=== PATIENT | female | born 1960 | race Asian ===

== ENCOUNTER 2024-09-05 13:53 | Observation (INO) | payer SELFPAY ==
[2024-09-05] VITALS (13 sets, daily range): BP systolic 133–141; BP diastolic 87–102; PULSE 99–110; TEMP 36.4–37.2; O2SAT 92–99; BMI 29.1; BMI 29.4
--- NOTE | 2024-09-05 14:24 | ECG_ITS ---
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
--- NOTE | 2024-09-05 14:26 | ED_ITS ---
<Statement entered by Jamey Odom MD - 09/05/24 18:45> Chart was sent to my inbox for administrative and group management purposes. I was the attending physicians working during the patients hospital course. The patient was seen and managed independently by the MLP. I did not personally see or evaluate this patient, nor was I involved in the patient medical decision making process or plans of care. Pt was dispositioned by the MLP with complete independence and I was not involved in planning, and am reviewing this chart at a later date. I was available for consultation should the MLP request during this patients ED stay. Midlevel this documentation has been reviewed and approved. HPI HPI - General Adult General Chief complaint: Abdominal Pain Stated complaint: URTI COMPLAINTS Time Seen by Provider: 09/05/24 14:02 Source: patient Mode of arrival: walk-in Limitations: no limitations History of Present Illness HPI narrative: Patient is a 63-year-old female with no significant medical history who presents to the emergency department for 2-week history of shortness of breath and right upper quadrant abdominal pain. She reports most of her pain in the epigastrium with radiation to the right upper quadrant, pain is worse after eating. She denies fevers, chills. She has had a cough but no sputum production or chest congestion. She states when she eats she feels sometimes as though the food gets stuck in her esophagus and points to the sternal area. She reports pain with pushing on her abdomen and with eating but does not have pain constantly throughout the day. She denies previous abdominal surgeries. She has not had any low abdominal pain, flank or back pain, urinary symptoms or diarrhea. She states she feels winded when she is walking, she is noted to have tachypnea at initial interview. Related Data Home Medications ?Medication ?Instructions ?Recorded ?Confirmed No Known Home Medications 09/05/24 09/05/24 Allergies Allergy/AdvReac Type Severity Reaction Status Date / Time codeine Allergy Intermediate Hives Verified 09/05/24 14:15 clarithromycin (From Biaxin) Allergy Mild Hives Verified 09/05/24 14:15 Opioid HPI Opioid Management Most Recent Opioid Data: No Data to Display Review of Systems ROS Constitutional Denies: fever or chills Ears, nose, mouth, and throat Denies: throat pain or nasal congestion Cardiovascular Denies: chest pain Respiratory Reports: shortness of breath and cough; Denies: wheezing Gastrointestinal Reports: abdominal pain; Denies: nausea, vomiting or diarrhea Musculoskeletal Denies: back pain or neck pain Integumentary/Breast Denies: rash Neurological Denies: numbness in extremities or weakness in extremities Hematologic/Lymphatic Denies: easy bruising or easy bleeding [facility] Social History Little interest or pleasure in doing things: not at all Feeling down, depressed, or hopeless: not at all Exam Narrative Exam Narrative: Gen.: Awake, alert, in no distress Head: Normocephalic, atraumatic ENT: Moist mucous membranes Respiratory: No respiratory distress, faint expiratory wheezing in the right upper lobe, tachypnea noted Cardio: Regular rate and rhythm Gastrointestinal: Abdomen is soft, nondistended and tender to palpation in the epigastrium with no guarding or rebound, mild tenderness in the right upper quadrant. Extremities: Moves extremities equally Psych: Normal mood and affect Neuro: No focal neuro deficit Skin: Warm, dry, intact Constitutional Vital Signs, click to edit/add: Last Vital Signs Temp 99.0 F 09/05/24 14:15 Pulse 104 H 09/05/24 15:00 Resp 21 H 09/05/24 15:00 BP 133/92 H 09/05/24 14:44 Pulse Ox 99 09/05/24 15:00 O2 Del Method Room Air 09/05/24 14:55 Course Vital Signs Vital signs: Vital Signs Temperature 99.0 F 09/05/24 14:15 Pulse Rate 106 H 09/05/24 14:15 Respiratory Rate 20 09/05/24 14:15 Blood Pressure 141/102 H 09/05/24 14:15 Pulse Oximetry 94 L 09/05/24 14:15 Oxygen Delivery Method Room Air 09/05/24 14:15 Temperature 99.0 F 09/05/24 14:15 Pulse Rate 104 H 09/05/24 15:00 Respiratory Rate 21 H 09/05/24 15:00 Blood Pressure 133/92 H 09/05/24 14:44 Pulse Oximetry 99 09/05/24 15:00 Oxygen Delivery Method Room Air 09/05/24 14:55 Medical Decision Making MDM Narrative Medical decision making narrative: Patient was treated with Levsin and albuterol breathing treatment with imp rovement of her respiration in the ER, she is breathing more comfortably. Laboratory studies reviewed and noted showing elevated D-dimer, elevated BNP, elevated LFTs. Patient was sent for right upper quadrant ultrasound which shows a contracted gallbladder as the patient was not n.p.o., however there is evidence of gallstones with no evidence of acute cholecystitis. CT angio of the chest shows the patient has a small to moderate pericardial effusion with right- sided pleural effusion and interstitial edema of the lung. Case discussed with Dr. Dumont ([id number]) for cardiology who recommends admitting the patient to this facility with echocardiogram. Cardiology can be reconsulted if the patient does not fact have a large pericardial effusion, however this may be a finding that is equivocal on the CT. Patient and family are in agreement with admission for further evaluation and treatment of CHF, gallstones. SUPERVISED APC VISIT, PHYSICIAN ATTESTATION: Based on the medical record the care appears appropriate. ? Medical Records Medical records reviewed: Yes I reviewed the patient's medical records Lab Data Lab results reviewed: Yes I reviewed the patient's lab results Labs: Lab Results 09/05/24 09/05/24 Range/Units 14:37 14:40 WBC 8.8 (4.0-11.0) 10^3/uL RBC 4.46 (4.20-5.40) 10^6/uL Hgb 13.7 (12.0-16.0) g/dL Hct 41.3 (36.0-48.0) % MCV 92.6 (81.0-99.0) fL MCH 30.7 (26.7-34.0) pg MCHC 33.2 (29.9-35.2) g/dL RDW 13.8 (11.0-15.0) % Plt Count 288 (150-450) 10^3/uL MPV 10.5 (9.5-13.5) fL Neut % (Auto) 64.6 (43.0-75.0) % Lymph % (Auto) 23.8 (20.5-60.0) % Mcleod % (Auto) 9.0 (1.7-12.0) % Eos % (Auto) 1.3 (0.9-7.0) % Baso % (Auto) 1.0 (0.2-2.0) % Neut # (Auto) 5.7 (1.4-6.5) 10^3/uL Lymph # (Auto) 2.1 (1.2-3.8) 10^3/uL Mcleod # (Auto) 0.8 (0.3-0.8) 10^3/uL Eos # (Auto) 0.1 (0.0-0.7) 10^3/uL Baso # (Auto) 0.1 (0.0-0.1) 10^3/uL Abs Immat Gran (auto) 0.03 (0.00-0.03) 10^3/uL Imm/Tot Granulo (auto) 0.3 (0.0-0.5) % PT 11.9 H (9.0-11.6) sec INR 1.14 D-Dimer 1.27 H* (<=0.59) mg/L FEU VBG pH 7.496 H (7.330-7.430) VBG pCO2 34.4 L (40.0-52.0) mmHg Sodium 139 (136-145) mmol/L Potassium 4.9 (3.5-5.1) mmol/L Chloride 102 (98-107) mmol/L Carbon Dioxide 26.4 (21.0-32.0) mmol/L Anion Gap 15.5 BUN 15.0 (7.0-18.0) mg/dL Creatinine 0.98 (0.55-1.02) mg/dL Est GFR ( Amer) >60 (>=60 mL/min/1.73m^2) Est GFR (Non-Af Amer) 58 L (>=60 mL/min/1.73m^2) BUN/Creatinine Ratio 15.3 Glucose 131 H (74-106) mg/dL Lactate 1.7 (0.4-2.0) mmol/L Calcium 9.4 (8.5-10.1) mg/dL Total Bilirubin 0.9 (0.2-1.0) mg/dL AST 163 H (15-37) U/L ALT 378 H (14-59) U/L Alkaline Phosphatase 139 H (46-116) U/L Troponin I High Sens 34.1 (4.0-51.3) pg/mL NT-Pro-B Natriuret Pep 2312.0 H* (<=900.0) pg/mL Total Protein 7.2 (6.4-8.2) g/dL Albumin 3.7 (3.4-5.0) g/dL Globulin 3.5 g/dL Albumin/Globulin Ratio 1.1 Lipase 51.0 (16.0-77.0) U/L Urine Color Yellow (YELLOW) Urine Clarity Clear (CLEAR) Urine pH 6.5 (5.0-9.0) Ur Specific [place] 1.020 (1.005-1.025) Urine Protein 30 A (NEG/TRACE) mg/dL Urine Glucose (UA) Negative (NEGATIVE) mg/dL Urine Ketones Trace A (NEGATIVE) mg/dL Urine Occult Blood Negative (NEGATIVE) Urine Nitrite Negative (NEGATIVE) Urine Bilirubin Negative (NEGATIVE) Urine Urobilinogen 1.0 (0.2-1.0) EU/dL Ur Leukocyte Esterase Trace A (NEGATIVE) Urine RBC None seen (0-2) #/HPF Urine WBC 0-2 A (NONE SEEN) #/HPF Ur Squamous Epith Cells Few A (NONE/RARE) #/LPF Urine Crystals None seen (None Seen) #/HPF Urine Bacteria Trace A (NONE SEEN) #/HPF Urine Casts None seen (NONE SEEN) #/LPF Urine Mucus Trace A (NONE SEEN) Ur Culture Indicated? No Imaging Data CT scan - chest: Attestation: I have reviewed the pertinent imaging results. Radiologist's impression: ITS Impressions Upper Quadrant Ultrasound 09/05/24 15:09 IMPRESSION: 1. Probable cholelithiasis, however no other findings to suggest acute cholecystitis are evident. 2. Diffuse hepatic steatosis. Electronically authenticated by: NICOLE TENORIO Date: 09/05/2024 16:27 Chest CTA 09/05/24 15:44 IMPRESSION: 1. No pulmonary embolism. 2. Pulmonary interstitial edema and small right pleural effusion. 3. Small moderate-sized pericardial effusion. Electronically authenticated by: NICOLE TENORIO Date: 09/05/2024 16:07 ECG Data Attestation: I personally reviewed and interpreted this ECG as follows: (Sinus tachycardia at a rate of 114, no acute ST elevation or ectopy. EKG reviewed by attending physician) Discharge Plan Discharge Chief Complaint: Abdominal Pain Patient Disposition: Admitted as Observation Time of Disposition Decision: 16:42
[2024-09-05 14:50] LABS: PCO2 VBG 34.4 mmHg (40.0-52.0); pH VBG 7.496 (7.330-7.430)
[2024-09-05] MEDS: HYOSCYAMINE SULFATE 0.125 MG TAB.SUBL SL (14:50)
[2024-09-05] MEDS: ALBUTEROL SULFATE 2.5 MG/3 ML VIAL NEB IH (14:55)
[2024-09-05 14:56] LABS: Basophils Absolute Auto 0.1 10^3/uL (0.0-0.1); Eosinophils Absolute Auto 0.1 10^3/uL (0.0-0.7); Eosinophils Percent Auto 1.3 % (0.9-7.0); Hematocrit 41.3 % (36.0-48.0); Hemoglobin 13.7 g/dL (12.0-16.0); Immature Granulocytes Abs Auto 0.03 10^3/uL (0.00-0.03); Immature Granulocytes Pct Auto 0.3 % (0.0-0.5); Lymphocytes Absolute Auto 2.1 10^3/uL (1.2-3.8); Lymphocytes Percent Auto 23.8 % (20.5-60.0); Mean Corpuscular HGB Conc 33.2 g/dL (29.9-35.2); Mean Corpuscular Hemoglobin 30.7 pg (26.7-34.0); Mean Corpuscular Volume 92.6 fL (81.0-99.0); Mean Platelet Volume 10.5 fL (9.5-13.5); Monocytes Absolute Auto 0.8 10^3/uL (0.3-0.8); Neutrophils Absolute Auto 5.7 10^3/uL (1.4-6.5); Neutrophils Percent Auto 64.6 % (43.0-75.0); Platelet Count 288 10^3/uL (150-450); Red Blood Count 4.46 10^6/uL (4.20-5.40); Red Cell Distribution Width 13.8 % (11.0-15.0); White Blood Count 8.8 10^3/uL (4.0-11.0)
[2024-09-05 15:00] LABS: Bilirubin Urine NEGATIVE (NEGATIVE); Blood Urine NEGATIVE (NEGATIVE); Clarity Urine CLEAR (CLEAR); Color Urine YELLOW (YELLOW); Glucose Urine UA NEGATIVE (NEGATIVE); Ketones Urine TRACE mg/dL (NEGATIVE); Leukocyte Esterase Urine TRACE (NEGATIVE); Nitrite Urine NEGATIVE (NEGATIVE); Protein Urine 30 mg/dL (NEG/TRACE); pH Urine 6.5 (5.0-9.0)
[2024-09-05 15:02] LABS: Urine Microscopic Indicated YES
[2024-09-05 15:05] LABS: INR 1.14; Prothrombin Time 11.9 sec (9.0-11.6)
[2024-09-05 15:08] LABS: Alanine Aminotransferase 378 U/L (14-59); Albumin Globulin Ratio 1.1; Albumin Level 3.7 g/dL (3.4-5.0); Alkaline Phosphatase 139 U/L (46-116); Anion Gap 15.5; Aspartate Amino Transferase 163 U/L (15-37); BUN Creatinine Ratio 15.3; Bilirubin Total 0.9 mg/dL (0.2-1.0); Calcium 9.4 mg/dL (8.5-10.1); Carbon Dioxide 26.4 mmol/L (21.0-32.0); Chloride 102 mmol/L (98-107); D Dimer 1.27 mg/L FEU (<=0.59); Estimated GFR (African America >60 (>=60 mL/min/1.73m^2); Estimated GFR (Non-African Ame 58 (>=60 mL/min/1.73m^2); Globulin 3.5 g/dL; Glucose 131 mg/dL (74-106); Potassium 4.9 mmol/L (3.5-5.1); Sodium 139 mmol/L (136-145); Total Protein 7.2 g/dL (6.4-8.2)
--- NOTE | 2024-09-05 15:09 | US_ITS ---
The [address] [address] Patient Name: JOHNNY LOBO MRN: [id number] date: 1960 Sex: F Assigned Patient Location: ER Current Patient Location: ER Accession/Order Number: [id number] Exam Date: 09/05/2024 15:48 Report Date: 09/05/2024 16:27 At the request of: YAIR SILVESTRE Procedure: US right upper quadrant EXAM: Abdominal ultrasound limited CLINICAL INDICATION: right upper quad pain. COMPARISON: CT scan dated 03/17/2012 TECHNIQUE: Grayscale and color Doppler imaging was performed of the right upper quadrant abdomen. FINDINGS: Liver: Diffuse hepatic steatosis. No hepatomegaly. No abnormal hepatic masses. Portal and hepatic veins are grossly patent. Gallbladder: Probable cholelithiasis. No gallbladder wall thickening. No pericholecystic fluid. No evidence of sonographic Dominguez's sign noted by the department sales manager. Nondistended gallbladder. Biliary: No intrahepatic biliary ductal dilation. Common bile duct measures 5 mm. Kidneys: No right hydronephrosis. No sonographically evident right renal calculi. No right renal masses. Right kidney measures 11.3 cm length. Aorta/IVC: Patent and normal caliber where visualized. US/US right upper quadrant IMPRESSION: 1. Probable cholelithiasis, however no other findings to suggest acute cholecystitis are evident. 2. Diffuse hepatic steatosis. Electronically authenticated by: NICOLE TENORIO Date: 09/05/2024 16:27
[2024-09-05 15:10] LABS: Lactate/Lactic Acid 1.7 mmol/L (0.4-2.0)
[2024-09-05 15:13] LABS: Troponin I High Sensitivity 34.1 pg/mL (4.0-51.3)
[2024-09-05 15:19] LABS: Bacteria Urine TRACE #/HPF (NONE SEEN); Cast Seen? NONE SEEN #/LPF (NONE SEEN); Crystals Seen? None Seen #/HPF (None Seen); Mucus Urine TRACE (NONE SEEN); RBC Urine NONE SEEN #/HPF (0-2); Squamous Epithelial Cell Urine FEW #/LPF (NONE/RARE); WBC Urine 0-2 #/HPF (NONE SEEN)
[2024-09-05 15:20] LABS: Urine Culture Indicated NO
--- NOTE | 2024-09-05 15:44 | CT_ITS ---
[address] [address] Patient Name: JOHNNY LOBO MRN: [id number] date: 1960 Sex: F Assigned Patient Location: ER Current Patient Location: Accession/Order Number: [id number] Exam Date: 09/05/2024 15:35 Report Date: 09/05/2024 16:07 At the request of: YIAR SILVESTRE Procedure: CT angio chest EXAM: CT pulmonary angiogram of the chest using 100 mL of IV iodinated contrast. 3-D imaging was performed. Dose reduction technique used: Automated exposure control and/or adjustment of the mA and/or kV according to patient size and/or use of iterative reconstruction technique. REASON FOR EXAM: Shortness of breath x 2 weeks COMPARISON: None FINDINGS: No pulmonary emboli. No pneumothorax. No acute fractures. No concerning pulmonary nodules. No definite lymphadenopathy in the chest. Interlobular septal thickening in both lungs. Small right pleural effusion. Coronary atherosclerotic calcifications are present. Cardiomegaly. Small to moderate-sized pericardial effusion. Remainder unremarkable. CT/CT angio chest IMPRESSION: 1. No pulmonary embolism. 2. Pulmonary interstitial edema and small right pleural effusion. 3. Small moderate-sized pericardial effusion. Electronically authenticated by: NICOLE TENORIO Date: 09/05/2024 16:07
[2024-09-05] MEDS: FUROSEMIDE 40 MG/4 ML VIAL IVP (17:56)
[2024-09-06] VITALS (16 sets, daily range): BP systolic 125–132; BP diastolic 72–84; PULSE 93–106; TEMP 36.4–36.8; O2SAT 92–98
[2024-09-06 05:54] LABS: Basophils Absolute Auto 0.1 10^3/uL (0.0-0.1); Basophils Percent Auto 1.2 % (0.2-2.0); Eosinophils Absolute Auto 0.2 10^3/uL (0.0-0.7); Eosinophils Percent Auto 2.9 % (0.9-7.0); Hematocrit 40.4 % (36.0-48.0); Hemoglobin 13.6 g/dL (12.0-16.0); Immature Granulocytes Abs Auto 0.04 10^3/uL (0.00-0.03); Immature Granulocytes Pct Auto 0.5 % (0.0-0.5); Lymphocytes Absolute Auto 1.8 10^3/uL (1.2-3.8); Lymphocytes Percent Auto 24.2 % (20.5-60.0); Mean Corpuscular HGB Conc 33.7 g/dL (29.9-35.2); Mean Corpuscular Hemoglobin 31.2 pg (26.7-34.0); Mean Corpuscular Volume 92.7 fL (81.0-99.0); Mean Platelet Volume 10.2 fL (9.5-13.5); Monocytes Absolute Auto 0.9 10^3/uL (0.3-0.8); Monocytes Percent Auto 11.5 % (1.7-12.0); Neutrophils Absolute Auto 4.5 10^3/uL (1.4-6.5); Neutrophils Percent Auto 59.7 % (43.0-75.0); Platelet Count 282 10^3/uL (150-450); Red Blood Count 4.36 10^6/uL (4.20-5.40); Red Cell Distribution Width 13.9 % (11.0-15.0); White Blood Count 7.5 10^3/uL (4.0-11.0)
[2024-09-06] MEDS: FUROSEMIDE 40 MG/4 ML VIAL IVP ×2 (06:03→18:11)
[2024-09-06 06:33] LABS: Alanine Aminotransferase 323 U/L (14-59); Albumin Globulin Ratio 1.1; Albumin Level 3.7 g/dL (3.4-5.0); Alkaline Phosphatase 128 U/L (46-116); Anion Gap 14.2; Aspartate Amino Transferase 129 U/L (15-37); BUN Creatinine Ratio 19.2; Bilirubin Total 0.9 mg/dL (0.2-1.0); Calcium 9.1 mg/dL (8.5-10.1); Carbon Dioxide 28.4 mmol/L (21.0-32.0); Chloride 101 mmol/L (98-107); Estimated GFR (African America >60 (>=60 mL/min/1.73m^2); Estimated GFR (Non-African Ame >60 (>=60 mL/min/1.73m^2); Globulin 3.5 g/dL; Glucose 128 mg/dL (74-106); Potassium 3.6 mmol/L (3.5-5.1); Sodium 140 mmol/L (136-145); Total Protein 7.2 g/dL (6.4-8.2)
--- NOTE | 2024-09-06 07:00 | CA_ITS ---
Patient Name: JOHNNY LOBO MR#: [id number] : 1960 Exam Date: 09/06/2024 Ordering Doctor: SHAIKH James OLIVERA . ECHOCARDIOGRAM REPORT PROCEDURE: CA ECHO DOPPLER COMPLETE INDICATIONS: chf COMPARISON: None. DESCRIPTION: COMPLETE ECHOCARDIOGRAM Real-time transthoracic echocardiography with 2D, M-mode, spectral and color flow Doppler performed. QUALITY: Technical quality was good. LEFT VENTRICLE: Mild dilatation. Mild concentric left ventricular hypertrophy. LV EF: Global left ventricular systolic function is severely reduced; visually estimated ejection fraction is 15 to 20%. Severe, diffuse hypokinesis. DIASTOLIC: Grade 2 diastolic dysfunction. ATRIAL SEPTUM: Inadequately seen. LEFT ATRIUM: Severe dilatation. RIGHT ATRIUM: Mild dilatation. RIGHT VENTRICLE: Normal chamber size. Decreased right ventricular systolic function. TRICUSPID VALVE: Normal mobility and thickness. Mild regurgitation. No evidence of pulmonary hypertension. RVSP 29mmHg MITRAL VALVE: Normal mobility and thickness. No evidence of mitral valve stenosis. There is no mitral annular calcification. Moderate mitral regurgitation. AORTIC VALVE: Normal trileaflet appearance. No visible sclerosis. Normal leaflet mobility. No evidence of aortic valve stenosis. No aortic regurgitation. AORTIC ROOT: Normal diameter and appearance. PULMONIC VALVE: Normal thickness and mobility. No stenosis. Mild regurgitation. PERICARDIUM: Small pericardial effusion. IVC: Collapses with inspirations. Normal size. CONCLUSION: 1. Global left ventricular systolic function is severely reduced; visually estimated ejection fraction is 15 to 20% 2. Mild left ventricular hypertrophy 3. The right ventricle is normal in size with reduced systolic function 4. Grade 2 diastolic dysfunction 5. Biatrial dilatation 6. Mild tricuspid regurgitation 7. Moderate mitral regurgitation 8. Mild pulmonic regurgitation 9. Small circumferential pericardial effusion Adult Echocardiography Procedure Report Left Ventricle LVEDD (3.7 - 5.6 cm): 5.72 cm LVESD (2.2 - 4.0 cm): 4.97 cm LVIVS thickness (0.6 - 1.2 cm): 1.29 cm LVPW thickness (0.5 - 1.0 cm): 1.07 cm LVOT Max Gradient: 2 mm[Hg] Peak Velocity (LVOT): 63.20 cm/s Mean Velocity (LVOT): 41.20 cm/s LVOT Diameter 2.00 cm Left Ventricular Ejection Fraction: 27.30 % Left Atrium LA Volume Index (2D A2C): 30965 mm3 Left Atrium Systolic Dimension: 4.80 cm Mitral Valve MV E to A Ratio: 1.60 Mitral Valve A-Wave Peak Velocity: 61.20 cm/s Mitral Valve E-Wave Peak Velocity: 98.20 cm/s Right Ventricle Aorta AO Root Diam: 3.20 cm Aortic Valve AoV Area (Peak Abner): 2.07 cm2 AoV Area (VTI): 1.97 cm2 Peak Velocity(Antegrade Flow): 95.90 cm/s Peak Gradient(Antegrade Flow): 4 mm[Hg] Mean Velocity(Antegrade Flow): 67.30 cm/s Mean Gradient(Antegrade Flow): 2 mm[Hg] Velocity Time Integral: 15.90 cm Tricuspid Valve Peak Velocity (Regurgitant Flow): 257.00 cm/s Peak Velocity: 53.80 cm/s Pulmonic Valve Peak Velocity: 78.70 cm/s, 80.10 cm/s Peak Gradient: 3 mm[Hg] Right Atrium Dictated by: Navdeep Alva M.D. on 09/08/2024 at 15:08 Approved by: Navdeep Alva M.D. on 09/08/2024 at 15:13
--- NOTE | 2024-09-06 10:56 | P.HP_ITS ---
HPI H&P: HPI History of Present Illness Chief complaint: URTI COMPLAINTS CHF SOB CHOLELITHIASIS Narrative: 63-year-old female with no past medical history presented to ER with dry cough for 2 weeks and worsening shortness of breath for over a week. She reports that her shortness of breath is exertional in nature and last evening she could hardly catch her breath. She also reports intermittent epigastric and right upper quadrant abdominal pain/discomfort that is associated with food intake. She denies nausea or vomiting but admits to postprandial fullness and abdominal bloating. She denies constipation or diarrhea. Upon arrival, she had increased work of breathing with tachypnea and accessory muscles use and she was given one dose of albuterol. Her work up revealed elevated BNP and evidence of volume overload on CXR and CTA that also revealed moderate sized pericardial effusion. Patient also had an ultrasound of right upper quadrant that showed cholelithiasis but no evidence of cholecystitis. Patient admitted for acute congestive heart failure and symptomatic cholelithiasis. She was started on IV Lasix 40 twice daily and admitted for observation overnight. Opioid HPI Opioid Management Most Recent Pain and Opioid Data: Last Pain Assessment 09/06/24 10:00 Last ORT Total Score 0 09/05/24 18:21 09/05/24 Last ORT Risk Category Low Risk 09/05/24 18:21 09/05/24 Review of Systems ROS Status of ROS 10 or more systems reviewed and unremark able except as noted in history and below [facility] Medical History (Updated 09/06/24 @ 11:02 by Shaikh Tameka MD) Fatty liver disease, nonalcoholic ?K76.0 - Fatty (change of) liver, not elsewhere classified (ICD-10) Social History (Updated 09/06/24 @ 11:01 by Shaikh Tameka MD) Within the past year, how often did you have a drink containing alcohol: never Score interpretation: A score less than 3 is consistent with normal alcohol consumption. Smoking status: Never smoker Non-prescribed substance use: denies use Highest level of school completed/degree received: high school graduate Little interest or pleasure in doing things: not at all Feeling down, depressed, or hopeless: not at all Meds Home Medications and Allergies Home Medications ?Medication ?Instructions ?Recorded ?Confirmed ?Type No Known Home Medications 09/05/24 09/05/24 History Allergies Allergy/AdvReac Type Severity Reaction Status Date / Time codeine Allergy Intermediate Hives Verified 09/05/24 14:15 clarithromycin (From Biaxin) Allergy Mild Hives Verified 09/05/24 14:15 Exam Constitutional Vital Signs, click to edit/add: Last Vital Signs Temp 97.5 F L 09/06/24 07:44 Pulse 96 H 09/06/24 09:59 Resp 18 09/06/24 07:44 BP 125/84 09/06/24 07:44 Pulse Ox 95 09/06/24 09:14 O2 Del Method Room Air 09/06/24 09:14 Documenting provider has reviewed patient's vital signs: yes Common normals: no apparent distress and oriented x3 General appearance: cooperative and comfortable HENMT Common normals: normocephalic and head/scalp atraumatic Head and scalp: normocephalic and atraumatic Eye Common normals: conjunctivae normal and no scleral icterus Conjunctiva: conjunctiva(e) normal Respiratory Common normals: normal respiratory effort, no use of accessory muscles and clear to auscultation bilaterally Effort & inspection: able to speak in complete sentences Auscultation: diminished lung sounds Cardio Common normals: regular rate, S1 normal heart sound and S2 normal heart sound Rate: regular rate Heart sounds: S1 normal and S2 normal GI Common normals: Normal to inspection, nondistended, normoactive bowel sounds present, soft to palpation, non-tender and no hepatosplenomegaly Palpation: soft and no hepatosplenomegaly Extremity Common normals: no clubbing, cyanosis or edema Neuro Common normals: oriented x3, moves all extremities and no focal motor deficits Psych Common normals: mental status grossly normal, denies hallucinations, denies homicidal ideation and denies suicidal ideation Results Labs Labs: Short CBC 09/05/24 09/06/24 Range/Units 14:37 05:40 WBC 8.8 7.5 (4.0-11.0) 10^3/uL Hgb 13.7 13.6 (12.0-16.0) g/dL Hct 41.3 40.4 (36.0-48.0) % Plt Count 288 282 (150-450) 10^3/uL BMP 09/05/24 09/06/24 14:37 05:40 Sodium 139 140 Potassium 4.9 3.6 Chloride 102 101 Carbon Dioxide 26.4 28.4 BUN 15.0 15.0 Creatinine 0.98 0.78 Glucose 131 H 128 H Calcium 9.4 9.1 Liver Function 09/05/24 09/06/24 Range/Units 14:37 05:40 Total Bilirubin 0.9 0.9 (0.2-1.0) mg/dL AST 163 H 129 H (15-37) U/L ALT 378 H 323 H (14-59) U/L Alkaline Phosphatase 139 H 128 H (46-116) U/L Albumin 3.7 3.7 (3.4-5.0) g/dL Urine 09/05/24 Range/Units 14:40 Urine Color Yellow (YELLOW) Urine Clarity Clear (CLEAR) Urine pH 6.5 (5.0-9.0) Ur Specific [place] 1.020 (1.005-1.025) Urine Protein 30 A (NEG/TRACE) mg/dL Urine Glucose (UA) Negative (NEGATIVE) mg/dL ABG ABG results: 09/05/24 14:37 VBG pH 7.496 H VBG pCO2 34.4 L Assessment and Plan Assessment and Plan (1) Acute congestive heart failure: Assessment and Plan: Congestive heart failure with elevated BNP, pleural effusion and pericardial effusion on chest x-ray and CTA chest. Patient diuresed well overnight with IV Lasix. Still volume overload and will benefit from continued IV diuresis. Echocardiogram ordered to assess cardiac structure is pending. Monitor intake and output. Daily weights. Qualifiers: Heart failure type: unspecified Qualified Code(s): I50.9 - Heart failure, unspecified (2) Cholelithiasis: Assessment and Plan: Symptomatic cholelithiasis with no evidence of cholecystitis. Will order HIDA scan as patient has elevated liver enzymes. Qualifiers: Biliary obstruction: without biliary obstruction Cholecystitis presence: without cholecystitis Cholelithiasis location: gallbladder Qualified Code(s): K80.20 - Calculus of gallbladder without cholecystitis without obstruction (3) Transaminitis: Assessment and Plan: Likely due to combination of fatty liver disease/cholelithiasis along with vascular congestion from acute congestive heart failure. No evidence of cholecystitis on ultrasound and clinical exam. Will order hepatitis panel and HIDA scan (4) Fatty liver disease, nonalcoholic: Assessment and Plan: Recommend weight loss. This can be discussed as an outpatient (5) Pericardial effusion: Assessment and Plan: Noted on CTA chest. Echocardiogram is pending. Continue with IV Lasix (6) D-dimer, elevated: Assessment and Plan: No evidence of pulmonary embolism on CTA
--- NOTE | 2024-09-06 11:27 | CM.NOTE ---
Rounds made with Dr. English. Dr. English reviews test results and plan of care. Ms. Wade verbalizes understanding.
--- NOTE | 2024-09-06 12:01 | CM.NOTE ---
Reviewed insurance information with Ms. Wade. Currently without insurance. Financial Counselors consulted.
--- NOTE | 2024-09-06 12:46 | DIETREC ---
Recommend Heart Healthy diet (low fat, 2 gm sodium, low caffeine) d/t dx CHF, pericardial effusion, fatty liver disease, edema.
[2024-09-06 13:10] LABS: Estimated Average Glucose 137 mg/dL; Glycohemoglobin A1C 6.4 % (4.5-6.2)
[2024-09-06] MEDS: LOSARTAN POTASSIUM 50 MG TABLET PO (14:28)
--- NOTE | 2024-09-06 19:44 | NUTR.NU ---
Diet consult completed; nutrition assessment to follow.
[2024-09-06] MEDS: CARVEDILOL 6.25 MG TABLET PO (21:47)
[2024-09-07] VITALS: PULSE 83
[2024-09-07 02:00] VITALS: PULSE 91
[2024-09-07 03:58] VITALS: BP 118/83; PULSE 94; TEMP 36.5; O2SAT 95
--- NOTE | 2024-09-07 03:59 | PC.NURSE ---
[facility] here for transport to [facility]. Vitals taken, IV will stay in for transport.
--- NOTE | 2024-09-07 04:05 | PC.NURSE ---
Report given to nurse at [facility] for room 3125
[2024-09-07 09:13] LABS: HBsAg Screen Negative (Negative); HCV Ab Non Reactive (Non Reactive); Hep A Ab, IgM Negative (Negative); Hep B Core Ab, IgM Negative (Negative)
--- NOTE | 2024-09-08 11:02 | P.DS_ITS ---
DS: Providers Provider Date of admission: 09/05/24 18:04 Primary care physician: DUGLAS RUFF Admitting clinician: Shaikh Tameka Attending physician on admission: Shaikh Tameka Consults: 09/05/24 Consult to Dietitian Routine Reason for consultation: unintentional weight loss of 2 lbs Attending physician on discharge: Shaikh Tameka Discharging clinician: Shaikh Tameka Anticipated date of discharge: 09/08/24 DS: Diagnosis Discharge Diagnosis (1) Acute congestive heart failure: Qualifiers: Heart failure type: unspecified Qualified Code(s): I50.9 - Heart failure, unspecified (2) Cholelithiasis: Qualifiers: Biliary obstruction: without biliary obstruction Cholecystitis presence: without cholecystitis Cholelithiasis location: gallbladder Qualified Code(s): K80.20 - Calculus of gallbladder without cholecystitis without obstruction (3) Transaminitis: (4) Fatty liver disease, nonalcoholic: (5) Pericardial effusion: (6) D-dimer, elevated: DS: Summary Hospital Course Hospital Course: 63-year-old female with no past medical history presented to ER with dry cough for 2 weeks and worsening shortness of breath for over a week. She also reported intermittent epigastric and right upper quadrant abdominal pain/discomfort associated with food intake. Upon arrival, she had increased work of breathing with tachypnea and accessory muscles use and she was given one dose of albuterol. Her work up revealed elevated BNP and evidence of volume overload on CXR and CTA that also revealed moderate sized pericardial effusion. Patient also had an ultrasound of right upper quadrant that showed cholelithiasis but no evidence of cholecystitis. Patient admitted for acute congestive heart failure and symptomatic cholelithiasis. She was started on IV Lasix 40 twice daily. Subsequent day of hospital stay, she felt better overall but was stil SOB on exertion. Her ECHO revealed severely reduced EF, global hypokinesis and after consultation with Cardiology, she was transfer to [facility] for LHC. Time Spent with Patient Time attestation: Total time spent providing and/or coordinating discharge services: Exam Constitutional Vital Signs, click to edit/add: Last Vital Signs Temp 97.7 F 09/07/24 03:58 Pulse 94 H 09/07/24 03:58 Resp 18 09/07/24 03:58 BP 118/83 09/07/24 03:58 Pulse Ox 95 09/07/24 03:58 O2 Del Method Room Air 09/07/24 03:58 Discharge Plan Discharge Disposition: [facility] Condition: Good Discharge Date/Time: 09/07/24 04:11 Discharge Location: [facility] Discharge location: [facility]
== END 2024-09-07 04:11 | disposition short-term general hospital (02) ==
LOC: ER 16:43 → MS 18:13
PROVIDERS: Physician Assistant; Admitting Provider Internal Medicine; Emergency Provider Emergency Medicine; PCP Family Medicine; Visit Provider Internal Medicine
DX: I50.21 Acute systolic (congestive) heart failure (principal); K80.20 Calculus of gallbladder without cholecystitis without obstruction; I42.9 Cardiomyopathy, unspecified; K76.0 Fatty (change of) liver, not elsewhere classified; R79.89 Other specified abnormal findings of blood chemistry; I31.39 Other pericardial effusion (noninflammatory); R74.01 Elevation of levels of liver transaminase levels
CPT/HCPCS: 36415; 71275; 76705; 80053; 80074; 81001; 82800; 83036; 83605; 83690; 83880; 84484; 85025; 85378; 85610; 93005; 93306; 94640; 94761; 96374; 96376; 99285; G0378; J1940; Q9967

== ENCOUNTER 2024-11-16 12:57 | Outpatient (OUT) | payer SELFPAY ==
--- NOTE | 2024-11-16 13:00 | CA_ITS ---
Patient Name: JOHNNY LOBO MR#: [id number] : 1960 Exam Date: 11/16/2024 Ordering Doctor: DR. AMERICA GURROLA M.D. ECHOCARDIOGRAM REPORT PROCEDURE: CA ECHO DOPPLER COMPLETE INDICATIONS: Pericardial effusion, CHF COMPARISON: None. DESCRIPTION: COMPLETE ECHOCARDIOGRAM Real-time transthoracic echocardiography with 2D, M-mode, spectral and color flow Doppler performed. QUALITY: Technical quality was good. LEFT VENTRICLE: Normal chamber size. Normal left ventricular wall thickness. Systolic function is moderately to severely reduced. LV EF: Moderately to severely reduced left ventricular ejection fraction, (30%). DIASTOLIC: ATRIAL SEPTUM: Visually appears intact. LEFT ATRIUM: Mild chamber dilatation. RIGHT ATRIUM: Mild chamber dilatation. RIGHT VENTRICLE: Normal chamber size. Normal right ventricular systolic function. TRICUSPID VALVE: Normal mobility and thickness. No stenosis with trivial regurgitation. No evidence of pulmonary hypertension. RVSP 23 mmHg MITRAL VALVE: Normal mobility and thickness. No evidence of mitral valve stenosis. There is no mitral annular calcification. Mild mitral regurgitation. AORTIC VALVE: Normal trileaflet appearance. No visible sclerosis. Normal leaflet mobility. No evidence of aortic valve stenosis. No aortic regurgitation. AORTIC ROOT: Normal diameter and appearance, measuring 3.3 cm. Ascending aorta is normal in size, measuring 2.9 cm. PULMONIC VALVE: Normal thickness and mobility. No stenosis. Trivial regurgitation. PERICARDIUM: No evidence of pericardial effusion. IVC: Collapses with inspirations. IVC is normal in size. PLEURA: CONCLUSION: 1. The left ventricle is normal in size and exhibits moderately to severely reduced systolic function. LVEF is estimated at 30%. 2. Normal right ventricular size and systolic function. 3. Mild biatrial dilatation. 4. Mild mitral regurgitation. 5. Normal right-sided pressures. 6. No pericardial effusion. Adult Echocardiography Procedure Report Left Ventricle LVEDD (3.7 - 5.6 cm): 5.24 cm LVESD (2.2 - 4.0 cm): 3.60 cm LVIVS thickness (0.6 - 1.2 cm): 1.13 cm LVPW thickness (0.5 - 1.0 cm): 1.01 cm e': 0.07 m/s E - e': 5.86 LVOT Max Gradient: 2.68 mm[Hg] LVOT Area (cm2): 0.82 m/s Peak Velocity (LVOT): 0.82 m/s Mean Velocity (LVOT): 0.50 m/s LVOT Diameter 2.18 cm Left Atrium LA Volume Index (2D A2C): 27.97 ml/m2 Left Atrium Systolic Dimension: 4.05 cm Mitral Valve MV E to A Ratio: 0.51 Mitral Valve A-Wave Peak Velocity: 0.81 m/s Mitral Valve E-Wave Peak Velocity: 0.41 m/s Right Ventricle Aorta AO Root Diam: 3.29 cm Ascending Ao Diam: 2.87 cm Aortic Valve AoV Area (Peak Abner): 2.41 cm2, 2.41 cm2 AoV Area (VTI): 2.58 cm2, 2.58 cm2 Peak Velocity(Antegrade Flow): 1.27 m/s Peak Gradient(Antegrade Flow): 6.46 mm[Hg] Mean Velocity(Antegrade Flow): 0.84 m/s Mean Gradient(Antegrade Flow): 3.22 mm[Hg] Velocity Time Integral: 22.50 cm Tricuspid Valve Peak Velocity (Regurgitant Flow): 2.22 m/s Pulmonic Valve Mean Gradient: 1.72 mm[Hg] Mean Velocity: 0.60 m/s Peak Velocity: 0.93 m/s, 0.91 m/s Peak Gradient: 3.34 mm[Hg], 3.43 mm[Hg] Right Atrium Right Atrium Systolic Pressure: 35.26 ml, 35.26 ml Dictated by: Omkar Acevedo M.D. on 11/16/2024 at 18:23 Approved by: Omkar Acevedo M.D. on 11/16/2024 at 18:28
== END 2024-11-16 12:58 | disposition home or self-care (01) ==
PROVIDERS: PCP Family Medicine; Visit Provider Internal Medicine Cardiovascular Disease
DX: I50.20 Unspecified systolic (congestive) heart failure (principal)
CPT/HCPCS: 93306

== ENCOUNTER 2025-01-30 09:59 | Outpatient (OUT) | payer SELFPAY ==
--- NOTE | 2025-01-30 10:00 | CA_ITS ---
Patient Name: JOHNNY LOBO MR#: [id number] : 1960 Exam Date: 01/30/2025 Ordering Doctor: DR. AMERICA GURROLA M.D. ECHOCARDIOGRAM REPORT PROCEDURE: CA ECHO LIMITED INDICATIONS: Chronic combined systolic and diastolic heart failure COMPARISON: None. DESCRIPTION: Limited ECHOCARDIOGRAM Real-time transthoracic echocardiography with 2D and M-mode performed. QUALITY: Technical quality was good. Limited echocardiogram per physician order. LEFT VENTRICLE: Normal chamber size. Systolic function is moderately reduced. There is global hypokinesis. LV EF: Moderately reduced left ventricular ejection fraction, (30-35%). DIASTOLIC: ATRIAL SEPTUM: LEFT ATRIUM: Normal chamber size. RIGHT ATRIUM: Normal chamber size. RIGHT VENTRICLE: Normal chamber size. Normal systolic function. TRICUSPID VALVE: Normal mobility and thickness. MITRAL VALVE: Normal mobility and thickness. There is no mitral annular calcification. AORTIC VALVE: Normal trileaflet appearance. No visible sclerosis. Normal leaflet mobility. AORTIC ROOT: Normal diameter and appearance, measuring 3.2 cm. Ascending aorta is normal in size. PULMONIC VALVE: Normal thickness and mobility. PERICARDIUM: Trivial pericardial effusion. IVC: Collapses with inspiration. PLEURA: CONCLUSION: 1. Moderately reduced left ventricular systolic function. LVEF is estimated at 30 to 35%. 2. Normal right ventricular size and systolic function. 3. Trivial pericardial effusion. 4. Limited study performed with no Doppler interrogation as requested. Adult Echocardiography Procedure Report Left Ventricle LVEDD (3.7 - 5.6 cm): 5.00 cm LVESD (2.2 - 4.0 cm): 3.74 cm LVIVS thickness (0.6 - 1.2 cm): 1.03 cm LVPW thickness (0.5 - 1.0 cm): 0.97 cm LVOT Diameter 2.05 cm Left Atrium LA Volume Index (2D A2C): 29.02 ml/m2 Left Atrium Systolic Dimension: 4.11 cm Mitral Valve Right Ventricle Aorta AO Root Diam: 3.16 cm Ascending Ao Diam: 2.81 cm Aortic Valve Tricuspid Valve Pulmonic Valve Right Atrium Right Atrium Systolic Pressure: 36.35 ml, 36.35 ml Dictated by: Omkar Acevedo M.D. on 01/30/2025 at 17:46 Approved by: mOkar Acevedo M.D. on 01/30/2025 at 17:50
--- OUTSIDE RECORDS SUMMARY | 2025-01-30 10:02 | XMS_ITS | Encounter Summary ---
[facility] Address [id number] [address] [place] [address] Care Team Providers Care Cook Apprentice Pastry Name Role Phone Malcolm Metcalf Primary Care Provider [phone] Encounter Details Date Type Department Care Team (Late st Contact Info) Description 11/24/2023 [facility] [address] [place] [id number] Johanny Nielsen CMA Social History Tobacco Use Types Packs/Day Years Used Date Smoking Tobacco: Never Smokeless Tobacco: Never Alcohol Use Standard Drinks/Week Comments Never 0 (1 standard drink = 0.6 oz pur e alcohol) AUDIT-C Answer Date Recorded Q1: How often do you have a drink containing alcohol? Never 12/29/2022 Q2: How many drinks containi ng alcohol do you have on a typical day when you are drinking? Patient does not drink Q3: How often do you have si x or more drinks on one occasion? Never 12/29/2022 PHQ-2 Answer Date Recorded Total Score 0 10/05/2023 Childcare Answer Date Recorded Childcare Unknown 02/08/2019 Employment Answer Date Recorded Employment Unknown 02/08/2019 Hunger Screening Answer Date Recorded Within the past 12 months we worried whether our food would run out before we got money to buy more. Never True 10/05/2023 Within the past 12 months th e food we bought just didn't last and we didn't have money to get more. Never True 10/05/2023 Comments Unknown Sex and Gender Information Value Date Recorded Sex Assigned at Not on file Legal Sex Female 12:10 PM EDT Gender Identity Not on file Sexual Orientation Not on file documented as of this encounter Miscellaneous Notes * Telephone Encounter - Johanny Nielsen CMA - 11/24/2023 1:57 PM EDT ----- Message from Malcolm Metcalf DO sent at 10/05/2023 4:10 PM EST ----- Regarding: Wellness Please set up * Telephone Encounter - Johanny Nielsen CMA - 11/24/2023 1:57 PM EDT Left message to call and schedule her wellness * Telephone Encounter - Johanny Nielsen CMA - 11/24/2023 1:57 PM EDT Left message to call and schedule wellness * Telephone Encounter - Johanny Nielsen CMA - 11/24/2023 1:57 PM EDT LM to CB documented in this encounter Plan of Treatment Not on file documented as of this encounter Visit Diagnoses Not on filedocumented in this encounter Additional Health Concerns Assessment Noted Time PHQ-9 Depression Total Score: 0 10/05/19 24 3:14 PM EST documented as of this encounter Care Teams Cook Apprentice Pastry Relationship Specialty Start Date End Date Malcolm Metcalf DO [address], [facility] [place] [address] PCP - General Family Medicine 12/28/22 documented as of this encounter
--- OUTSIDE RECORDS SUMMARY | 2025-01-30 10:02 | XMS_ITS | Encounter Summary ---
Author Organization [facility] Address [id number] [address] [place] [address] Care Team Providers Care Conservation Of Resources Commissioner Name Role Phone Malcolm Metcalf Primary Care Provider [phone] Encounter Details Date Type Department Care Team (Late st Contact Info) Description 09/06/2024 [facility] - [facility] [address] [place] [address] Ref Prov, [place] [address] Social History Tobacco Use Types Packs/Day Years [...] on file documented as of this encounter Plan of Treatment Not on file documented as of this encounter Procedures Procedure Name Priority Date/Time Associated Diagnosis Comments US ABDOMEN LMTD Routine 09/05/2024 9:[address] CTA CHEST Routine 09/05/2024 9:57 AM EST documented in this encounter Results * Ultrasound abdomen limited (09/05/2024 9:59 AM EST) Anatomical Region Laterality Modality Body, Abdomen Ultrasound us Not In System Ref Prov IMG US ORDERABLES Final R esult * CT angiogram chest (09/05/2024 9:57 AM EST) Anatomical Region Laterality Modality Lung, Body, Chest, Vascular, Body Covera N/A Computed Tomography us Not In System Ref Prov IMG CT ORDERABLES Final R esult documented in this encounter Visit Diagnoses Not on filedocumented in this encounter Additional Health Concerns Assessment Noted Time PHQ-9 Depression Total Score: 0 10/05/19 24 3:14 PM EST documented as of this encounter Care Teams Conservation Of Resources Commissioner Relationship Specialty Start Date End Date Malcolm Metcalf DO [address] [facility] [place] [address] PCP - General Family Medicine 12/28/22 documented as of this encounter
--- OUTSIDE RECORDS SUMMARY | 2025-01-30 10:02 | XMS_ITS | Clinical Summary ---
Author Organization [employer] [facility] Address [id number] [address] [place] [address] Care Team Providers Care Core Maker Name Role Phone YaakovMalcolm merrill Primary Care Provider Allergies Active Allergy Reactions Criticality Noted Date Comments Clarithromycin 12/29/2022 Codeine Hives Medium 09/07/2024 Guaifenesin Hives 06/17/2023 Medications furosemide (LASIX) 20 mg tablet Take 1 tablet (20 mg total) by mouth daily. 09/19/2024 6 Active spironolactone (ALDACTONE) 25 mg tablet Take 1 tablet (25 mg total) by mouth. 09/09/2024 6 Active valsartan (DIOVAN) 40 mg tablet Take 1 tablet (40 mg total) by mouth. 09/09/2024 6 Active carvediloL (COREG) 6.25 mg tablet Take 1 tablet (6.25 mg total) by mouth in the morning and 1 tablet (6.25 mg total) in the evening. Take with meals. Not taking yet. 09/20/2024 6 Active Active Problems Problem Noted Date Diagnosed Date Elevated liver enzymes 09/20/2024 Calculus of gallbladder with out cholecystitis without obstruction 09/20/2024 Heart failure with reduced e jection fraction (HFrEF, <= 40%) 09/20/2024 Immunizations No known immunizations Family History Medical History Relation Name Comments gi bleed Brother 2 Migraines Father No Known Problems Mother Relation Name Status Comments Brother 1 Alive Brother 2 Daughter Alive Father Mother Alive Sister Alive Social History Tobacco Use Types Packs/Day Years [...] more drinks on one occasion? Never 12/29/2022 Overall Financial Resource Strain (CARDIA) Answe r Date Recorded How hard is it for you to pa y for the very basics like food, housing, medical care, and heating? Not very hard 09/18/2024 PHQ-2 Answer Date Recorded Total Score 0 09/20/2024 PRAPARE - Transportation Answer Date Re corded In the past 12 months, has l ack of transportation kept you from medical appointments or from getting medications? No 08/31 In the past 12 months, has l ack of transportation kept you from meetings, work, or from getting things needed for daily living? No 09/18/2024 Housing Instability Answer Date Recorde d Are you worried or concerned that in the next two months you may not have stable housing that you own, rent or stay in as a part of a household? No 09/18/2024 Childcare Answer Date Recorded Childcare Unknown 02/08/2019 Employment Answer Date Recorded Do you need help finding a [employer] [facility] career center and/or a training program? No 09/20/2024 Hunger Screening Answer Date Recorded Within the past 12 months we worried whether our food would run out before we got money to buy more. Never True 09/18/2024 Within the past 12 months th e food we bought just didn't last and we didn't have money to get more. Never True 09/18/2024 Comments Unknown Sex and Gender Information Value Date Recorded Sex Assigned at Not on file Legal Sex Female 12:10 PM EDT Gender Identity Not on file Sexual Orientation Not on file Last Filed Vital Signs Vital Sign Reading Time Taken Comments Blood Pressure 104/70 09/20/2024 11:43 AM EST Pulse 95 09/20/2024 11:43 AM EST Temperature 36.4 C (97.6 F) 09/20/2024 11:43 AM EST Respiratory Rate 18 09/20/2024 11:43 AM EST Oxygen Saturation 99% 09/20/2024 11:43 AM EST Inhaled Oxygen Concentration - - Weight 59.2 kg (130 lb 9.6 oz) 09/20/2024 11:43 AM EST Height 152.8 cm (5' 0.16 ) 09/20/2024 11:[address] Body Mass Index 25.37 09/20/2024 11:43 AM EST Plan of Treatment Health Maintenance Due Date Last Done Comments Adult BMI Follow Up Plan 12/16/1979 DTaP,Tdap and Td Vaccines (1 - Tdap) 1980 Pap Smear 1982 Mammogram 2001 Colon Cancer Screening 3 Year Cologuard 2006 Zoster (Shingles) Vaccine (1 of 2) 12/16/2011 Influenza Vaccine 04/30/2025 Adult BMI Screening 09/20/2025 09/20/2024 Depression Screening 09/20/2025 09/20/2024 Tobacco Screening 09/20/2025 09/20/2024 Medical Devices Not on file Care Teams Core Maker Relationship Specialty Start Date End Date Malcolm Metcalf DO [address] [facility], [place] [address] PCP - General Family Medicine 12/28/22
--- OUTSIDE RECORDS SUMMARY | 2025-01-30 10:07 | XMS_ITS | CCD ---
Author Organization [facility] Inform ion Partnership [facility] Care Team Providers Care Director Of Billing Name Role Phone Bernice Dash Unavailable DR APOLONIA GROVE Primary Care Unavailable RAUL ELIAS Attending Unavailable RAUL ELIAS Consulting Unavailable RAUL ELIAS Admitting Unavailable SAUNDRA ROA Consulting Unavailable Malcolm Metcalf DO Primary Care Provider MALCOLM METCALF Attending Unavailable DIXON, MALCOLM Sanford Referring Unavailable DIXON, MALCOLM Sanford Primary Care Unavailable MALCOLM METCALF Attending Unavailable MALCOLM METCALF Referring Unavailable DIXON, MALCOLM Sanford Primary Care Unavailable SHAIKH OLIVERA Referring Unavailable RAKAN MCKEON Admitting Unavailable IRIS SAINZ Attending Unavailable MEDHAT MOYER Referring Unavailable ZAHIDA RIVERA Referring Unavailable AMERICA GEORGE Attending Unavailable AMERICA GEORGE Attending Unavailable Allergies Allergy Classification Reported Allergen(s) Allergy Type Date of Onset Reaction(s) Facility (6 sources) Clarithromycin; Translations: [CLARITHROMYCIN] [facility] (1 source) Robitussin Cold/Congestion Drug allergy [employer] Other (1 source) Clarithromycin Drug Allergy [facility] Repository (3 sources) Codeine; Translations: [CODEINE] Drug Allergy 5 [facility] [employer] [facility] (4 sources) guaiFENesin; Translations: [GUAIFENESIN] Drug Allergy 3 [facility] Work Phone: Medications Current Medications Medication Drug Class(es) Dates Sig (Normalized) Sig (Original) carvedilol 6.25 mg oral tablet (3 sources) alpha-Adrenergic Carla, beta-Adrenergic Carla Start: 09-19-2024 End: 09-20-2025 take 1 tablet by mouth in the morning, then take 1 tablet by mouth at mealtime carvediloL (COREG) 6.25 mg tablet Take 1 tablet (6.25 mg total) by mouth in the morning and 1 tablet (6.25 mg total) in the evening. Take with meals. Not taking yet. 09/20/2024 09/20/2025 Active Start: 09-08-2024 End: 09-20-2024 carvediloL (COREG) 3.125 mg tablet Take 1 tablet (3.125 mg total) by mouth. 09/08/2024 09/20/2024 Discontinued (Dose adjustment) furosemide 20 mg oral tablet (1 source) Loop Diuretic Start: 09-19-2024 End: 09-14-2025 take 1 tablet by mouth once daily furosemide (LASIX) 20 mg tablet Take 1 tablet (20 mg total) by mouth daily. 09/19/2024 09/14/2025 Active predniSONE 20 mg oral tablet (2 sources) Start: 10-05-2023 End: 10-10-2023 take 1 tablet by mouth in the morning, then take 1 tablet by mouth at bedtime predniSONE (DELTASONE) 20 mg tablet Take 1 tablet (20 mg total) by mouth in the morning and 1 tablet (20 mg total) before bedtime. Do all this for 5 days. 10 tablet 0 10/05/2023 10/10/2023 Active spironolactone 25 mg oral tablet (1 source) Aldosterone Antagonist Start: 09-09-2024 End: 09-14-2025 spironolactone (ALDACTONE) 25 mg tablet Take 1 tablet (25 mg total) by mouth. 09/09/2024 09/14/2025 Active valsartan 40 mg oral tablet (1 source) Angiotensin 2 Receptor Carla Start: 09-09-2024 End: 09-14-2025 valsartan (DIOVAN) 40 mg tablet Take 1 tablet (40 mg total) by mouth. 09/09/2024 09/14/2025 Active Completed/Discontinued Medications Medication Drug Class(es) Dates Sig (Normalized) Sig (Original) [id number] 200 actuat albuterol 0.09 mg/actuat metered dose inhaler (3 sources) beta2-Adrenergic Agonist Start: 06-17-2023 End: 09-20-2024 take 2 puff(s) by inhalation every six hours as needed for wheezing albuterol (PROVENTIL HFA;VENTOLIN HFA) 90 mcg/actuation inhaler Indications: Mild intermittent reactive airway disease without complication Inhale 2 puffs every 6 (six) hours as needed for wheezing. 18 g 1 06/17/2023 09/20/2024 Discontinued (Therapy completed) benzonatate 200 mg oral capsule (1 source) Non-narcotic Antitussive Start: 06-17-2023 End: 10-05-2023 take 1 capsule by mouth three times daily as needed for cough benzonatate (TESSALON PERLES) 200 mg capsule Take 1 capsule (200 mg total) by mouth 3 (three) times a day as needed for cough. 20 capsule 0 06/17/2023 10/05/2023 Discontinued (Ineffective) omeprazole 20 mg delayed release oral capsule (3 sources) Proton Pump Inhibitor Start: 07-29-2023 End: 09-20-2024 take 1 capsule by mouth in the morning omeprazole (PriLOSEC) 20 mg capsule Take 1 capsule (20 mg total) by mouth in the morning. 30 capsule 1 07/29/2023 09/20/2024 Discontinued (Therapy completed) oseltamivir 75 mg oral capsule (3 sources) Neuraminidase Inhibitor Start: 10-05-2023 End: 09-20-2024 take 1 capsule by mouth in the morning, then take 1 capsule by mouth at bedtime oseltamivir (TAMIFLU) 75 mg capsule Indications: Influenza A Take 1 capsule (75 mg total) by mouth in the morning and 1 capsule (75 mg total) before bedtime. 10 capsule 10/05/2023 09/20/2024 Discontinued (Therapy completed) Problems Active Problems Problem Classification Problem Date Documented Da te Episodic/Chronic Acute bronchitis (1 source) Acute bronchitis, unspecified; Translations: [ACUTE BRONCHITIS UNSPECIFIED] Onset: 12-28-2022 Episodic Biliary tract disease (2 sources) Cholelithiasis without obstruction; Translations: [Calculus of gallbladder without cholecystitis without obstruction] Onset: 09-20-2024 09-20-2024 Episodic Congestive heart failure; nonhypertensive (12 sources) Heart failure; Translations: [Heart failure, unspecified] Onset: 09-07-2024 09-20-2024 Chronic Other liver diseases (2 sources) Elevated liver enzymes level; Translations: [Abnormal levels of other serum enzymes] Onset: 09-20-2024 09-20-2024 Episodic Other upper respiratory disease (1 source) Allergic rhinitis due to pollen; Translations: [Allergic rhinitis due to pollen] Chronic Other upper respiratory disease (1 source) Allergic rhinitis due to pollen Chronic Other upper respiratory infections (1 source) Sinusitis Onset: 10-05-2023 Chronic Other upper respiratory infections (3 sources) Acute pharyngitis, unspecified; Translations: [Acute upper respiratory infection, unspecified] Onset: 12-28-2022 Episodic Unclassified (2 sources) COUGH, UNSPECIFIED; Translations: [COUGH, UNSPECIFIED] Onset: 12-28-2022 Unclassified (1 source) CONTACT W/AND (SUSP) EXPOS COVID-19; Translations: [CONTACT W/AND (SUSP) EXPOS COVID-19] Onset: 12-28-2022 Unclassified (1 source) pain in side from coughing Onset: 09-20-2024 Unclassified (1 source) Cough, unspecified; Translations: [Cough, unspecified] Onset: 10-05-2023 Past or Other Problems Problem Classification Problem Date Documented Da te Episodic/Chronic Headache; including migraine (1 source) Headache Onset: 10-05-2023 Episodic Influenza (2 sources) Influenza due to other identified influenza virus with other respiratory manifestations; Translations: [Influenza due to Influenza A virus] Onset: 10-05-2023 10-05-2023 Episodic Mood disorders (3 sources) Mood disorders Onset: 10-05-2023 Resolved: 09-20-2024 09-20-2024 Other lower respiratory disease (1 source) Cough; Translations: [Cough, unspecified type] 10-05-2023 Episodic Unclassified (1 source) COUGH, UNSPECIFIED; Translations: [COUGH, UNSPECIFIED] Onset: 12-25-2022 Results Test Name Value Interpretation Reference Range Facility 36on 12-11-2024 36 Regarding echo resul t from 11/16/2024: MD Molly Lea MA Ejection fraction has improved but it still at the level where she needs ICD. Please refer her to EP for AICD. Also I suggest to change valsartan to Entresto 24/26 mg twice daily and check BMP in 1 week. Patient here now for follow up with Dr. George. She will discuss with patient. [facility] Office Visiton 12-11-2024 Follow-up visit [id number] Jo Ann Lobo 1960 F Date Provider Department Center 12/11/2024 AMERICA KNOWLES Family History Problem Relation Age of Onset No Known Problems Mother No Known Problems Father Family Status - Relation Status Age at Mother Alive Father Sister Alive Brother Alive Level of Service:03268 [place] OFFICE/OUTPATIENT ESTABLISHED MOD MDM 30 MIN Reason for Visit and Comments: Follow-up [083779] - Follow up with Echo Congestive Heart Failure [127] Cardiomyopathy [104] - [facility] Orders Onlyon 12-09-2024 Orders Only [id number] Jo Ann Lobo 1960 Date Provider Department Center 12/09/2024 [id number] CANELA Family History Problem Relation Age of Onset No Known Problems Mother No Known Problems Father Family Status - Relation Status Age at Mother Alive Father Sister Alive Brother Alive [facility] Follow-Upon 09-19-2024 Follow-Up [id number] MauroJo Ann M 1960 F Date Provider Department Center 09/19/2024 AMERICA KNOWLES Family History Problem Relation Age of Onset No Known Problems Mother No Known Problems Father Family Status - Relation Status Age at Mother Father Level of Service:10130 [place] OFFICE/OUTPATIENT ESTABLISHED MOD MDM 30 MIN Reason for Visit and Comments: Congestive Heart Failure [127] - Follow up [facility]. Cardiomyopathy [104] - She is not taking aspirin or atorvastatin. pericardial effusion [Other] - Denies SOB and chest pain. Abnormal Potassium [586] - Denies palpitations and lightheadedness. [facility] 36on 09-11-2024 36 Discharge date: 09/08/24 Call date: 09/11/24 Spoke with: patient HF Follow-up date: 09/19/24 Med reconciliation completed: pt declined Questions/Concerns: Pt declined to review home meds but stated she received them prior to discharge. Pt denied any SOB, CP or edema. Pt is aware of her follow up appt and has transportation to this appt. Pt denied any questions or concerns at this time. Normal [facility] Documentationon 09-11-2024 Documentation [id number] Jo Ann Lobo 1960 F Date Provider Department Center 09/11/2024 [id number], [facility] MA HeartVAS No family history on file Reason for Visit and Comments: HF inpatient satisfaction survey sent. [Other] [facility] Telephoneon 09-11-2024 Telephone [id number] Pam Loboabel 1960 Date Provider Department [place] 09/11/2024 [id number], [facility] MA HeartVAS No family history on file Reason for Visit and Comments: HF post discharge call. [Other] [facility] 36on 09-09-2024 36 Attempted call back but no answer. [facility] Telephoneon 09-09-2024 Telephone [id number] Pam Loboabel 1960 Date Provider Department Center 09/09/2024 SHAN ROMAN [facility] Medical C No family history on file Reason for Visit and Comments: post discharge call back [Other] Normal [facility] BASIC METABOLIC PANELon 08-30 Anion gap [Moles/Vol] 13 mmol/L Normal 7-20 [facility] Comment on above: Performed By: #### L AB15 ####[facility] HOSPITAL LAB (BEAKER)[address] [place] [address] Calcium [Mass/Vol] 9.4 mg/dL Normal 8.6-10.3 [facility] Comment on above: Performed By: #### L AB15 ####[facility] LAB (BEAKER)[address] [place] [address] Chloride [Moles/Vol] 93 mmol/L Low 98-107 [facility] Comment on above: Performed By: #### L AB15 ####[facility] (BEAKER)[address] [place] [address] CO2 [Moles/Vol] 29 mmol/L Normal 21-31 [facility] Comment on above: Performed By: #### L AB15 ####[facility] (BEAKER)[address] [place] [address] Creatinine [Mass/Vol] 0.82 mg/dL Normal 0.60-1.20 [facility] Comment on above: Performed By: #### L AB15 ####[facility] [place] [address] GLOMERULAR FILTRATION RATE ML/MIN/1.73 SQ M.PREDICTED 80.8 mL/min/1.73m*2 Normal >60.0 [facility] Comment on above: Result Comment: The [facility]???s estimated glomerular filtration rate (eGFR) will no longer include consideration of race in its calculation. The National Kidney Foundation???s eGFR Task Force developed new recommendations for the estimation of the glomerular filtration rate in the [place] They recommend immediate implementation of the new equation refit without the race variable in all laboratories because the calculation does not include race. In addition to not including race in the calculation and reporting, it included diversity in its development, and has acceptable performance characteristics and potential consequences that do not disproportionately affect any one group of individuals. Performed By: #### L AB15 ####[facility] (BEAKER)[address] [place] [address] Glucose [Mass/Vol] 127 mg/dL High 70-100 [facility] Comment on above: Performed By: #### L AB15 ####[facility] (BEAKER)[address] [place] [address] Potassium [Moles/Vol] 3.4 mmol/L Low 3.5-5.1 [facility] Comment on above: Performed By: #### L AB15 ####[facility] (BEAKER)[address] [place] [address] Sodium [Moles/Vol] 132 mmol/L Low 136-145 [facility] Comment on above: Performed By: #### L AB15 ####[facility] (BEAKER)[address] [place] [address] Urea nitrogen [Mass/Vol] 21 mg/dL Normal 7-25 [facility] Comment on above: Performed By: #### L AB15 ####[facility] (BEAKER)[address] [place] [address] UREA NITROGEN/CREATININ E (MASS RATIO) IN SER/PLAS 25.6 Normal [facility] Comment on above: Performed By: #### L AB15 ####[facility] (JOAN)[address] [place] [address] CONSULTon 09-08-2024 CONSULT discharge planning: to return Home Patient came to this admission 09/07/2024 from Home with spouse; H&P stating presented to [facility] as a transfer from [facility] where she initially presented complaining of shortness of breath over the last 2 weeks - no OT or PT evals ordered at this time - LDAs tab not listing any wounds at this time - MAR not seeming to indicate any IV medications continuing past discharge at this time - oxygen therapy flowsheet documenting Patient on Room Air at this time - follow up with [facility] on AVS Normal [facility] CONSULT Adult Nutrition Assessment: Name: Jo Ann Lobo Date: 1960 Date of Visit: 09/08/24 Admission Dx: Heart failure (CMS/[facility]) [I50.9] Reason for assessment: MD referral - new CHF Information obtained from: patient, family, and medical record History reviewed. No pertinent past medical history. Current Medications: carvedilol, 3.125 mg, oral, BID with meals furosemide, 40 mg, intravenous, Daily heparin (porcine), 5,000 Units, subcutaneous, BID Labs: 0 Lab Value Date/Time BUN 21 09/08/2024 0835 CREATININE 0.82 09/08/2024 0835 NA 132 (L) 09/08/2024 0835 K 3.4 (L) 09/08/2024 0835 PHOS 4.8 09/07/2024 0629 MG 2.2 09/08/2024 0835 HGB 14.9 09/07/2024 0629 WBC 8.26 09/07/2024 0629 Allergies: Allergies Allergen Reactions Clarithromycin Hives Codeine Hives Nutrition Problems: Swallowing Assessment: Denies chew/swallow difficulties Abdominal Assessment: Was having RUQ pain before admit, since resolved. Last BM 09/06. Denies N/V. I/O: Net fluid: +0.1 L since admit Appetite: Good Cognition: A&O x4 Skin Integrity: intact Other Factors: Abdominal ultrasound of right upper quadrant showed diffuse hepatic steatosis, probable cholelithiasis. New CHF, EF 15-20%, cardiac catheterization 09/07/24. OP follow up for possible ICD. Nutrition Data/Clinical Indicators of Nutrition Status: Height: 147.3 cm (4' 10 ) Weight: 60.3 kg (133 lb) BMI (Calculated): 27.8 Wt Readings from Last 10 Encounters: 09/08/24 60.3 kg (133 lb) standing scale 09/07/24 59.3 kg admit standing scale IBW: ~45.5 kg (pt under 5 ) UBW: ~130 lbs per pt report Weight change: No weight history; pt reports some weight loss since admit, Epic history shows 1 kg increase in 1 day. Nutrition Assessment: Pt reports good appetite now and [employer]. Eats 3 meals/day and cooks at home. She does typically add salt to foods, eats canned and frozen meals a few times a week, ramen noodles a few times a week, likes to snack on pretzels. Said she got some education at [facility] before being transferred to [facility] but otherwise unfamiliar with heart healthy diet. Dietary Orders (From admission, onward) Start Ordered 09/07/24 1410 Regular Diet HF/Cirrhosis/CKD/ESRD (2gm NA); 240ml/tray Diet effective now Question Answer Comment Room Service? Yes Sodium restriction: HF/Cirrhosis/CKD/ESRD (2gm NA) Fluid restriction total / 24h: 240ml/tray 09/07/24 1409 Meal Intakes: 75-100% Nutrition Risk: Low Malnutrition Assessment: Per Registered Dietitian assessment and evaluation, patient does not currently meet criteria OR there is not enough information to support the diagnosis of malnutrition per the clinical criteria set by the Academy of Nutrition and Dietetics (AND) and the [place] Society of Enteral and Parenteral Nutrition (ASPEN). Nutrition Education: Diet literature: Heart Failure Nutrition Therapy from Nutrition Care Manual (explained CHF-diet relationship, discussed and reviewed reading nutrition labels, recommended daily sodium intake of no more than 2,000 mg/d (or 1~ tsp salt/d), reviewed and encouraged flavoring alternatives to salt, explained difference between saturated fat vs unsaturated fat and identified sources of each with recommendation to limit saturated fat intakes, recommended adequate intake of fruits/vegetables at each meal and for snacks, encouraged choosing lean proteins, discussed different cooking methods (baking vs frying), and encouraged avoiding or limiting salty snacks/processed foods/frozen foods ) Expected compliance/patient understanding: Good, patient new to heart healthy diet, asked appropriate questions, supportive, endorsed intent to make changes Teach back method: Yes Time spent: [address] name and contact information given if further questions. Treatment Plan: Continue 2gm Na diet Monitor intakes Add peanut butter and jelly sandwich in the afternoon - pt wants more choices Monitor weight - standing scale as able Goals: Adequate po intakes (kcals and protein); >75% meals Adherence/tolerance to snacks; >75% snacks Understanding of nutrition education/adherence to diet recommendations No significant unintentional wt loss BG control Nutrition-related labs (magnesium, phosphorus, BMP) wnl Pt stated goals were to cut out using salt, switch from canned vegetables to frozen and limit ramen noodles to 1x/week To reach the Clinical Dietitian, please utilize [facility] chat Wednesday-Wednesday from 8AM-4PM or call extension [phone]. For weekends (Wednesday-Wednesday) and holidays, the Clinical Dietitian can be reached via pager ([phone]) from 9AM-3PM. The Clinical Nutrition Department is unable to respond to [facility] chat messages on Sundays and hols. Normal [facility] LIPID PANELon 09-08-2024 CHOL/HDL 10.2 mg/dL Normal [facility] Comment on above: Performed By: #### L AB16 #### [facility] (BEAKER) [address] [facility] [place] [address] Cholesterol [Mass/Vol] 306 mg/dL High 120-200 [facility] Comment on above: Performed By: #### L AB16 #### [facility] [address] [place] [address] Magnesium [Mass/Vol] 232 mg/dL High 40-149 [facility] Comment on above: Result Comment: TRIG LYCERIDE REFERENCE RANGE: 20 YEARS AND OLDER CARDIOVASCULAR RISK LESS THAN 150 mg/dL LOW RISK 150 TO 199 mg/dL BORDERLINE RISK 200 mg/dL AND GREATER HIGH RISK Performed By: #### L AB16 #### [facility] ([facility]) [address] [place] [address] Magnesium [Mass/Vol] 230 mg/dL High 0-160 [facility] Comment on above: Performed By: #### L AB16 #### [facility] ([facility]) [address] [place] [address] Magnesium [Mass/Vol] 30 mg/dL Normal 23-92 [facility] Comment on above: Performed By: #### L AB16 #### [facility] ([facility]) [address] [place] [address] NON HDL CHOL. (LDL+VLDL) 276 Normal [facility] Comment on above: Performed By: #### L AB16 #### [facility] [address] [place] [address] TOTAL VLDL-C 46 mg/dL High 0-40 [facility] Comment on above: Performed By: #### L AB16 #### [facility] ([facility]) [address] [place] [address] MAGNESIUMon 09-08-2024 Magnesium [Mass/Vol] 2.2 mg/dL Normal 1.9-2.7 [facility] Comment on above: Performed By: #### L AB16 #### [facility] [address] [place] [address] NURSNOTEon 09-08-2024 NURSNOTE [employer] reviewed AVS and discharge instructions with pt and at bedside, imeds to bring meds to bedside, no questions pt IV out and ready for discharge. [facility] 30on 09-07-2024 30 The patient is Moderately Stable - Low risk of patient condition declining or worsening The patient's goals for the shift include Rest, comfort The clinical goals for the shift include VSS and Cath checks [facility] 30 Daily Case Managemen t Update Multidisciplinary rounds have been completed. Barriers to Discharge: Patient is a transfer from [place], and underwent a cardiac cath today with cardiology. Discharge dispo: pending clinical course, Patient is from home with goal to return home. With patient consent, [employer] Operator did reach out to Financial counselor. Diet: Dietary Orders (From admission, onward) Start Ordered 09/07/24 1410 Regular Diet HF/Cirrhosis/CKD/ESRD (2gm NA); 240ml/tray Diet effective now Question Answer Comment Room Service? Yes Sodium restriction: HF/Cirrhosis/CKD/ESRD (2gm NA) Fluid restriction total / 24h: 240ml/tray 09/07/24 1409 Physician Expected Discharge Date: 09/09/2024 Discharge Delays: PT Six Click Score: 24 OT Six Click Score: PT Recommendations: OT Recommendations: New Consults: Ancillary Consults (From admission, onward) Start Ordered 09/07/24 0900 Inpatient consult to Social Work Once Provider: (Not yet assigned) Question Answer Comment Select all services needed for the patient Other Other: CHF 09/07/24 0900 09/07/24 0900 Consult to Nutrition Services Once Provider: (Not yet assigned) Question: Reason for Consult? Answer: CHF 09/07/24 0900 09/07/24 0842 Inpatient consult to Social Work Once Provider: (Not yet assigned) Question Answer Comment Select all services needed for the patient Other Other: Heart Failure 09/07/24 0841 09/07/24 0842 Consult to Nutrition Services Once Provider: (Not yet assigned) Question: Reason for Consult? Answer: Heart Failure 09/07/24 0841 [facility] 30 The patient is Moderately Stable - Low risk of patient condition declining or worsening The patient's goals for the shift include get answers The clinical goals for the shift include heart cath with stable vitals Over the shift, the patient did not make progress toward the following goals. Barriers to progression include hospital routine and delay in inpatient procedures. Recommendations to address these barriers include communicate and plan care for pt with pt and other staff Problem: Pain - Adult Goal: Verbalizes/displays adequate comfort level or baseline comfort level Outcome: Progressing . Normal [facility] 30 The patient is Moderately Stable - Low risk of patient condition declining or worsening The patient's goals for the shift include rest, comfort The clinical goals for the shift include VSS Normal [facility] [facility] ANESon 09-07-2024 ANES - Attestation signed by Anastasia iWlson MD at 09/07/2024 1:09 PM Agree with patient note as documented. Anastasia Wilson MD Patient: Jo Ann Lobo Procedure Information Date/Time: 09/07/24 1254 Procedures: Coronary angiography Right heart cath Location: [facility] ST[facility]ECT[facility] 3 / [facility] (Cath) Providers: Medhat Moyer MD Clinical information reviewed: Tobacco Allergies Meds Med Hx Surg Hx Fam Hx Soc Hx Physical Exam Airway Mallampati: II TM distance: <3 FB Cardiovascular Rhythm: regular Rate: normal Dental Pulmonary Abdominal Anesthesia Plan ASA 3 other (Conscious ) Anesthetic plan and risks discussed with patient. Use of blood products discussed with patient who consented to blood products. Plan discussed with attending. Additional Equipment Requests Normal [facility] APTTon 09-07-2024 ACTIVATED PARTIAL THROMBOPLASTIN TIME IN PPP BY COAGULATION ASSAY 28.3 Seconds Normal 25.0-35.0 [facility] Comment on above: Result Comment: Clin ical significance of the APTT is questionable in the presence of heparin. Performed By: #### L [id number] #### [facility] ([facility]) [address] [place] [address] B-TYPE NATRIURETIC PEPTIDEon 09-07-2024 Natriuretic peptide B (Bld) [Mass/Vol] 250 pg/mL High 0-100 [facility] Comment on above: Performed By: #### L [id number] #### [facility] ([facility]) [address] [place] [address] CBC WITH AUTO DIFFERENTIALon 09-07-2024 Basophils (Bld) [#/Vol] 0.09 10*3/uL Normal 0.00-0.20 [facility] Comment on above: Performed By: #### L [id number] ####[facility] ([facility])[address] [place] [address] Basophils/100 WBC (Bld) 1.1 % High 0.0-1.0 [facility] Comment on above: Performed By: #### L [id number] ####[facility] ([facility])[address] [place] [address] Eosinophils (Bld) [#/Vol] 0.17 10*3/uL Normal 0.00-0.50 [facility] Comment on above: Performed By: #### L [id number] ####[facility] ([facility])[address] [place] [address] Eosinophils/100 WBC (Bld) 2.1 % Normal 0.0-6.0 [facility] Comment on above: Performed By: #### L [id number] ####[facility] ([facility])[address] [place] [address] Erythrocyte distribution width (RBC) [Ratio] 14.2 % Normal 11.5-15.0 [facility] Comment on above: Performed By: #### L [id number] ####[facility] ([facility])[address] [place] [address] ERYTHROCYTE MEAN CORPUSCULAR HEMOGLOBIN CONCENTRATION (G/DL) BY AUTOMATED 33.6 g/dL Normal 32.0-35.0 [facility] Comment on above: Performed By: #### L [id number] ####[facility] [place] [address] Hematocrit (Bld) [Volume fraction] 44.3 % Normal 36.0-48.0 [facility] Comment on above: Performed By: #### L [id number] ####[facility] ([facility])[address] [place] [address] Hemoglobin (Bld) [Mass/Vol] 14.9 g/dL Normal 12.0-15.0 [facility] Comment on above: Performed By: #### L [id number] ####[facility] ([facility])[address] [place] [address] Immature granulocytes (Bld) [#/Vol] 0.05 10*3/uL Normal 0.00-0.20 [facility] Comment on above: Performed By: #### L [id number] ####[facility] ([facility])[address] [place] [address] Immature granulocytes/100 WBC (Bld) 0.6 % Normal 0.0-1.0 [facility] Comment on above: Performed By: #### L [id number] ####[facility] (BEAKER)[address] [place] [address] Lymphocytes (Bld) [#/Vol] 1.66 10*3/uL Normal 1.20-4.00 [facility] Comment on above: Performed By: #### L [id number] ####[facility] [place] [address] Lymphocytes/100 WBC (Bld) 20.1 % Normal 20.0-45.0 [facility] Comment on above: Performed By: #### L [id number] ####[facility] ([facility])[address] [place] [address] MCH (RBC) [Entitic mass] 31.0 pg Normal 27.0-33.0 [facility] Comment on above: Performed By: #### L [id number] ####[facility] (BE[facility]ER)[address] [place] [address] MCV (RBC) [Entitic vol] 92.3 fL Normal 82.0-98.0 [facility] Comment on above: Performed By: #### L [id number] ####[facility] (BE[facility]ER)[address] [place] [address] Monocytes (Bld) [#/Vol] 0.98 10*3/uL Normal 0.10-1.00 [facility] Comment on above: Performed By: #### L [id number] ####[facility] ([facility])[address] [place] [address] Monocytes/100 WBC (Bld) 11.9 % Normal 5.0-12.0 [facility] Comment on above: Performed By: #### L [id number] ####[facility] ([facility])[address] [place] [address] Neutrophils (Bld) [#/Vol] 5.31 10*3/uL Normal 1.60-7.60 [facility] Comment on above: Performed By: #### L [id number] ####[facility] [place] [address] Neutrophils/100 WBC (Bld) 64.2 % Normal 40.0-72.0 [facility] Comment on above: Performed By: #### L [id number] ####[facility] [place] [address] NRBC (PER 100 WBCS) BY AUTOMATED COUNT 0.0 % Normal 0 [facility] Comment on above: Performed By: #### L [id number] ####[facility] (BEAKER)[address] [place] [address] PLATELETS (10*3/UL) IN BLOOD AUTOMATED COUNT 339 10*3/uL Normal 150-400 [facility] Comment on above: Performed By: #### L [id number] ####[facility] ([facility]ER)[address] [place] [address] RBC (Bld) [#/Vol] 4.80 10*6/uL Normal 3.80-5.00 [facility] Comment on above: Performed By: #### L [id number] ####[facility] ([facility])[address] [place] [address] WBC (Bld) [#/Vol] 8.26 10*3/uL Normal 4.00-10.60 [facility] Comment on above: Performed By: #### L [id number] ####[facility] ([facility])[address] [place] [address] COMPREHENSIVE METABOLIC PANE Cristino 09-07-2024 Albumin [Mass/Vol] 4.6 g/dL Normal 3.5-5.7 [facility] Comment on above: Performed By: #### L [id number] #### [facility] ([facility]) [address] [place] [address] ALP [Catalytic activity/Vol] 117 U/L High 34-104 [facility] Comment on above: Performed By: #### L [id number] #### [facility] ([facility]) [address] [place] [address] ALT [Catalytic activity/Vol] 227 U/L High 7-52 [facility] Comment on above: Performed By: #### L [id number] #### [facility] ([facility]) [address] [place] [address] Anion gap [Moles/Vol] 14 mmol/L Normal 7-20 [facility] Comment on above: Performed By: #### L [id number] #### [facility] ([facility]) [address] [place] [address] AST [Catalytic activity/Vol] 97 U/L High 13-39 [facility] Comment on above: Performed By: #### L [id number] #### [facility] ([facility]) [address] [place] [address] Bilirubin [Mass/Vol] 1.1 mg/dL High 0.3-1.0 [facility] Comment on above: Performed By: #### L [id number] #### [facility] ([facility]) [address] [place] [address] Calcium [Mass/Vol] 9.6 mg/dL Normal 8.6-10.3 [facility] Comment on above: Performed By: #### L [id number] #### [facility] ([facility]) [address] [place] [address] Chloride [Moles/Vol] 97 mmol/L Low 98-107 [facility] Comment on above: Performed By: #### L [id number] #### [facility] ([facility]) [address] [place] [address] CO2 [Moles/Vol] 29 mmol/L Normal 21-31 [facility] Comment on above: Performed By: #### L [id number] #### [facility] ([facility]) [address] [place] [address] Creatinine [Mass/Vol] 0.76 mg/dL Normal 0.60-1.20 [facility] Comment on above: Performed By: #### L [id number] #### [facility] ([facility]) [address] [place] [address] GLOMERULAR FILTRATION RATE ML/MIN/1.73 SQ M.PREDICTED 88.5 mL/min/1.73m*2 Normal >60.0 [facility] Comment on above: Result Comment: The [facility]???s estimated glomerular filtration rate (eGFR) will no longer include consideration of race in its calculation. The National Kidney Foundation???s eGFR Task Force developed new recommendations for the estimation of the glomerular filtration rate in the [place] They recommend immediate implementation of the new equation refit without the race variable in all laboratories because the calculation does not include race. In addition to not including race in the calculation and reporting, it included diversity in its development, and has acceptable performance characteristics and potential consequences that do not disproportionately affect any one group of individuals. Performed By: #### L [id number] #### [facility] ([facility]) [address] [place] [address] Glucose [Mass/Vol] 128 mg/dL High 70-100 [facility] Comment on above: Performed By: #### L [id number] #### [facility] ([facility]) [address] [place] [address] Potassium [Moles/Vol] 3.5 mmol/L Normal 3.5-5.1 [facility] Comment on above: Performed By: #### L [id number] #### [facility] ([facility]) [address] [place] [address] Protein [Mass/Vol] 7.9 g/dL Normal 6.0-8.3 [facility] Comment on above: Performed By: #### L [id number] #### [facility] ([facility]) [address] [place] [address] Sodium [Moles/Vol] 136 mmol/L Normal 136-145 [facility] Comment on above: Performed By: #### L [id number] #### [facility] ([facility]) [address] [place] [address] Urea nitrogen [Mass/Vol] 22 mg/dL Normal 7-25 [facility] Comment on above: Performed By: #### L [id number] #### [facility] ([facility]) [address] [place] [address] UREA NITROGEN/CREATININ E (MASS RATIO) IN SER/PLAS 28.9 Normal [facility] Comment on above: Performed By: #### L [id number] #### [facility] ([facility]) [address] [place] [address] CONSULTon 09-07-2024 CONSULT - Attestation signed by Medhat Moyer MD at 09/07/2024 4:59 PM I evaluated discussed and reviewed the patient on rounds with the sustainability communicator. I agree with his assessment and plan as documented in the patient's progress note from today Cardiology Consult Note Reason for Consult: CHF, pericardial effusion HPI: Jo Ann Lobo is a 63 y.o. female with unremarkable past medical history who presented to [facility] as a transfer from [facility] where she initially presented complaining of shortness of breath over the last 2 weeks. Patient reported that she has been having worsening shortness of breath, associated with cough over the last 2 weeks, she endorses orthopnea, no paroxysmal nocturnal dyspnea. Denied smoking, alcohol use, or drug abuse. Underwent CTA chest which was negative for PE, showed small right pleural effusion with small to moderate pericardial effusion. She also underwent transthoracic echocardiogram which showed severely reduced ejection fraction of 25% with moderate pericardial effusion. Cardiology team consulted for further evaluation and management Cardiology ROS: Review of Systems Constitutional: Negative for activity change and appetite change. Respiratory: Positive for cough and shortness of breath. Negative for chest tightness and wheezing. Cardiovascular: Negative for chest pain, palpitations and leg swelling. Gastrointestinal: Negative for abdominal pain, nausea and vomiting. Neurological: Negative for dizziness and light-headedness. Past Medical History She has no past medical history on file. Surgical History She has no past surgical history on file. Social History She reports that she has never smoked. She has never used smokeless tobacco. No history on file for alcohol use and drug use. Family History No family history on file. Allergies Clarithromycin and Codeine Medications No current outpatient medications No medications prior to admission. Last Recorded Vitals Patient Vitals for the past 24 hrs: BP Temp Temp src Pulse Resp SpO2 Height Weight 09/07/24 0905 117/78 -- -- 97 22 92 % -- -- 09/07/24 0727 121/78 36.6 ???C (97.9 ???F) Temporal 93 18 95 % -- -- 09/07/24 0621 -- -- -- -- -- -- 1.473 m (4' 10 ) 59.3 kg (130 lb 12.8 oz) 09/07/24 0541 123/71 36.2 ???C (97.2 ???F) Temporal 94 15 96 % -- -- Physical Examination: Physical Exam Constitutional: General: She is not in acute distress. Appearance: Normal appearance. She is not ill-appearing. HENT: Head: Normocephalic and atraumatic. Cardiovascular: Rate and Rhythm: Normal rate and regular rhythm. Heart sounds: Normal heart sounds. No murmur heard. Pulmonary: Breath sounds: Rales present. No wheezing. Abdominal: Palpations: Abdomen is soft. Tenderness: There is no abdominal tenderness. Musculoskeletal: Right lower leg: No edema. Left lower leg: No edema. Skin: General: Skin is warm and dry. Findings: No erythema or rash. Neurological: Mental Status: She is alert and oriented to person, place, and time. Mental status is at baseline. Relevant Lab Results Encounter Date: 09/07/24 Electrocardiogram, 12-lead Result Value Ventricular Rate 92 Atrial Rate 92 FL Interval 168 QRS DURATION 100 QT Interval 422 QTC CALCULATION(BAZETT) 521 P Lincoln 20 R-Lincoln -31 T Wave Lincoln 31 Impression Normal sinus rhythm Possible Left atrial enlargement Left axis deviation Minimal voltage criteria for LVH, may be normal variant ( Alberton product ) T wave abnormality, consider anterolateral ischemia Prolonged QT Abnormal ECG No previous ECGs available Lab Results Component Value Date TROPONINI 0.07 (H) 09/07/2024 No echocardiogram results found for the past 12 months No nuclear medicine results found for the past 12 months Relevant Imaging Results Electrocardiogram, 12-lead Normal sinus rhythm Possible Left atrial enlargement Left axis deviation Minimal voltage criteria for LVH, may be normal variant ( Alberton product ) T wave abnormality, consider anterolateral ischemia Prolonged QT Abnormal ECG No previous ECGs available ASSESSMENT Acute heart failure with reduced ejection fraction, reported EF 20-25% (no official echo report from outside hospital), BNP 250, unclear exact etiology at this time ischemic versus nonischemic Mildly elevated troponin Moderate pericardial effusion suspect this is related to myopericarditis PLAN Given newly reduced EF we will plan for ischemic evaluation with cardiac catheterization. Start on IV Lasix 40 mg twice daily Optimize GDMT as tolerated, agree with Coreg 3.125 mg twice daily Obtain transthoracic echocardiogram Obtain EKG Strict intake and output monitoring Daily weights Further recommendations to follow pos (more content not included)... Normal [facility] ELECTROLYTE PANELon 09-07-19 25 Anion gap [Moles/Vol] 13 mmol/L Normal 7-20 [facility] Comment on above: Performed By: #### L [id number] #### [facility] ([facility]) [address] [place] [address] Chloride [Moles/Vol] 96 mmol/L Low 98-107 [facility] Comment on above: Performed By: #### L [id number] #### [facility] ([facility]) [address] [place] [address] CO2 [Moles/Vol] 32 mmol/L High 21-31 [facility] Comment on above: Performed By: #### L [id number] #### [facility] ([facility]) [address] [place] [address] Potassium [Moles/Vol] 3.7 mmol/L Normal 3.5-5.1 [facility] Comment on above: Performed By: #### L [id number] #### [facility] ([facility]) [address] [place] [address] Sodium [Moles/Vol] 137 mmol/L Normal 136-145 [facility] Comment on above: Performed By: #### L [id number] #### [facility] ([facility]) [address] [place] [address] HEPATITIS PANEL, ACUTEon HEPATITIS A VIRUS IGM AB PRESENCE IN SER/PLAS Non-Reactive Normal Nonreactive [facility] Comment on above: Performed By: #### L [id number] ####[facility] ([facility])[address] [place] [address] HEPATITIS B VIRUS CORE AB (PRESENCE) IN SER/PLAS BY IMM Reactive Critically abnormal Nonreactive [facility] Comment on above: Performed By: #### L [id number] ####[facility] ([facility])[address] [place] [address] HEPATITIS B VIRUS SURFACE AG PRESENCE IN SERUM Non-Reactive Normal Nonreactive [facility] Comment on above: Performed By: #### L [id number] ####[facility] (BEAKER)[address] [place] [address] HEPATITIS C VIRUS AB PRESENCE IN SERUM Non-Reactive Normal Nonreactive [facility] Comment on above: Performed By: #### L [id number] ####[facility] ([facility]ALLIE)[address] [place] [address] HPon 09-07-2024 HP - Attestation signed by Anastasia Wilson MD at 09/07/2024 1:10 PM H and P reviewed. No significant changes. Patient presenting with acute decompensated heart failure. Plan to proceed with cath. Procedure was explained to patient at length and in detail. Risks, benefits, and alternatives were discussed. Patient is informed that risks of this invasive procedure include, but are not limited to, bleeding, hematoma, kidney injury, CVA, arrythmia requiring defibrillation, need for emergent open heart surgery, and . Patient understands these risks and wishes to proceed. Anastasia Wilson MD History Of Present Illness Reason for Consult: CHF, pericardial effusion HPI: Jo Ann Lobo is a 63 y.o. female with unremarkable past medical history who presented to [facility] as a transfer from [facility] where she initially presented complaining of shortness of breath over the last 2 weeks. Patient reported that she has been having worsening shortness of breath, associated with cough over the last 2 weeks, she endorses orthopnea, no paroxysmal nocturnal dyspnea. Denied smoking, alcohol use, or drug abuse. Underwent CTA chest which was negative for PE, showed small right pleural effusion with small to moderate pericardial effusion. She also underwent transthoracic echocardiogram which showed severely reduced ejection fraction of 25% with moderate pericardial effusion. Cardiology team consulted for further evaluation and management Cardiology ROS: Review of Systems Constitutional: Negative for activity change and appetite change. Respiratory: Positive for cough and shortness of breath. Negative for chest tightness and wheezing. Cardiovascular: Negative for chest pain, palpitations and leg swelling. Gastrointestinal: Negative for abdominal pain, nausea and vomiting. Neurological: Negative for dizziness and light-headedness. Past Medical History She has no past medical history on file. Surgical History She has no past surgical history on file. Social History She reports that she has never smoked. She has never used smokeless tobacco. No history on file for alcohol use and drug use. Family History Family History No family history on file. Allergies Clarithromycin and Codeine Medications No current outpatient medications Prescriptions Prior to Admission No medications prior to admission. Last Recorded Vitals Patient Vitals for the past 24 hrs: BP Temp Temp src Pulse Resp SpO2 Height Weight 09/07/24 0905 117/78 -- -- 97 22 92 % -- -- 09/07/24 0727 121/78 36.6 ???C (97.9 ???F) Temporal 93 18 95 % -- -- 09/07/24 0621 -- -- -- -- -- -- 1.473 m (4' 10 ) 59.3 kg (130 lb 12.8 oz) 09/07/24 0541 123/71 36.2 ???C (97.2 ???F) Temporal 94 15 96 % -- -- Physical Examination: Physical Exam Constitutional: General: She is not in acute distress. Appearance: Normal appearance. She is not ill-appearing. HENT: Head: Normocephalic and atraumatic. Cardiovascular: Rate and Rhythm: Normal rate and regular rhythm. Heart sounds: Normal heart sounds. No murmur heard. Pulmonary: Breath sounds: Rales present. No wheezing. Abdominal: Palpations: Abdomen is soft. Tenderness: There is no abdominal tenderness. Musculoskeletal: Right lower leg: No edema. Left lower leg: No edema. Skin: General: Skin is warm and dry. Findings: No erythema or rash. Neurological: Mental Status: She is alert and oriented to person, place, and time. Mental status is at baseline. Relevant Lab Results Encounter Date: 09/07/24 Electrocardiogram, 12-lead Result Value Ventricular Rate 92 Atrial Rate 92 FL Interval 168 QRS DURATION 100 QT Interval 422 QTC CALCULATION(BAZETT) 521 P Lincoln 20 R-Lincoln -31 T Wave Lincoln 31 Impression Normal sinus rhythm Possible Left atrial enlargement Left axis deviation Minimal voltage criteria for LVH, may be normal variant ( Alberton product ) T wave abnormality, consider anterolateral ischemia Prolonged QT Abnormal ECG No previous ECGs available Lab Results Component Value Date TROPONINI 0.07 (H) 09/07/2024 No echocardiogram results found for the past 12 months No nuclear medicine results found for the past 12 months Relevant Imaging Results Electrocardiogram, 12-lead Normal sinus rhythm Possible Left atrial enlargement Left axis deviation Minimal voltage criteria for LVH, may be normal variant ( Alberton product ) T wave abnormality, consider anterolateral ischemia Prolonged QT Abnormal ECG No previous ECGs available ASSESSMENT Acute heart failure with reduced ejection fraction, reported EF 20-25% (no official echo report from outside hospital), BNP 250, unclear exact etiology at this time ischemic versus nonischemic Mildly elevated troponin (more content not included)... Normal [facility] MAGNESIUMon 09-07-2024 Magnesium [Mass/Vol] 2.3 mg/dL Normal 1.9-2.7 [facility] Comment on above: Performed By: #### L [id number] #### [facility] (AKER) [address] [place] [address] Magnesium [Mass/Vol] 2.3 mg/dL Normal 1.9-2.7 [facility] Comment on above: Performed By: #### L [id number] #### [facility] ([facility] [facility] [place] [address] [place] [address] NURSNOTEon 09-07-2024 NURSNOTE Primer Press Operator notified by lab at 12:43 PM that pt Hep B core was reactive with lab check and senior copywriter called to notify feed mill lab technician with and also updated Dr. Mckeon in regards to results. Normal [facility] PHOSPHORUSon 09-07-2024 Magnesium [Mass/Vol] 4.8 mg/dL Normal 2.5-5.0 [facility] Comment on above: Performed By: #### L [id number] #### [facility] ([employer]) [address] [place] [address] PROTIME-INRon 09-07-2024 INR IN PPP BY COAGULATION ASSAY 1.10 Normal 0.90-1.10 [facility] Comment on above: Result Comment: ACCC P RECOMMENDED INR FOR WARFARIN THERAPY CONDITION INR PROPHYLAXIS OF VENOUS THROMBOSIS 2-3 (HIGH-RISK SURGERY) TREATMENT OF VENOUS THROMBOSIS 2-3 TREATMENT OF PULMONARY EMBOLISM 2-3 PREVENTION OF SYSTEMIC EMBOLISM: 2-3 ACUTE MYOCARDIAL INFARCTION TISSUE HEART VALVES VALVULAR HEART DISEASE ATRIAL FIBRILLATION RECURRENT SYSTEMIC EMBOLISM MECHANICAL HEART VALVE 2.5-3.5 FROM: ORAL ANTICOAGULANTS. MECHANISM OF ACTION, CLINICAL EFFECTIVENESS, AND OPTIMAL THERAPEUTIC RANGE. CHEST 1995;108:231S-246S. Performed By: #### L [id number] #### [facility] ([employer]) [address] [place] [address] PROTHROMBIN TIME (PT) IN PPP BY COAGULATION ASSAY 14.2 Seconds Normal 12.3-14.8 [facility] Comment on above: Performed By: #### L [id number] #### [facility] ([employer]) [address] [place] [address] TROPONIN Ion 09-07-2024 Troponin I.cardiac [Mass/Vol] 0.02 ng/mL Normal 0.00-0.04 [facility] Comment on above: Performed By: #### L [id number] #### [facility] ([facility]) [address] [place] [address] Troponin I.cardiac [Mass/Vol] 0.03 ng/mL Normal 0.00-0.04 [facility] Comment on above: Performed By: #### L [id number] #### [facility] ([facility]) [address] [place] [address] Troponin I.cardiac [Mass/Vol] 0.07 ng/mL High 0.00-0.04 [facility] Comment on above: Performed By: #### L [id number] #### [facility] ([facility]) [address] [place] [address] POCT Influenza A/Influenza B /SARS-COV-2 VeritorOrdered By: Katy Vega on 10-05-2023 External Poct Influenza A Antigen Positive [facility] External Poct Influenza B Antigen Negative [facility] SARS-CoV-2 (COVID-19) Ag IA.rapid Ql (Resp) Negative [facility] XR CHEST 2 Von 12-26-2022 XR CHEST 2 V EXAM: XR CHEST 2 V HISTORY: COUGH COMPARISON: None available TECHNIQUE: 2 views chest x-rays frontal and lateral FINDINGS: Mild bilateral perihilar airway wall thickening. No radiographic lung consolidation, large pleural effusions, pneumothorax, or acute bony abnormality. Cardiac size is unremarkable. Calcified plaque thoracic aortic knob. IMPRESSION: Mild bilateral perihilar airway wall thickening reflect sequela of reactive airway inflammation or bronchitis/bronchioli tis in the proper clinical setting. Correlate clinically. Electronically authenticated by: SAUNDRA ROA Date: 2022-12-26 00:14 Normal [facility] Covid-19 PCR (CVDTBH)on 11-29 SARS-CoV-2 (COVID-19) RNA DOTTY+probe Ql (Unsp spec) Not detected Normal NOT DETECTED [facility] Comment on above: Result Comment: This test is not yet approved or cleared by the [place] FDA. When there are no FDA-approved or cleared tests available, and other criteria are met, FDA can make tests available under an emergency access mechanism called an Emergency Use Authorization (EUA). The EUA for this test is supported by the [place] of Health and Human Service's (HHS's) declaration that circumstances exist to justify the emergency use of in vitro diagnostics for the detection and/or diagnosis of the virus that causes COVID-19. This EUA will remain in effect (meaning this test can be used) for the duration of the COVID-19 declaration justifying emergency of IVDs, unless it is terminated or revoked by FDA (after which the test may no longer be used). When diagnostic testing is negative, the possibility of a false negative should be considered in the context of a patient's recent exposures and the presence of clinical signs and symptoms consistent with SARS-CoV-2. Performed By: #### C VDTBH #### [facility] [address] [place] [address] Dr. Laura Kidd GROUP A STREP CULTUREon 11-29 S. pyogenes Ag Ql (Unsp spec) Culture Observations: NEGATIVE FOR GROUP A STREPTOCOCCUS. Normal [facility] Comment on above: Performed By: #### G RASTCX, SSCRN #### [facility] [address] [place] [address] Dr. Laura Kidd STREPT SCREENon 12-25-2022 STREP SCREEN A Negative Normal NEGATIVE [facility] Comment on above: Performed By: #### G RASTCX, SSCRN #### [facility] [address] [place] [address] Dr. Laura Kidd SYMPTOMATIC COVID-19 ANTIGEN on 12-25-2022 EUA Statement SEE BELOW Normal [facility] Comment on above: Result Comment: This test has not been FDA cleared or approved, but has been authorized by the FDA under an Emergency Use Authorization (EUA) for use by authorized laboratories certified under CLIA that meet the requirements to perform moderate or high complexity testing. This test has been authorized only for the detection of proteins from SARS-CoV-2, not for any other viruses or pathogens. The emergency use of this test is authorized for the duration of the declaration that circumstances exist justifying the authorization of emergency use of in vitro diagnostic tests for detection and/or diagnosis of Covid-19 under section 564(b)(1) of the Act, 21 U.S.C. 360bbb-3(b)(1), unless the declaration is terminated or authorization is revoked sooner. Performed By: #### C VDAGS #### [facility] [address] [address] [address] Laura Kidd SARS-CoV-2 (COVID-19) RNA DOTTY+probe Ql (Unsp spec) Negative Normal NEGATIVE [facility] Comment on above: Performed By: #### C VDAGS #### [facility] [id number] Laura Kidd Quick Strepon 12-22-2022 S. pyogenes Org specific cx Ql (Throat) Negative [facility] Other Quick St[facility] [employer] Other Vital Signs Date Time Vital Sign Value Performing Clinician Facility 09-20-2024 11:43-0500 Body height 152.8 cm [employer] Work Phone: [employer] 09-20-2024 11:43-0500 Body mass index (BMI) [Ratio] 25.37 kg/m2 [employer] Work Phone: [employer] 09-20-2024 11:43-0500 Body temperature 97.59 [degF] [employer] Work Phone: [employer] 09-20-2024 11:43-0500 Body weight 59.24 kg [employer] Work Phone: [employer] 09-20-2024 11:43-0500 Diastolic blood pressure 70 mm[Hg] [employer] Work Phone: [employer] 09-20-2024 11:43-0500 Heart rate 95 /min [employer] Work Phone: [employer] 09-20-2024 11:43-0500 Respiratory rate 18 /min [employer] Work Phone: [employer] 09-20-2024 11:43-0500 SaO2% (BldA) [Mass fraction] 99 % Malcolm Furlong DO Work Phone: [employer] 09-20-2024 11:43-0500 Systolic blood pressure 104 mm[Hg] Malcolm Furlong DO [facility] 10-05-2023 15:15-0500 Body height 152.8 cm Malcolm Furlong DO Work Phone: [facility] 10-05-2023 15:15-0500 Body temperature 99.3 [degF] Malcolm Furlong DO Work Phone: [employer] 10-05-2023 15:15-0500 Diastolic blood pressure 60 mm[Hg] Malcolm Furlong DO Work Phone: [facility] 10-05-2023 15:15-0500 Heart rate 103 /min Malcolm Furlong DO Work Phone: [facility] 10-05-2023 15:15-0500 SaO2% (BldA) [Mass fraction] 98 % Malcolm Furlong DO Work Phone: [employer] 10-05-2023 15:15-0500 Systolic blood pressure 118 mm[Hg] Malcolm Furlong DO Work Phone: [employer] 12-22-2022 18:50-0400 Body height 151.13 cm Bernice Dash Other [employer] [facility] [employer] Other 12-22-2022 18:50-0400 Body mass index (BMI) [Ratio] 23.83 kg/m2 Bernice Dash Other [facility] Other 12-22-2022 18:50-0400 Body temperature 97.6 [degF] Bernice Dash Other [facility] [employer] Other 12-22-2022 18:50-0400 Body weight 54.43 kg Bernice Dash Other [facility] [employer] Other 12-22-2022 18:50-0400 Respiratory rate 18 /min Bernice Dash Other [facility] [employer] Other 12-22-2022 18:50-0400 SaO2% (BldA) [Mass fraction] 97 % Bernice Dash Other [employer] Other Encounters Encounter Date Encounter Type Care Provider Facility Start: 12-11-2024 End: 12-11-2024 ambulatory [facility] Start: 09-20-2024 End: 09-20-2024 [facility] Start: 09-20-2024 End: 09-20-2024 Office outpatient visit 25 minutes [facility]: [facility] Comment on above: Heart failure, unspe cified HF chronicity, unspecified heart failure type (CMS-HCC) (Primary Dx); Heart failure with reduced ejection fraction (HFrEF, <= 40%) (CMS-HCC); Calculus of gallbladder without cholecystitis without obstruction; Elevated liver enzymes Start: 09-19-2024 End: 09-19-2024 ambulatory [facility] Start: 09-07-2024 Evaluation and manag ement of inpatient [facility] Start: 09-07-2024 Evaluation and manag ement of inpatient [facility] Start: 09-07-2024 End: 09-08-2024 Evaluation and management of inpatient [facility] Start: 10-05-2023 End: 10-05-2023 Office outpatient visit 15 minutes Malcolm Claribel Mallory DO Work Phone: [facility] Comment on above: Influenza A (Primary Dx); Cough, unspecified type Start: 10-05-2023 End: 10-05-2023 ambulatory MALCOLM METCALF [facility] Start: 12-25-2022 End: 12-26-[address] APOLONIA GROVE Facility:[facility] Start: 12-22-2022 End: 12-22-2022 ambulatory Bernice Dash Other [employer] Other Start: 12-22-2022 Office outpatient ne w 30 minutes Bernice Dash [facility] Procedures Date Procedure Procedure Detail Performing Clinician Start: 09-20-2024 Follow-up visit Follow-up MALCOLM METCALF Start: 09-20-2024 Adult depression screening assessment Malcolm Metcalf DO Work Phone: Start: 10-05-2023 POCT INFLUENZA A/INFLUENZA B/SARS-COV-2 VERITOR Malcolm Metcalf DO Work Phone: Start: 10-05-2023 Adult depression screening assessment Malcolm Metcalf DO Work Phone: Plan of Treatment Date Care Activity Detail Author Start: 09-20-2025 Adult BMI Screening Adult BMI Screening [facility] Start: 09-20-2025 Depression Screening Depression Screening [facility] Start: 09-20-2025 Tobacco Screening Tobacco Screening [facility] Start: 07-29-2024 Adult BMI Screening Adult BMI Screening [facility] Start: 06-17-2024 Depression Screening Depression Screening [facility] Start: 06-17-2024 Tobacco Screening Tobacco Screening [facility] Start: 04-30-2024 Influenza vaccination Influenza Vaccine [facility] Start: 04-30-2023 Influenza vaccination Influenza Vaccine [facility] Start: 12-16-2011 Administration of varicella zoster vaccine Zoster (Shingles) Vaccine (1 of 2) [facility] Start: 2006 Screening for malignant neoplasm of colon Colon Cancer Screening 3 Year Cologuard [facility] Start: 2001 Screening for malignant neoplasm of breast Mammogram [facility] Start: 1982 Screening for malignant neoplasm of cervix Pap Smear [facility] Start: 1980 DTaP,Tdap and Td Vaccines (1 - Tdap) DTaP,Tdap and Td Vaccines (1 - Tdap) [facility] Start: 12-16-1979 Adult BMI Follow Up Plan Adult BMI Follow Up Plan [facility] Payers Date Payer Category Payer Unknown [employer] OUT OF STATE PPO/TRUST [id number] 2020-Present [phone] [address] [place] [address] [id number] 1960 Unknown [id number] 1960 Unknown [id number] 1960 Unknown [id number] 1958 [facility] [id number] Social History Date Type Detail Facility Unknown if ever smoked [employer] [employer] Other Start: 12-29-2022 End: 10-05-2023 Sex Assigned At [employer] Other Start: 12-29-2022 Tobacco smoking stat [facility] Never smoked tobacco [facility] Start: 12-29-2022 Tobacco use and exposure Smokeless tobacco non-user [facility] Start: 10-05-2023 End: 09-20-2024 Alcoholic beverage intake Lifetime non-drinker (finding) [facility] Start: 12-29-2022 End: 10-05-2023 History of Social function [facility] How often to you hav e a drink containing alcohol? Never [facility] How many standard drinks containing alcohol do you have on a typical day? Patient does not drink [facility] How hard is it for y ou to pay for the very basics like food, housing, medical care, and heating Not very hard [employer] Start: 1960 Sex assigned at Not on file P DOZ Start: 04-04-2015 Sex Female (finding) [facility] Clinical Notes 12-22-2022 to 12-11-2024 Malcolm Metcalf, DO - 09/20/2024 11:30 AM Oseas Metcalf, DO - 10/05/2023 3:20 PM EST Note Date & Type Note Facility 12-11-2024 Note [place] [facility] Subjective Jo Ann Lobo is a 63 y.o. year old female patient being seen for Congestive Heart Failure , Cardiomyopathy, pericardial effusion , and Abnormal Potassium Patient Active Problem List Diagnosis HFrEF (heart failure with reduced ejection fraction) (CMS/HCC) Pericardial effusion Pleural effusion, bilateral Transaminitis Heart failure (CMS/HCC) Coronary artery disease involving shinnecock coronary artery of shinnecock heart without angina pectoris Mixed hyperlipidemia HPI 12/11/2024 Patient states that she has been doing well. She denies any chest discomfort at rest or with exertion. She denies exertional dyspnea, orthopnea or paroxysmal nocturnal dyspnea. She denies dizziness, syncope or near syncope. She denies palpitations, legs edema or discomfort on exertion. 09/19/2024 The patient is a 63-year-old female who came to [facility] on 09/07/2024 with shortness of breath and cough and her chest CT showed evidence of small to moderate pericardial effusion therefore she was transferred to [facility]. She underwent echocardiographic study which showed severely reduced left ventricular static function with ejection fraction 25% and moderate pericardial effusion. She underwent cardiac catheterization on 09/07/2024 which showed nonobstructive CAD and nonischemic cardiomyopathy with mild elevation of right-sided pressure, wedge pressure 11 millimeter of mercury. Patient is here today with her for follow-up visit. She reports that she has been doing well. She denies any chest pain or shortness of breath at rest or with exertion. She denies orthopnea or paroxysmal nocturnal dyspnea. She denies any palpitations or dizziness or syncope or near syncope. She denies legs edema or leg discomfort on exertion. She showed me her blood pressure log at home and her blood pressure has been in the range of 120-130 over 80s and the heart rate in the 80s She is not taking atorvastatin because of concern about cholesterol medication side effects and the same for aspirin ROS All systems were reviewed and they were negative except for the positive findings noted above in the history Past Medical History: Diagnosis Date Cardiomyopathy (CMS/HCC) CHF (congestive heart failure) (CMS/HCC) Hypokalemia Pericardial effusion Past Surgical History: Procedure Laterality Date CARDIAC CATHETERIZATION TUBAL LIGATION Family History Problem Relation Name Age of Onset No Known Problems Mother No Known Problems Father Social History Tobacco Use Smoking status: Never Smokeless tobacco: Never Substance Use Topics Alcohol use: Not Currently Allergies Allergies Allergen Reactions Clarithromycin Hives Codeine Hives Medications Current Outpatient Medications: aspirin 81 mg EC tablet, Take 81 mg by mouth every other day., Disp: , Rfl: carvedilol (Coreg) 6.25 mg tablet, Take 1 tablet (6.25 mg) by mouth with breakfast and with evening meal., Disp: 180 tablet, Rfl: 3 furosemide (Lasix) 20 mg tablet, Take 1 tablet (20 mg) by mouth in the morning for 360 doses., Disp: 90 tablet, Rfl: 3 spironolactone (Aldactone) 25 mg tablet, Take 1 tablet (25 mg) by mouth once daily as directed., Disp: 90 tablet, Rfl: 3 empagliflozin (Jardiance) 10 mg, Take 1 tablet (10 mg) by mouth in the morning., Disp: 30 tablet, Rfl: 11 sacubitril-valsartan (Entresto) 49-51 mg tablet, Take 1 tablet by mouth two times daily., Disp: 60 tablet, Rfl: 12 Objective Visit Vitals BP (!) 148/91 (BP Location: Left arm, Patient Position: Sitting) Pulse 78 Ht 1.473 m (4' 10 ) Wt 59.4 kg (131 lb) SpO2 98% BMI 27.38 kg/m??? Smoking Status Never BSA 1.56 m??? Physical exam: GENERAL: alert and oriented x3, well developed, in no acute distress. HEAD: atraumatic, normocephalic. EYES: LARRY, EOMI. NECK: trachea midline, no JVD present, no carotid bruits present. CARDIAC: S1, S2 present. RRR. No murmur, rubs, or gallops. RESPIRATORY: CTAB, no increased effort of breathing, no rales, rhonchi, or wheezing. ABDOMEN: soft, nontender, nondistended. EXTREMITIES: no lower extremity edema. No rash/skin discoloration present. NEURO: strength/sensation equal and symmetric in bilateral upper and lower extremities. PSYCH: appropriate mood, affect, and judgement. Recent Labs Lab Results Component Value Date GLUCOSE 127 (H) 09/08/2024 CALCIUM 9.4 09/08/2024 NA 132 (L) 09/08/2024 K 3.4 (L) 09/08/2024 CO2 29 09/08/2024 CL 93 (L) 09/08/2024 BUN 21 09/08/2024 CREATININE 0.82 09/08/2024 Magnesium 2.3 Lab Results Component Value Date WBC 8.26 09/07/2024 HGB 14.9 09/07/2024 HCT 44.3 09/07/2024 MCV 92.3 09/07/2024 PLT 339 09/07/2024 Lab Results Component Value Date CHOL 306 (H) 09/08/2024 Lab Results Component Value Date HDL 30 09/08/2024 Lab Results Component Value Date LDLCALC 230 (H) 09/08/2024 Lab (more content not included)... [facility] 09-20-2024 History of Present illness Narrative Subjective Patient ID: Jo Ann Lobo is a 63 y.o. female. Jo Ann presents today for hospital follow up. She went to the emergency room for shortness a breath and cough. She was found to be in heart failure with pleural and pericardial effusions. She was also noted to have cholelithiasis. She was transferred to [facility] for further care. She had a cardiac catheterization which did not reveal any significant coronary artery disease. Her EF ranged from 15% to 25% depending on the study and interpretation. She saw the private watchman yesterday and her Coreg was increased to try to maximize medical therapy. She is reluctant to do so. She does not want to take aspirin or Lipitor that was prescribed due to risks. Today she is just having a cough which was worse but is getting better. She does not have any chest pain or shortness a breath. She is weighing herself daily. She is on a 2 L per day fluid restriction as well as 2000 mg salt restriction. Unfortunately she does not have any insurance right now. She retired from [employer] last October and [employer] insurance was too expensive. She also had labs done and was told that she had hepatitis-B in the past. Her hepatitis-B core antibody was positive. She has never had hepatitis that she is aware of. She does not have any abdominal pain right now. She is trying to follow a low-fat diet. The following portions of the patient's history were reviewed and updated as appropriate: allergies, current medications, past family history, past medical history, past social history, past surgical history, problem list, and medication reconciliation was completed including current medication and post discharge medication. Review of Systems Constitutional: Negative. HENT: Negative. Respiratory: Positive for cough. Gastrointestinal: Negative. Genitourinary: Negative. Musculoskeletal: Negative. Psychiatric/Behavioral: Negative. Objective Physical Exam Vitals reviewed. Exam conducted with a gas station cashier present (). Constitutional: General: She is not in acute distress. Appearance: She is not ill-appearing. HENT: Head: Normocephalic. Eyes: General: No scleral icterus. Extraocular Movements: Extraocular movements intact. Conjunctiva/sclera: Conjunctivae normal. Cardiovascular: Rate and Rhythm: Normal rate and regular rhythm. Pulses: Normal pulses. Heart sounds: Normal heart sounds. No murmur heard. Pulmonary: Effort: Pulmonary effort is normal. No respiratory distress. Breath sounds: Normal breath sounds. No wheezing, rhonchi or rales. Abdominal: General: Bowel sounds are normal. Palpations: Abdomen is soft. Tenderness: There is abdominal tenderness. Musculoskeletal: Right lower leg: No edema. Left lower leg: No edema. Neurological: General: No focal deficit present. Mental Status: She is alert and oriented to person, place, and time. Psychiatric: Mood and Affect: Mood normal. Behavior: Behavior normal. Thought Content: Thought content normal. Judgment: Judgment normal. Assessment/Plan Jo Ann was seen today for pain in side from coughing and follow-up. Diagnoses and all orders for this visit: Heart failure, unspecified HF chronicity, unspecified heart failure type ([facility]) Follow up with specialist. I recommend that she follow the recommendation to increase Coreg to 6.25 to reach the maximally tolerated dose to help with her heart failure. Hospital records and consultations were reviewed. Recommend to weigh self daily and continue salt and fluid restrictions. Heart failure with reduced ejection fraction (HFrEF, <= 40%) (CMS-HCC) As above. Calculus of gallbladder without cholecystitis without obstruction Recommended low-fat diet for now. Elevated liver enzymes We will need rechecked in the future. Could be due to either the hepatitis, gallbladder or other possibilities. Other orders - carvediloL (COREG) 6.25 mg tablet; Take 1 tablet (6.25 mg total) by mouth in the morning and 1 tablet (6.25 mg total) in the evening. Take with meals. Not taking yet. Currently she does not have insurance. I encouraged her to check healthcare dot go of to see if she qualifies for insurance through the open market place. documented in this encounter [employer] 09-19-2024 Note [facility] Subjective Jo Ann Lobo is a 63 y.o. year old female patient being seen for Congestive Heart Failure , Cardiomyopathy, pericardial effusion , and Abnormal Potassium Patient Active Problem List Diagnosis HFrEF (heart failure with reduced ejection fraction) (CMS/HCC) Pericardial effusion Pleural effusion, bilateral Transaminitis Heart failure (CMS/HCC) HPI The patient is a 63-year-old female who came to [facility] on 09/07/2024 with shortness of breath and cough and her chest CT showed evidence of small to moderate pericardial effusion therefore she was transferred to [facility]. She underwent echocardiographic study which showed severely reduced left ventricular static function with ejection fraction 25% and moderate pericardial effusion. She underwent cardiac catheterization on 09/07/2024 which showed nonobstructive CAD and nonischemic cardiomyopathy with mild elevation of right-sided pressure, wedge pressure 11 millimeter of mercury. Patient is here today with her for follow-up visit. She reports that she has been doing well. She denies any chest pain or shortness of breath at rest or with exertion. She denies orthopnea or paroxysmal nocturnal dyspnea. She denies any palpitations or dizziness or syncope or near syncope. She denies legs edema or leg discomfort on exertion. She showed me her blood pressure log at home and her blood pressure has been in the range of 120-130 over 80s and the heart rate in the 80s She is not taking atorvastatin because of concern about cholesterol medication side effects and the same for aspirin ROS All systems were reviewed and they were negative except for the positive findings noted above in the history Past Medical History: Diagnosis Date Cardiomyopathy (CMS/HCC) CHF (congestive heart failure) (CMS/HCC) Hypokalemia Pericardial effusion Past Surgical History: Procedure Laterality Date TUBAL LIGATION Family History Problem Relation Name Age of Onset No Known Problems Mother No Known Problems Father Social History Tobacco Use Smoking status: Never Smokeless tobacco: Never Substance Use Topics Alcohol use: Not Currently Allergies Allergies Allergen Reactions Clarithromycin Hives Codeine Hives Medications Current Outpatient Medications: carvedilol (Coreg) 3.125 mg tablet, Take 1 tablet (3.125 mg) by mouth with breakfast and with evening meal., Disp: 60 tablet, Rfl: 0 furosemide (Lasix) 20 mg tablet, Take 1 tablet (20 mg) by mouth in the morning for 30 doses., Disp: 30 tablet, Rfl: 0 spironolactone (Aldactone) 25 mg tablet, Take 1 tablet (25 mg) by mouth in the morning., Disp: 30 tablet, Rfl: 0 valsartan (Diovan) 40 mg tablet, Take 1 tablet (40 mg) by mouth in the morning., Disp: 30 tablet, Rfl: 0 aspirin 81 mg EC tablet, Take 1 tablet (81 mg) by mouth in the morning. (Patient not taking: Reported on 09/19/2024), Disp: 30 tablet, Rfl: 0 atorvastatin (Lipitor) 20 mg tablet, Take 1 tablet (20 mg) by mouth at bedtime. (Patient not taking: Reported on 09/19/2024), Disp: 30 tablet, Rfl: 0 Objective Visit Vitals BP 131/87 (BP Location: Left arm, Patient Position: Sitting) Pulse 87 Ht 1.473 m (4' 10 ) Wt 59.4 kg (131 lb) SpO2 98% BMI 27.38 kg/m??? Smoking Status Never BSA 1.56 m??? Physical exam: GENERAL: alert and oriented x3, well developed, in no acute distress. HEAD: atraumatic, normocephalic. EYES: LARRY, EOMI. NECK: trachea midline, no JVD present, no carotid bruits present. CARDIAC: S1, S2 present. RRR. No murmur, rubs, or gallops. RESPIRATORY: CTAB, no increased effort of breathing, no rales, rhonchi, or wheezing. ABDOMEN: soft, nontender, nondistended. EXTREMITIES: no lower extremity edema. No rash/skin discoloration present. NEURO: strength/sensation equal and symmetric in bilateral upper and lower extremities. PSYCH: appropriate mood, affect, and judgement. Recent Labs Lab Results Component Value Date GLUCOSE 127 (H) 09/08/2024 CALCIUM 9.4 09/08/2024 NA 132 (L) 09/08/2024 K 3.4 (L) 09/08/2024 CO2 29 09/08/2024 CL 93 (L) 09/08/2024 BUN 21 09/08/2024 CREATININE 0.82 09/08/2024 Magnesium 2.3 Lab Results Component Value Date WBC 8.26 09/07/2024 HGB 14.9 09/07/2024 HCT 44.3 09/07/2024 MCV 92.3 09/07/2024 PLT 339 09/07/2024 Lab Results Component Value Date CHOL 306 (H) 09/08/2024 Lab Results Component Value Date HDL 30 09/08/2024 Lab Results Component Value Date LDLCALC 230 (H) 09/08/2024 Lab Results Component Value Date TRIG 232 (H) 09/08/2024 No components found for: CHOLHDL Lab Results Component Value Date ALT 227 (H) 09/07/2024 AST 97 (H) 09/07/2024 ALKPHOS 117 (H) 09/07/2024 BILITOT 1.1 (H) 09/07/2024 No results found for: TSH BNP 250 Imaging and other tests EK09/07/2024 showed normal sinus rhythm, left atrial enlargement, left axi (more content not included)... [facility] 09-08-2024 Note Hospital Medicine Discharge Summary Final Discharge Diagnosis: # Acute HFrEF 15-20% # Nonischemic cardiomyopathy # Positive Hep B core antibodies: Admission Diagnosis: Heart failure (CMS/HCC) [I50.9] # Pericardial effusion # Hypokalemia Hospital course: Surgical, Invasive or Diagnostic Procedures Done During Admission: Cardiac Cath Consultations During Admission: Cardiology 63 y.o. female who came from [facility] with shortness of breath for 2 weeks. Patient does not have any known past medical history, she does not take any medications every day. She denies any family history of cardiac disease. Family at bedside reports shortness of breath started a couple of weeks ago with a cough and they thought she had bronchitis. Shortness of breath became so severe bringing her to the ER in [place]. She reports orthopnea. She denies smoking, alcohol use or drug use. CTA in [place] was negative for PE and showed small right pleural effusion with small to moderate-sized pericardial effusion EKG showing sinus tachycardia with nonspecific T wave abnormality. She did have abdominal ultrasound completed of the right upper quadrant that showed diffuse hepatic steatosis, no hepatomegaly or hepatic masses, probable cholelithiasis with no gallbladder wall thickening negative Dominguez sign and nondistended gallbladder, no pericholecystic fluid, and patent portal and hepatic veins. No intrahepatic biliary ductal dilation, no acute evidence of cholecystitis Labs are unremarkable with the exception of elevated liver enzymes. # Acute HFrEF 15-20%: # Nonischemic cardiomyopathy: - Cath showed mild disease. - Discharged on Lasix 20 mg daily, valsartan, Coreg and spironolactone. Patient was not discharged on Farxiga due to cost. - Follow up with Cardiology. # Pericardial effusion, small: - Follow up with Cardiology. - No intervention is needed. # Positive Hep B core antibodies: - Likely hx of Hep B infection. - Follow up with PCP for further testing. # Hypokalemia s/p replacement. Dear Dr. Dixon MD, Jo Ann is advised to follow up with you within 1-2 weeks. Items to follow up in ambulatory setting: None Follow-up with: Cardiology Scheduled appointments: Future Appointments Date Time Provider Department Center 09/19/2024 3:40 PM America George MD [facility] Your medication list START taking these medications Instructions Last Dose Given Next Dose Due aspirin 81 mg EC tablet Take 1 tablet (81 mg) by mouth in the morning. atorvastatin 20 mg tablet Commonly known as: Lipitor Take 1 tablet (20 mg) by mouth at bedtime. carvedilol 3.125 mg tablet Commonly known as: Coreg Take 1 tablet (3.125 mg) by mouth with breakfast and with evening meal. furosemide 20 mg tablet Commonly known as: Lasix Start taking on: September 09, 2024 Take 1 tablet (20 mg) by mouth in the morning for 30 doses. spironolactone 25 mg tablet Commonly known as: Aldactone Take 1 tablet (25 mg) by mouth in the morning. valsartan 40 mg tablet Commonly known as: Diovan Take 1 tablet (40 mg) by mouth in the morning. Where to Get Your Medications These medications were sent to [facility] - [place], [place] - [facility] [address] [place] [address] [place] [address], [facility] [address] aspirin 81 mg EC tablet atorvastatin 20 mg tablet carvedilol 3.125 mg tablet furosemide 20 mg tablet spironolactone 25 mg tablet valsartan 40 mg tablet Jo Ann is allergic to clarithromycin and codeine. Disposition: Home or Self Care () Discharge Condition: Stable Code Status: Full Code Diagnostic Results Hematology: Results from last 7 days Lab Units 09/07/24 0629 WBC AUTO 10*3/uL 8.26 HEMOGLOBIN g/dL 14.9 HEMATOCRIT % 44.3 MCV fL 92.3 PLATELETS AUTO 10*3/uL 339 INR 1.10 Chemistry: Results from last 7 days Lab Units 09/08/24 0835 09/07/24 1550 09/07/24 0629 SODIUM mmol/L 132* 137 136 POTASSIUM mmol/L 3.4* 3.7 3.5 CHLORIDE mmol/L 93* 96* 97* CO2 mmol/L 29 32* 29 BUN mg/dL 21 -- 22 CREATININE mg/dL 0.82 -- 0.76 GLUCOSE mg/dL 127* -- 128* MAGNESIUM mg/dL 2.2 2.3 2.3 CALCIUM mg/dL 9.4 -- 9.6 PHOSPHORUS mg/dL -- -- 4.8 Results from last 7 days Lab Units 09/07/24 0629 AST U/L 97* ALT U/L 227* ALK PHOS U/L 117* BILIRUBIN TOTAL mg/dL 1.1* Test Results Pending At Discharge: Diet at the time of discharge: cardiac diet Nutrition Screen Activity: Normal activity as tolerated Objective Blood pressure (!) 133/99, pulse 87, temperature 36.6 ???C (97.9 ???F), temperature source Temporal, resp. rate 18, height 1.473 m (4' 10 ), weight 60.3 kg (133 lb), SpO2 97%. General: Alert and oriented x3. Cardiology: Normal rate, regular rhythm. Lungs: Clear to auscultation, no wheezes, rales or rhonchi, symmetric air entry. Abdomen: Soft, non tender, non distended. Total time for discharge - r (more content not included)... [facility] 09-08-2024 Note Attestation signed by Medhat Moyer MD at 09/08/2024 12:40 PM I evaluated discussed and reviewed the patient on rounds with the sustainability communicator. I agree with his assessment and plan as documented in his patient progress note from today Cardiology Progress Note Subjective Subjective: Patient was seen and examined. Reported feeling well. No chest pain, or shortness of breath. No abdominal pain, nausea, or vomiting. No orthopnea or paroxysmal nocturnal dyspnea. No lower leg swelling. No acute events overnight. Objective Current Facility-Administered Medications: acetaminophen (Tylenol) tablet 650 mg, 650 mg, oral, q6h PRN, Christian Gates MD carvedilol (Coreg) tablet 3.125 mg, 3.125 mg, oral, BID with meals, Zahida Rivera NP, 3.125 mg at 09/08/24 0730 furosemide (Lasix) injection 40 mg, 40 mg, intravenous, Daily, Zahida Rivera NP, 40 mg at 09/07/24 0907 heparin (porcine) injection 5,000 Units, 5,000 Units, subcutaneous, BID, Zahida Rivera NP, 5,000 Units at 09/07/24 2157 melatonin tablet 5 mg, 5 mg, oral, Nightly Christian VALLES MD Objective: Patient Vitals for the past 24 hrs: BP Temp Temp src Pulse Resp SpO2 Height Weight 09/08/24 0720 (!) 133/99 36.6 ???C (97.9 ???F) Temporal 87 18 97 % -- -- 09/08/24 0504 121/85 -- -- 87 -- 92 % -- -- 09/08/24 0400 125/89 36.7 ???C (98.1 ???F) Temporal 81 15 93 % -- -- 09/08/24 0300 -- -- -- -- -- -- 1.473 m (4' 10 ) 60.3 kg (133 lb) 09/08/24 0102 (!) 122/100 -- -- 89 16 96 % -- -- 09/08/24 0000 109/86 36.6 ???C (97.9 ???F) Temporal 82 17 92 % -- -- 09/07/24 2100 110/77 -- -- 85 18 93 % -- -- 09/07/24 2000 108/69 36.5 ???C (97.7 ???F) Temporal 91 17 94 % -- -- 09/07/24 1900 115/84 -- -- 91 18 94 % -- -- 09/07/24 1800 -- -- -- -- 18 -- -- -- 09/07/24 1730 114/77 -- -- 86 19 96 % -- -- 09/07/24 1718 104/68 -- -- 89 -- -- -- -- 09/07/24 1700 -- -- -- -- -- 94 % -- -- 09/07/24 1645 98/71 -- -- 82 18 92 % -- -- 09/07/24 1630 90/60 -- -- 81 17 90 % -- -- 09/07/24 1615 94/68 -- -- 79 16 91 % -- -- 09/07/24 1600 105/74 36.6 ???C (97.9 ???F) Temporal 77 17 91 % -- -- 09/07/24 1545 107/75 -- -- 83 26 93 % -- -- 09/07/24 1530 92/76 -- -- 82 22 95 % -- -- 09/07/24 1515 99/65 -- -- 88 18 94 % -- -- 09/07/24 1500 113/85 -- -- 81 15 98 % -- -- 09/07/24 1445 111/79 -- -- 79 25 92 % -- -- 09/07/24 1430 115/85 -- -- 79 18 91 % -- -- 09/07/24 1415 104/71 -- -- 81 (!) 27 91 % -- -- 09/07/24 1414 105/70 36.6 ???C (97.9 ???F) Temporal 83 24 92 % -- -- 09/07/24 1350 101/71 36.6 ???C (97.9 ???F) Temporal 83 12 91 % -- -- 09/07/24 1338 114/77 -- -- 87 19 96 % -- -- 09/07/24 1305 -- -- -- -- -- 97 % -- -- 09/07/24 1304 (!) 140/102 -- -- 103 16 97 % -- -- 09/07/24 1225 128/84 36.7 ???C (98.1 ???F) Temporal 96 18 93 % -- -- 09/07/24 0905 117/78 -- -- 97 22 92 % -- -- Physical Examination: Physical Exam Constitutional: General: She is not in acute distress. Appearance: Normal appearance. She is not ill-appearing. HENT: Head: Normocephalic and atraumatic. Cardiovascular: Rate and Rhythm: Normal rate and regular rhythm. Heart sounds: Normal heart sounds. No murmur heard. Pulmonary: Breath sounds: Normal breath sounds. No wheezing or rales. Abdominal: Palpations: Abdomen is soft. Tenderness: There is no abdominal tenderness. Musculoskeletal: Right lower leg: No edema. Left lower leg: No edema. Skin: General: Skin is warm and dry. Findings: No erythema or rash. Neurological: Mental Status: She is alert and oriented to person, place, and time. Mental status is at baseline. Relevant Lab Results Encounter Date: 09/07/24 Electrocardiogram, 12-lead Result Value Ventricular Rate 92 Atrial Rate 92 FL Interval 168 QRS DURATION 100 QT Interval 422 QTC CALCULATION(BAZETT) 521 P Lincoln 20 R-Lincoln -31 T Wave Lincoln 31 Impression Normal sinus rhythm Possible Left atrial enlargement Left axis deviation Minimal voltage criteria for LVH, may be normal variant ( [place] product ) T wave abnormality, consider anterolateral ischemia Prolonged QT Abnormal ECG No previous ECGs available Confirmed by STRESS, (55), material expeditor Efe HADLEY, L.S. (2) on 09/07/2024 1:22:29 PM Lab Results Component Value Date TROPONINI 0.02 09/07/2024 Complete Echo (TTE) w/wo Imaging Agent, Strain, 3D, Bubble Study Result Date: 09/07/2024 1 1 [facility] Heart Station [address] [place] [address] [phone] (fax) Echocardiogram-[facility] Name: JO ANN LOBO Study Date: 09/07/2024 11:29 AM B/P: 117 mmHg/78 mmHg HR: 89 bpm Date of : 1960 Location: [facility] Height: 58 in. Age: 63 year(s) Patient Room: 3120 Weight: 130 lb. Gender: Female Patient Status: InPt BSA: 1.52 m2 (more content not included)... [facility] 09-07-2024 Note Case was discussed w ith the CHESTER on 09/07/2024. I agree with the history, physical, assessment, and plan of care. I discussed the findings and therapeutic plan. I agree with the documentation, except for any updates below. TTE, cath given newly rEF Sourav Bailey MD [facility] 09-07-2024 Note Patient admitted to the hospital for: Heart failure. Chart echo from 09/07/2024 reports: EF 15-20%. Current echo report qualifies for Cardiac Rehab services per CMS eligibility criteria. A Cardiac Rehab referral diagnosis and code must also meet CMS criteria. Jocelynn Rizzo RN, BSN Cardiology Outpatient Coordinator Cardiopulmonary Rehab [facility] 09-07-2024 Note 09/07/24 4823 Admission Assessment Questions Verify insurance with patient Yes Do you understand medical disease or what brought you into the hospital? Yes Who is your current PCP? Malcolm Metcalf MD Can I schedule a follow up appointment for you at the time of discharge? No (does not take any) Do you understand why you are taking your current medications? No Are you taking your medications as prescribed? No Did patient provide teach back? No Pharmacy Bedside Delivery Status Interested Does the patient have a director case assigned to them through their insurance? No Living Arrangement (Current/Prior to Hospitalization) Private residence (lives at home with ) Does the patient have history of HHC or SNF? No Assistive Device Not applicable Patient's goal for discharge home Was patient reminded that goal for discharge is 11am? Yes Does the patient have transportation at discharge? Yes Type of Residence Private residence Is PT/OT appropriate? No Is PT/OT ordered? No Is SW consult appropriate? No Is SW consult ordered? No Do you understand the benefits of MyChart? Yes Were you able to send link and activate MyChart? Yes [facility] 09-07-2024 Note Fatty Liver Course: RUQ US from [place] with hepatic steatosis, no hepatomegaly or hepatic masses, probable cholelithiasis with no gallbladder wall thickening negative Dominguez sign and nondistended gallbladder, no pericholecystic fluid, and patent portal and hepatic veins. No intrahepatic biliary ductal dilation, no acute evidence of cholecystitis Today's Plan: Will get hepatitis panel Admit to step down Ambulate as tolerated NPO in case of heart cath, may have cardiac diet if deferred to tomorrow and be NPO at midnight Daily BMP and CBC to monitor kidney function, electrolytes, hgb and wbc Case will be discussed with attending physician [facility] 09-07-2024 Note Course: Cardiology e valuation Daily Update: Lasix 40mg daily Continuous telemetry [facility] 09-07-2024 Note Relevant Hx: SOB x 2 weeks, orthopnea, cough Course: Cardiology consult, BNP, troponin trend Lasix 40mg daily Coreg 3.125 BID Strict intake and output Daily weights [facility] 09-07-2024 Note Continuous pulse ox Lasix 40 mg daily [facility] 09-07-2024 Note Hospital Medicine History and Physical 09/07/2024 8:03 AM THE HOSPITALIST TEAM PREFERS TO USE [employer] FOR NON-URGENT COMMUNICATION 7AM-7PM. IF I DO NOT RESPOND WITHIN 20 MINUTES OR URGENT MATTERS, PLEASE CALL THROUGH THE INTERN. FROM 7PM-7AM, PLEASE PAGE [phone](COVR). Chief Complaint No chief complaint on file. History of Present Illness Jo Ann Lobo is an 63 y.o. female who came from [facility] with shortness of breath for 2 weeks. Patient does not have any known past medical history, she does not take any medications every day. She denies any family history of cardiac disease. Family at bedside reports shortness of breath started a couple of weeks ago with a cough and they thought she had bronchitis. Shortness of breath became so severe bringing her to the ER in [place]. She reports orthopnea. She denies smoking, alcohol use or drug use. CTA in [place] was negative for PE and showed small right pleural effusion with small to moderate-sized pericardial effusion EKG showing sinus tachycardia with nonspecific T wave abnormality. She did have abdominal ultrasound completed of the right upper quadrant that showed diffuse hepatic steatosis, no hepatomegaly or hepatic masses, probable cholelithiasis with no gallbladder wall thickening negative Dominguez sign and nondistended gallbladder, no pericholecystic fluid, and patent portal and hepatic veins. No intrahepatic biliary ductal dilation, no acute evidence of cholecystitis Labs are unremarkable with the exception of elevated liver enzymes. Review of System and Physical Exam Temp: [36.2 ???C (97.2 ???F)] 36.2 ???C (97.2 ???F) Heart Rate: [94] 94 Resp: [15] 15 BP: (123)/(71) 123/71 Physical Exam Vitals reviewed. Constitutional: General: She is awake. She is not in acute distress. Appearance: Normal appearance. She is not ill-appearing. Cardiovascular: Rate and Rhythm: Normal rate and regular rhythm. Heart sounds: Normal heart sounds. Pulmonary: Effort: Pulmonary effort is normal. No tachypnea, accessory muscle usage or respiratory distress. Abdominal: General: Bowel sounds are normal. There is no distension. Palpations: Abdomen is soft. Tenderness: There is no abdominal tenderness. Skin: General: Skin is warm and dry. Neurological: Mental Status: She is alert and oriented to person, place, and time. Mental status is at baseline. Psychiatric: Attention and Perception: Attention normal. Mood and Affect: Mood normal. Speech: Speech normal. Behavior: Behavior is cooperative. Review of Systems Constitutional: Negative. HENT: Negative. Eyes: Negative. Respiratory: Positive for shortness of breath. Cardiovascular: Positive for chest pain (with exertion). Gastrointestinal: Positive for abdominal pain (RUQ, none currently). Endocrine: Negative. Genitourinary: Negative. Musculoskeletal: Negative. Skin: Negative. Allergic/Immunologic: Negative. Neurological: Negative. Hematological: Negative. Psychiatric/Behavioral: Negative. Assessment and Plan Assessment & Plan HFrEF (heart failure with reduced ejection fraction) (CMS/[facility]) Relevant Hx: SOB x 2 weeks, orthopnea, cough Course: Cardiology consult, BNP, troponin trend Lasix 40mg daily Coreg 3.125 BID Strict intake and output Daily weights Pericardial effusion Course: Cardiology evaluation Daily Update: Lasix 40mg daily Continuous telemetry Pleural effusion, bilateral Continuous pulse ox Lasix 40 mg daily Transaminitis Fatty Liver Course: RUQ US from [place] with hepatic steatosis, no hepatomegaly or hepatic masses, probable cholelithiasis with no gallbladder wall thickening negative Dominguez sign and nondistended gallbladder, no pericholecystic fluid, and patent portal and hepatic veins. No intrahepatic biliary ductal dilation, no acute evidence of cholecystitis Today's Plan: Will get hepatitis panel Admit to step down Ambulate as tolerated NPO in case of heart cath, may have cardiac diet if deferred to tomorrow and be NPO at midnight Daily BMP and CBC to monitor kidney function, electrolytes, hgb and wbc Case will be discussed with attending physician VTE Prophylaxis: Heparin subcutaneous ----- Focus of this inpatient stay will remain on problems that need acute care setting for care. We will review available studies and will order additional labs, imaging and other studies as appropriate. As needed medicines are ordered as appropriate. VTE Prophylaxis will be ordered as appropriate. Please see above for management plan for individual hospital problems. Home medications are reviewed and will be continued as appropriate. Patient will be continued to be followed during this hospital stay by a member of [facility]. Past Medical History History reviewed. No pertinent past medical history. Past Surgical History History reviewed. No pertinent surgical history. Social Hist (more content not included)... [facility] 10-05-2023 History of Present illness Narrative pocSubjective Patient ID: Jo Ann Lobo is a 62 y.o. female. Jo Ann presents for URI symptoms. It started 2 days ago. She had a fever at home. It was 102-103. She has a headache. She feels lot of pressure up in her sinuses. She has coughing with just a little bit of mucus production. Her appetite is okay. She is drinking fluids okay. She has been taking Motrin for the fever and pain. She took Tessalon Perles in the past but it did not help. Her gave her 1 ivermectin this morning. She has not vaccinated against the flu or COVID. Her is not sick. She thinks she might have gotten sick from people at [facility] on Wednesday. Sinusitis The following portions of the patient's history were reviewed and updated as appropriate: allergies, current medications, past family history, past medical history, past social history, past surgical history, problem list, and medication reconciliation was completed including current medication and post discharge medication. Review of Systems Objective Physical Exam Constitutional: General: She is not in acute distress. Appearance: She is ill-appearing. HENT: Head: Normocephalic. Right Ear: Tympanic membrane, ear canal and external ear normal. Left Ear: Tympanic membrane, ear canal and external ear normal. Nose: Nose normal. Right Turbinates: Not enlarged, swollen or pale. Left Turbinates: Enlarged and swollen. Not pale. Mouth/Throat: Lips: [place]. Pharynx: Oropharynx is clear. Neck: Trachea: Trachea normal. Cardiovascular: Rate and Rhythm: Normal rate and regular rhythm. Pulses: Normal pulses. Heart sounds: Normal heart sounds. No murmur heard. Pulmonary: Effort: Pulmonary effort is normal. No respiratory distress. Breath sounds: Normal breath sounds. No wheezing, rhonchi or rales. Musculoskeletal: Cervical back: Neck supple. Lymphadenopathy: Cervical: No cervical adenopathy. Neurological: General: No focal deficit present. Mental Status: She is alert and oriented to person, place, and time. Psychiatric: Attention and Perception: Attention normal. Mood and Affect: Mood and affect normal. Speech: Speech normal. Behavior: Behavior normal. Behavior is cooperative. Thought Content: Thought content normal. Cognition and Memory: Cognition normal. Judgment: Judgment normal. Assessment/Plan Jo Ann was seen today for headache and sinusitis. Diagnoses and all orders for this visit: Influenza A - oseltamivir (TAMIFLU) 75 mg capsule; Take 1 capsule (75 mg total) by mouth in the morning and 1 capsule (75 mg total) before bedtime. Patient tested positive for influenza A. She has within a 48 hour window of starting medication. Risks and benefits of Tamiflu discussed. We will start Tamiflu 75 mg twice a day. She has not allergy to decongestants and mucolytics. She is fluticasone nasal spray in the past but it caused soreness in her nose. She can try Afrin nasal spray 2 sprays twice a day for 5 days and then she must stop. Cough, unspecified type - POCT Influenza A/Influenza B/SARS-COV-2 Veritor We will try a steroid burst for her cough symptoms. Other orders - predniSONE (DELTASONE) 20 mg tablet; Take 1 tablet (20 mg total) by mouth in the morning and 1 tablet (20 mg total) before bedtime. Do all this for 5 days. documented in this encounter [facility] 12-22-2022 Evaluation note Encounter Date Diagnosis Assessment Notes Nov, Sore throat (ICD-10 - J02.9) Nov, Seasonal allergic rhinitis due to pollen (ICD-10 - J30.1) Advise patient that rapid strep test was negative today in office. No other testing performed at this time. Discussed diagnosis with patient. Advised patient that physical exam is consistent with allergic rhinitis. Encouraged use of OTC Zyrtec/Claritin and Flonase for symptom relief. Encouraged supportive care as directed Tylenol/Motrin, salt water gargles, throat lozenges, cool mist humidification. Patient to follow-up with PCP if symptoms do not improve or worsen. Immediate evaluation in ER for signs/symptoms as discussed. Patient verbalizes understanding and is agreeable with treatment plan. [employer] Other Evaluation note* Diagnosis Heart failure, unspecified HF chronicity, unspecified heart failure type ([facility]-HCC)- Primary Heart failure with reduced ejection fraction (HFrEF, <= 40%) (CMS-HCC) Calculus of gallbladder without cholecystitis without obstruction Elevated liver enzymes Other nonspecific abnormal serum enzyme levels [facility] Influenza A- Primary Influenza with other respiratory manifestations Cough, unspecified type documented [facility] filedocumented in this [facility] filedocumented in this [facility] filedocumented in [facility] Summary Purpose Family History No Family History Records FoundNo Family History Records FoundNo Family History Records Found Advance Directives No Advanced Directives Records FoundNo Advanced Directives Records FoundNo Advanced Directives Records Found Additional Source Comments REASON FOR VISIT (unrecogniz ed section and content) Reason Comments pain in side from coughing Follow-up 09/05- [facility] to [facility] Reason Comments Headache Sinusitis 3 days INFORMATION SOURCE (unrecogn ized section and content) DATE CREATED AUTHOR 12/28/2022 [facility] DATE CREATED AUTHOR AUTHOR'S ORGANIZ ATION 09/22/2024 [facility] DATE CREATED AUTHOR AUTHOR'S ORGANIZ ATION 12/13/2024 [facility] Care Teams (unrecognized sec tion and content) Director Of Billing Relationship Specialty Start Date End Date Malcolm Metcalf DO [address], [facility] [place] [address] PCP - General Family Medicine 12/28/22 Director Of Billing Relationship Specialty Start Date End Date Malcolm Metcalf DO [address], [facility] [place] [address] PCP - General Family Medicine 12/28/22 Director Of Billing Relationship Specialty Start Date End Date Malcolm Metcalf DO [address], [place] [address] PCP - General Family Medicine 12/28/22 FOR RECORDS PERTAINING TO PATIENTS WHO ARE OR HAVE BEEN ENROLLED IN A CHEMICAL DEPENDENCY/SUBSTANCEABUSE PROGRAM, SOME INFORMATION MAY BE OMITTED. This clinical summary was aggregated from multiple sources. Caution should be exercised in using it in the provision of clinical care. This summary normalizes information from multiple sources, and as a consequence, information in this document may materially change the coding, format and clinical context of patient data. In addition, data may be omitted in some cases. CLINICAL DECISIONS SHOULD BE BASED ON THE PRIMARY CLINICAL RECORDS. [employer] [facility]. provides no warranty or guarantee of the accuracy or completeness of information in this document.
== END 2025-01-30 10:00 | disposition home or self-care (01) ==
LOC: CARD 10:00
PROVIDERS: PCP Family Medicine; Visit Provider Internal Medicine Cardiovascular Disease
DX: I50.42 Chronic combined systolic (congestive) and diastolic (congestive) heart failure (principal)
CPT/HCPCS: 93308

== ENCOUNTER 2025-02-02 09:16 | Outpatient (OUT) | payer SELFPAY ==
--- OUTSIDE RECORDS SUMMARY | 2025-02-02 09:19 | XMS_ITS | Encounter Summary ---
Author Organization [facility] Address [id number] [address] [place] [address] Care Team Providers Care Interior Designer Name Role Phone Malcolm Metcalf Primary Care Provider [phone] Encounter Details Date Type Department Care Team (Late st Contact Info) Description 09/06/2024 [facility] [address] [facility] [place] [address] Ref Prov, [place] [address] Social History Tobacco Use Types Packs/Day Years [...] documented as of this encounter Care Teams Interior Designer Relationship Specialty Start Date End Date Malcolm Metcalf DO [address] [facility], [place] [address] PCP - General Family Medicine 12/28/22 documented as of this encounter
--- OUTSIDE RECORDS SUMMARY | 2025-02-02 09:19 | XMS_ITS | Referral Summary ---
Author Organization [facility] Address [address] [place] [address] Care Team Providers Care Facsimile Operator Name Role Phone Dixon Malcolm Primary Care Provider [phone] Encounters Date Type Department Care Team Description 01/31/2025 Orders Only [place] [address] [place] [address] ProviderSarah MD 12/11/[address] [place] [address] DavidMolly sarah MA 12/11/2024 9:20 AM EDT Office Visit [address] [place] [address] Agnes George MD Chronic combined systolic and diastolic heart failure (CMS/HCC) (Primary Dx); HFrEF (heart failure with reduced ejection fraction) (CMS/HCC); Coronary artery disease involving port lions coronary artery of port lions heart without angina pectoris; Pericardial effusion; Essential hypertension; Mixed hyperlipidemia 12/09/2024 Orders Only [place] [address] [place] [address] Agnes George MD from Last 3 Months Allergies Active Allergy Reactions Criticality Noted Date Comments Clarithromycin Hives Medium 09/07/2024 Codeine Hives Medium 09/07/2024 Medications Medication Sig Dispensed Refills Start Date End Date Status furosemide (Lasix) 20 mg tabletIndications: Heart failure (CMS/HCC),HFrEF (heart failure with reduced ejection fraction) (CMS/HCC) Take 1 tablet (20 mg) by mouth in the morning for 360 doses. 90 tablet 3 09/19/2024 09/14/2025 Active spironolactone (Aldactone) 25 mg tabletIndications: Heart failure (CMS/HCC),HFrEF (heart failure with reduced ejection fraction) (CMS/HCC) Take 1 tablet (25 mg) by mouth once daily as directed. 90 tablet 3 09/19/2024 09/14/2025 Active carvedilol (Coreg) 6.25 mg tabletIndications: HFrEF (heart failure with reduced ejection fraction) (CMS/HCC) Take 1 tablet (6.25 mg) by mouth with breakfast and with evening meal. 180 tablet 3 09/19/2024 09/19/2025 Active aspirin 81 mg EC tablet Take 81 mg by mouth every other day. Active sacubitril-valsart an (Entresto) 49-51 mg tabletIndications: Chronic combined systolic and diastolic heart failure (CMS/HCC) Take 1 tablet by mouth two times daily. 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 30 tablet 11 12/11/2024 12/11/2025 Active Active Problems Problem Noted Date Diagnosed Date Essential hypertension 12/11/2024 Coronary artery disease invo lving [place] lions coronary artery of [place] lions heart without angina pectoris 09/19/2024 Mixed hyperlipidemia 09/19/2024 HFrEF (heart failure with reduced ejection fract ion) 09/07/2024 Assessment & Plan (09/07/2024 8:31 AM EST): Relevant Hx: SOB x 2 weeks, orthopnea, cough Course: Cardiology consult, BNP, troponin trend Lasix 40mg daily Coreg 3.125 BID Strict intake and output Daily weights Pericardial effusion 09/07/2024 Assessment & Plan (09/07/2024 8:31 AM EST): Course: Cardiology evaluation Daily Update: Lasix 40mg daily Continuous telemetry Pleural effusion, bilateral 09/07/2024 Assessment & Plan (09/07/2024 8:31 AM EST): Continuous pulse ox Lasix 40 mg daily Transaminitis 09/07/2024 Assessment & Plan (09/07/2024 9:09 AM EST): Fatty Liver Course: RUQ US from [place] with hepatic steatosis, no hepatomegaly or hepatic [...] Case will be discussed with attending physician Heart failure 09/06/2024 Social History Tobacco Use Types Packs/Day Years Used Date Smoking Tobacco: Never Smokeless Tobacco: Never Tobacco Cessation:Counseling Given: Not Answered Alcohol Use Standard Drinks/Week Comments Not Currently 0 (1 standard drink = 0.6 oz pur e alcohol) [facility] Utilities Answer Date Recorded In the past 12 months has th e [employer], gas, oil, or water [employer] threatened to shut off services in your home? No 09/07/2024 Humiliation, Afraid, Rape, and Kick questionnair e Answer Date Recorded Within the last year, have y ou been afraid of your partner or ex-partner? No 09/07/2024 Emotionally Abused Not on file 09/07/2024 Physically Abused Not on file 09/07/2024 Sexually Abused Not on file 09/07/2024 Overall Financial Resource Strain (CARDIA) Answe r Date Recorded How hard is it for you to pa y for the very basics like food, housing, medical care, and heating? Not hard at all 09/07/2024 Transportation Answer Date Recorded In the past 12 months, has l ack of transportation kept you from medical appointments or from getting medications? No 09/07/2024 Lack of Transportation (Non-Medical) Not on file 09/07/2024 Housing Stability Vital Sign Answer Tony e Recorded In the last 12 months, was t here a time when you were not able to pay the mortgage or rent on time? No 09/07/2024 Number of Times Moved in the Last Year Not on fi le 09/07/2024 At any time in the past 12 m [facility], were you homeless or living in a [place] (including now)? No 09/07/2024 Hunger Vital Sign Answer Date Recorded Within the past 12 months, y ou worried that your food would run out before you got the money to buy more. Never true 09/07/19 25 Ran Out of Food in the Last Year Not on file 09/07/2024 Sex and Gender Information Value Date Recorded Sex Assigned at Female 09/07/2024 6:10 AM EST Gender Identity Female 09/07/2024 6:10 AM EST Sexual Orientation Heterosexual or Straight 04/2025 6:10 AM EST Last Filed Vital Signs Vital Sign Reading Time Taken Comments Blood Pressure 148/91 12/11/2024 9:17 AM EDT Pulse 78 12/11/2024 9:17 AM EDT Temperature 36.6 C (97.9 F) 09/08/2024 11:20 AM EST Respiratory Rate 18 09/08/2024 11:20 AM EST Oxygen Saturation 98% 12/11/2024 9:17 AM EDT Inhaled Oxygen Concentration - - Weight 59.4 kg (131 lb) 12/11/2024 9:17 AM EDT Height 147.3 cm (4' 10 ) 12/11/2024 9:17 AM EDT Body Mass Index 27.38 12/11/2024 9:17 AM EDT Plan of Treatment Upcoming Encounters Date Type Department Care Team (Late st Contact Info) Description 02/05/2025 9:40 AM EDT Office Visit [facility] Heart at [facility] [address] [place] [address] Agnes George MD [address] [place] [address] Procedures Procedure Name Priority Date/Time Associated Diagnosis Comments LIMITED ECHO (TTE) W/WO LIMITED DOPPLER, COLOR FLOW, IMAGING AGENT, STRAIN, 3D, BUBBLE STUDY Routine 01/30/2025 9:49 AM EDT from Last 3 Months Results * Limited Echo (TTE) w/wo Limited Doppler, Color Flow, Imaging Agent, Strain, 3D, Bubble Study (01/30/2025 9:49 AM EDT) Anatomical Region Laterality Modality Ultrasound Historical Provider MD VENEGAS ECHO PROCEDURE S from Last 3 Months Advance Directives * Full Code (Latest Code Status on File) Date Activated Date Inactivated Comments 09/07/2024 6:07 AM 09/08/2024 3:11 PM Care Teams Facsimile Operator Relationship Specialty Start Date End Date Malcolm Metcalf DO [address] [facility] PCP - General Family Medicine 09/07/24
--- OUTSIDE RECORDS SUMMARY | 2025-02-02 09:19 | XMS_ITS | Encounter Summary ---
Author Organization [facility] Address [id number] [address] [place] [address] Care Team Providers Care Noodle Catalyst Maker Name Role Phone Malcolm Metcalf Primary Care Provider [phone] Encounter Details Date Type Department Care Team (Late st Contact Info) Description 11/24/2023 [facility]phone [facility] Internal [facility] - Family Medicine [address] [place] [address] Johanny Nielsen CMA Social History Tobacco Use [...] documented as of this encounter Care Teams Noodle Catalyst Maker Relationship Specialty Start Date End Date Malcolm Metcalf DO [address], [facility] [address] PCP - General Family Medicine 12/28/22 documented as of this encounter
--- OUTSIDE RECORDS SUMMARY | 2025-02-02 09:19 | XMS_ITS | Clinical Summary ---
Author Organization [facility] Address [id number] [address] [place] [address] Care Team Providers Care Inventory Associate Name Role Phone YaakovMalcolm merrill Primary Care [...] Recorded Do you need help finding a [facility] career center and/or a training program? No [...] Medical Devices Not on file Care Teams Inventory Associate Relationship Specialty Start Date End Date Malcolm Metcalf DO [address] [facility], [place] [address] PCP - General Family Medicine 12/28/22
--- OUTSIDE RECORDS SUMMARY | 2025-02-02 09:19 | XMS_ITS | Encounter Summary ---
Author Organization [facility] Address [address] [place] [address] Care Team Providers Care Pump Mechanic Name Role Phone Malcolm Metcalf DO Primary Care Provider Encounter Details Date Type Department Care Team (Late st Contact Info) Description 01/31/2025 Orders Only [facility] Heart at [facility] [address] [place] [address] ProviderSarah MD [address] [place], [place] [id number] Social History Tobacco Use Types Packs/Day Years Used Date Smoking Tobacco: Never Smokeless Tobacco: Never Alcohol Use Standard Drinks/Week Comments Not Currently 0 (1 standard drink = 0.6 oz pur e alcohol) [facility] Utilities Answer Date Recorded In the past 12 months has th e electric, gas, oil, or water company threatened to shut off services in your [...] any time in the past 12 m [facility], were you homeless or living in a fpc (including now)? No 09/07/2024 Hunger Vital Sign [...] Heterosexual or Straight 04/2025 6:10 AM EST documented as of this encounter Plan of Treatment Upcoming Encounters Date Type Department Care Team (Late st Contact Info) Description 02/05/2025 9:40 AM EDT Office Visit [facility] [address] [place] [address] Agnes George MD [address] [place] [address] documented as of this encounter Procedures Procedure Name Priority Date/Time Associated Diagnosis Comments LIMITED ECHO (TTE) W/WO LIMITED DOPPLER, COLOR FLOW, IMAGING AGENT, STRAIN, 3D, BUBBLE STUDY Routine 01/30/2025 9:49 AM EDT documented in this encounter Results * Limited Echo (TTE) w/wo Limited Doppler, Color Flow, Imaging Agent, Strain, 3D, Bubble Study (01/30/2025 9:49 AM EDT) Anatomical Region Laterality Modality Ultrasound Historical Provider MD VENEGAS ECHO PROCEDURE S documented in this encounter Visit Diagnoses Not on filedocumented in this encounter Care Teams Pump Mechanic Relationship Specialty Start Date End Date Malcolm Metcalf DO [address] [facility] PCP - General Family Medicine 09/07/24 documented as of this encounter
--- OUTSIDE RECORDS SUMMARY | 2025-02-02 09:19 | XMS_ITS | Clinical Summary ---
Author Organization [facility] Address [address] [place] [address] Care Team Providers Care V Belt Inspector Name Role Phone DixonMalcolm Primary Care Provider [phone] Allergies Active Allergy Reactions Criticality Noted Date [...] 12 12/11/2024 01/05/2026 Active empagliflozin (Jardiance) 10 mgIndications:Nc Machinist eloy combined systolic and diastolic heart failure (CMS/HCC) Take 1 tablet (10 mg) by mouth in the morning. 30 tablet 11 12/11/2024 12/11/2025 Active Active Problems Problem Noted Date Diagnosed Date Essential hypertension 12/11/2024 Coronary artery disease invo lving [place] coronary artery of [place] heart without angina pectoris 09/19/2024 Mixed hyperlipidemia [...] EST): Fatty Liver Course: RUQ US from [place] with hepatic steatosis, no hepatomegaly or hepatic [...] discussed with attending physician Heart failure 09/06/2024 Encounters Date Type Department Care Team Description 01/31/2025 Orders Only [facility] Heart at [place] [address] [place] [address] ProviderSarah MD 12/11/2024 9:20 AM EDT Office Visit [facility] [address] [place] [facility] [place] [address] Agnes George MD Chronic combined systolic and diastolic heart failure (CMS/HCC) (Primary Dx); HFrEF (heart failure with reduced ejection fraction) (CMS/HCC); Coronary artery disease involving [place] coronary artery of [place] heart without angina pectoris; Pericardial effusion; Essential hypertension; Mixed hyperlipidemia 12/11/2024 Telephone [facility] [address] [place] [facility] [place] [address] Molly Hernandez MA 12/09/2024 Orders Only [facility] [address] [place] [facility] [address] Agnes George MD from Last 3 Months Family History Medical History Relation Name Comments No Known Problems Father No Known Problems Mother Relation Name Status Comments Brother Alive Father Mother Alive Sister Alive Social History Tobacco Use Types Packs/Day Years Used Date Smoking Tobacco: Never Smokeless Tobacco: Never Tobacco Cessation:Counseling Given: Not Answered Alcohol Use Standard Drinks/Week Comments Not Currently 0 (1 standard drink = 0.6 oz pur e alcohol) [facility] Utilities Answer Date Recorded In the past 12 months has e [employer], gas, oil, or water [employer] threatened to shut off services in your [...] any time in the past 12 m [facility], were you homeless or living in a long term (including now)? No 09/07/2024 Hunger Vital Sign [...] Description 02/05/2025 9:40 AM EDT Office Visit [facility] Heart at [facility] [address] [place] [address] Agnes George MD [address] [id number] [place] [address] Health Maintenance Due Date Last Done Comments CT Colonography 1961 Colonoscopy 1961 Colorectal Cancer Screening 1961 FIT-DNA 1961 FIT 1961 FOBT 1961 Sigmoidoscopy 1961 Pneumococcal Vaccine: Pediat rics (0 to 5 Years) and At-Risk Patients (6 to 64 Years) (1 of 2 - PCV) 12/16/1967 Depression Screening 1973 Pap Smear 1982 Adult Tetanus 12/16/1983 Cervical Cancer Screening 12/16/1991 HPV/Cotest 12/16/1991 Mammogram 2001 Zoster Vaccines (1 of 2) 12/16/2011 COVID-19 Vaccine (2023-2 5 season) 2024 Influenza Vaccine (Season Ended) 2025 HIB Vaccines Aged Out No longer eligi ble based on patient's age to complete this topic HPV Vaccines Aged Out No longer eligi ble based on patient's age to complete this topic IPV Vaccines Aged Out No longer eligi ble based on patient's age to complete this topic Meningococcal B Vaccine Aged Out No l onger eligible based on patient's age to complete this topic Meningococcal Vaccine Aged Out No margi chela eligible based on patient's age to complete this topic Rotavirus Vaccines Aged Out No longer eligible based on patient's age to complete this topic Procedures Procedure Name Priority Date/Time Associated Diagnosis [...] 6:07 AM 09/08/2024 3:11 PM Care Teams V Belt Inspector Relationship Specialty Start Date End Date Malcolm Metcalf DO [address] [facility] PCP - General Family Medicine 09/07/24
--- OUTSIDE RECORDS SUMMARY | 2025-02-02 09:39 | XMS_ITS | CCD ---
Author Organization [facility] Inform ion Partnership [facility] Care Team Providers Care Technical Planner Name Role Phone Bernice Dash Unavailable DR [...] sources) Clarithromycin; Translations: [CLARITHROMYCIN] Drug Allergy 3 [facility] (1 source) Robitussin Cold/Congestion Drug allergy [facility] Other (1 source) Clarithromycin Drug Allergy [facility] Repository (3 sources) Codeine; Translations: [CODEINE] Drug Allergy 5 [facility] Medicine in Practice [facility] (4 sources) guaiFENesin; Translations: [GUAIFENESIN] Drug Allergy 3 [facility] Work Phone: Medications Current Medications Medication [...] Drug Class(es) Dates Sig (Normalized) Sig (Original) [id number] 200 actuat albuterol 0.09 mg/actuat metered dose [...] Dr. George. She will discuss with patient. [facility] Office Visiton 12-11-2024 Follow-up visit [id number] Jo Ann Lobo 1960 F Date Provider Department Center 12/11/2024 AMERICA KNOWLES Family History Problem Relation Age of Onset No Known Problems Mother No Known Problems Father Family Status - Relation Status Age at Mother Alive Father Sister Alive Brother Alive Level of Service:99843 [place] OFFICE/OUTPATIENT ESTABLISHED MOD MDM 30 MIN Reason for Visit and Comments: Follow-up [635393] - Follow up with Echo Congestive Heart Failure [127] Cardiomyopathy [104] - [facility] Orders Onlyon 12-09-2024 Orders Only [id number] Jo Ann Lobo 1960 Date Provider Department Center 12/09/2024 [id number] CANELA Family History Problem Relation Age of Onset No Known Problems Mother No Known Problems Father Family Status - Relation Status Age at Mother Alive Father Sister Alive Brother Alive [facility] Follow-Upon 09-19-2024 Follow-Up [id number] MauroJo Ann M 1960 F Date Provider Department Center 09/19/2024 AMERICA KNOWLES Family History Problem Relation Age of Onset No Known Problems Mother No Known Problems Father Family Status - Relation Status Age at Mother Father Level of Service:56229 [place] OFFICE/OUTPATIENT ESTABLISHED MOD MDM 30 MIN Reason for Visit and Comments: Congestive Heart Failure [127] - Follow up [facility]. Cardiomyopathy [104] - She is not taking aspirin or atorvastatin. pericardial effusion [Other] - Denies SOB and chest pain. Abnormal Potassium [586] - Denies palpitations and lightheadedness. [facility] 36on 09-11-2024 36 Discharge date: 09/08/24 [...] questions or concerns at this time. Normal [facility] Documentationon 09-11-2024 Documentation [id number] Jo Ann Lobo 1960 F Date Provider Department Center 09/11/2024 [id number], [facility] DC [facility] No family history on file Reason for Visit and Comments: HF inpatient satisfaction survey sent. [Other] [facility] Telephoneon 09-11-2024 Telephone [id number] Pam Loboabel 1960 Date Provider Department [place] 09/11/2024 [id number], [facility] No family history on file Reason for Visit and Comments: HF post discharge call. [Other] [facility] 36on 09-09-2024 36 Attempted call back but no answer. [facility] Telephoneon 09-09-2024 Telephone [id number] Pam Loboabel 1960 Date Provider Department Center 09/09/2024 [facility] No family history on file Reason for Visit and Comments: post discharge call back [Other] Normal [facility] BASIC METABOLIC PANELon 08-30 Anion gap [Moles/Vol] 13 mmol/L Normal 7-20 [facility] Comment on above: Performed By: #### L [id number] ####[facility]OSPITAL LAB (BEAKER)[address] [place] [address] Calcium [Mass/Vol] 9.4 mg/dL Normal 8.6-10.3 [facility] Comment on above: Performed By: #### L [id number] ####[facility] (BEAKER)[address] [place] [address] Chloride [Moles/Vol] 93 mmol/L Low 98-107 [facility] Comment on above: Performed By: #### L [id number] ####[facility] (BEAKER)[address] [place] [address] CO2 [Moles/Vol] 29 mmol/L Normal 21-31 [facility] Comment on above: Performed By: #### L [id number] ####[facility] (BEAKER)[address] [place] [address] Creatinine [Mass/Vol] 0.82 mg/dL Normal 0.60-1.20 [facility] Comment on above: Performed By: #### L [id number] ####[facility] ([facility] [place] [address] GLOMERULAR FILTRATION RATE ML/MIN/1.73 SQ M.PREDICTED 80.8 mL/min/1.73m*2 Normal >60.0 [facility] Comment on above: Result Comment: The [facility]???s estimated glomerular filtration rate (eGFR) will no [...] of individuals. Performed By: #### L [id number] ####[facility] (BEAKER)[address] [place] [address] Glucose [Mass/Vol] 127 mg/dL High 70-100 [facility] Comment on above: Performed By: #### L [id number] ####[facility] (BEAKER)[address] [place] [address] Potassium [Moles/Vol] 3.4 mmol/L Low 3.5-5.1 [facility] Comment on above: Performed By: #### L [id number] ####[facility] (BEAKER)[address] [place] [address] Sodium [Moles/Vol] 132 mmol/L Low 136-145 [facility] Comment on above: Performed By: #### L [id number] ####[facility] (BEAKER)[address] [place] [address] Urea nitrogen [Mass/Vol] 21 mg/dL Normal 7-25 [facility] Comment on above: Performed By: #### L [id number] ####[facility] (BEAKER)[address] [place] [address] UREA NITROGEN/CREATININ E (MASS RATIO) IN SER/PLAS 25.6 Normal [facility] Comment on above: Performed By: #### L [id number] ####[facility] (JOAN)[address] [place] [address] CONSULTon 09-08-2024 CONSULT discharge planning: to return Home Patient came to this admission 09/07/2024 from Home with spouse; H&P stating presented to [facility] as a transfer from [facility] where she initially presented complaining of shortness [...] at this time - follow up with [facility] on AVS Normal [facility] CONSULT Adult Nutrition Assessment: Name: Jo Ann Lobo Date: 1960 Date of Visit: 09/08/24 Admission Dx: Heart failure (CMS/[facility]) [I50.9] Reason for assessment: MD referral - [...] Assessment: 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 Eats 3 meals/day and cooks at home. She does typically add salt to foods, eats canned and frozen meals a few times a week, ramen noodles a few times a week, likes to snack on pretzels. Said she got some education at [facility] before being transferred to [facility] but otherwise unfamiliar with heart [...] of Nutrition and Dietetics (AND) and the [place] Society of Enteral and Parenteral Nutrition (ASPEN). [...] To reach the Clinical Dietitian, please utilize [employer] Ordering chat Wednesday-Wednesday from 8AM-4PM or call extension [phone]. For weekends (Wednesday-Wednesday) and holidays, the Clinical Dietitian can be reached via pager ([phone]) from 9AM-3PM. The Clinical Nutrition Department is unable to respond to [employer] Ordering chat messages on Sundays and hols. Normal [facility] LIPID PANELon 09-08-2024 CHOL/HDL 10.2 mg/dL Normal [facility] Comment on above: Performed By: #### L [id number] #### [facility] (BEAKER) [address] [place] [address] Cholesterol [Mass/Vol] 306 mg/dL High 120-200 [facility] Comment on above: Performed By: #### L [id number] #### [facility] ([facility] [address] [place] [address] Magnesium [Mass/Vol] 232 mg/dL High 40-149 [facility] Comment on above: Result Comment: TRIG LYCERIDE REFERENCE RANGE: 20 YEARS AND OLDER CARDIOVASCULAR RISK LESS THAN 150 mg/dL LOW RISK 150 TO 199 mg/dL BORDERLINE RISK 200 mg/dL AND GREATER HIGH RISK Performed By: #### L [id number] #### [facility] ([facility]) [address] [place] [address] Magnesium [Mass/Vol] 230 mg/dL High 0-160 [facility] Comment on above: Performed By: #### L [id number] #### [facility] ([facility]) [address] [facility] [place] [address] Magnesium [Mass/Vol] 30 mg/dL Normal 23-92 [facility] Comment on above: Performed By: #### L [id number] #### [facility] ([facility]) [address] [place] [address] NON HDL CHOL. (LDL+VLDL) 276 Normal [facility] Comment on above: Performed By: #### L [id number] #### [facility] ([facility]) [address] [place] [address] TOTAL VLDL-C 46 mg/dL High 0-40 [facility] Comment on above: Performed By: #### L [id number] #### [facility] ([facility]) [address] [place] [address] MAGNESIUMon 09-08-2024 Magnesium [Mass/Vol] 2.2 mg/dL Normal 1.9-2.7 [facility] Comment on above: Performed By: #### L [id number] #### [facility] ([facility] [address] [place] [address] NURSNOTEon 09-08-2024 NURSNOTE Offset Press Operator Helper reviewed AVS and discharge instructions with pt and at bedside, imeds to bring meds to bedside, no questions pt IV out and ready for discharge. [facility] 30on 09-07-2024 30 The patient is Moderately Stable - Low risk of patient condition declining or worsening The patient's goals for the shift include Rest, comfort The clinical goals for the shift include VSS and Cath checks [facility] 30 Daily Case Managemen t Update Multidisciplinary rounds have been completed. Barriers to Discharge: Patient is a transfer from [place], and underwent a cardiac cath today with cardiology. Discharge dispo: pending clinical course, Patient is from home with goal to return home. With patient consent, Offset Press Operator Helper did reach out to Financial counselor. Diet: [...] for Consult? Answer: Heart Failure 09/07/24 0841 [facility] 30 The patient is Moderately Stable [...] baseline comfort level Outcome: Progressing . Normal [facility] 30 The patient is Moderately Stable - Low risk of patient condition declining or worsening The patient's goals for the shift include rest, comfort The clinical goals for the shift include VSS Normal [facility] ANESon 09-07-2024 ANES - Attestation signed by Anastasia Wilson MD at 09/07/2024 1:09 PM Agree with patient note as documented. Anastasia Wilson MD Patient: Jo Ann Lobo Procedure Information Date/Time: 09/07/24 1254 Procedures: Coronary angiography Right heart cath Location: [facility] PHYSICAL DAMAGE APPRAISER 3 / [facility] (Cath) Providers: Medhat Moyer [...] discussed with attending. Additional Equipment Requests Normal [facility] APTTon 09-07-2024 ACTIVATED PARTIAL THROMBOPLASTIN TIME IN PPP BY COAGULATION ASSAY 28.3 Seconds Normal 25.0-35.0 [facility] Comment on above: Result Comment: Clin ical significance of the APTT is questionable in the presence of heparin. Performed By: #### L [id number] #### [facility] ([facility]) [address] [place] [address] B-TYPE NATRIURETIC PEPTIDEon 09-07-2024 Natriuretic peptide B (Bld) [Mass/Vol] 250 pg/mL High 0-100 [facility] Comment on above: Performed By: #### L [id number] #### [facility] ([facility]) [address] [place] [address] CBC WITH AUTO DIFFERENTIALon 09-07-2024 Basophils (Bld) [#/Vol] 0.09 10*3/uL Normal 0.00-0.20 [facility] Comment on above: Performed By: #### L [id number] ####[facility] ([facility])[address] [place] [address] Basophils/100 WBC (Bld) 1.1 % High 0.0-1.0 [facility] Comment on above: Performed By: #### L [id number] ####[facility] ([facility])[address] [place] [place] [address] Eosinophils (Bld) [#/Vol] 0.17 10*3/uL Normal 0.00-0.50 [facility] Comment on above: Performed By: #### L [id number] ####[facility] ([facility])[address] [place] [address] Eosinophils/100 WBC (Bld) 2.1 % Normal 0.0-6.0 [facility] Comment on above: Performed By: #### L [id number] ####[facility] ([facility])[address] [place] [address] Erythrocyte distribution width (RBC) [Ratio] 14.2 % Normal 11.5-15.0 [facility] Comment on above: Performed By: #### L [id number] ####[facility] ([facility])[address] [place] [address] ERYTHROCYTE MEAN CORPUSCULAR HEMOGLOBIN CONCENTRATION (G/DL) BY AUTOMATED 33.6 g/dL Normal 32.0-35.0 [facility] Comment on above: Performed By: #### L [id number] ####[facility] ([facility] [place] [address] Hematocrit (Bld) [Volume fraction] 44.3 % Normal 36.0-48.0 [facility] Comment on above: Performed By: #### L [id number] ####[facility] ([facility])[address] [place] [address] Hemoglobin (Bld) [Mass/Vol] 14.9 g/dL Normal 12.0-15.0 [facility] Comment on above: Performed By: #### L [id number] ####[facility] ([facility])[address] [place] [address] Immature granulocytes (Bld) [#/Vol] 0.05 10*3/uL Normal 0.00-0.20 [facility] Comment on above: Performed By: #### L [id number] ####[facility] ([facility])[address] [place] [address] Immature granulocytes/100 WBC (Bld) 0.6 % Normal 0.0-1.0 [facility] Comment on above: Performed By: #### L [id number] ####[facility] (BEAKER)[address] [place] [address] Lymphocytes (Bld) [#/Vol] 1.66 10*3/uL Normal 1.20-4.00 [facility] Comment on above: Performed By: #### L [id number] ####[facility] ([facility] [place] [address] Lymphocytes/100 WBC (Bld) 20.1 % Normal 20.0-45.0 [facility] Comment on above: Performed By: #### L [id number] ####[facility] (BEAKER)[address] [place] [address] MCH (RBC) [Entitic mass] 31.0 pg Normal 27.0-33.0 [facility] Comment on above: Performed By: #### L [id number] ####[facility] (BEAKER)[address] [place] [address] MCV (RBC) [Entitic vol] 92.3 fL Normal 82.0-98.0 [facility] Comment on above: Performed By: #### L [id number] ####[facility] (BEAKER)[address] [place] [address] Monocytes (Bld) [#/Vol] 0.98 10*3/uL Normal 0.10-1.00 [facility] Comment on above: Performed By: #### L [id number] ####[facility] ([facility])[address] [place] [address] Monocytes/100 WBC (Bld) 11.9 % Normal 5.0-12.0 [facility] Comment on above: Performed By: #### L [id number] ####[facility] ([facility])[address] [place] [address] Neutrophils (Bld) [#/Vol] 5.31 10*3/uL Normal 1.60-7.60 [facility] Comment on above: Performed By: #### L [id number] ####[facility] ([facility])[address] [place] [address] Neutrophils/100 WBC (Bld) 64.2 % Normal 40.0-72.0 [facility] Comment on above: Performed By: #### L [id number] ####[facility] ([facility])[address] [place] [address] NRBC (PER 100 WBCS) BY AUTOMATED COUNT 0.0 % Normal 0 [facility] Comment on above: Performed By: #### L [id number] ####[facility] (BEAKER)[address] [place] [address] PLATELETS (10*3/UL) IN BLOOD AUTOMATED COUNT 339 10*3/uL Normal 150-400 [facility] Comment on above: Performed By: #### L [id number] ####[facility] (BEAKER)[address] [place] [address] RBC (Bld) [#/Vol] 4.80 10*6/uL Normal 3.80-5.00 [facility] Comment on above: Performed By: #### L [id number] ####[facility] ([facility])[address] [place] [address] WBC (Bld) [#/Vol] 8.26 10*3/uL Normal 4.00-10.60 [facility] Comment on above: Performed By: #### L [id number] ####[facility] ([facility])[address] [place] [address] COMPREHENSIVE METABOLIC PANE Cristino 09-07-2024 Albumin [Mass/Vol] 4.6 g/dL Normal 3.5-5.7 [facility] Comment on above: Performed By: #### L [id number] #### [facility] ([facility]) [address] [place] [address] ALP [Catalytic activity/Vol] 117 U/L High 34-104 [facility] Comment on above: Performed By: #### L [id number] #### [facility] ([facility]) [address] [place] [address] ALT [Catalytic activity/Vol] 227 U/L High 7-52 [facility] Comment on above: Performed By: #### L [id number] #### [facility] ([facility]) [address] [place] [address] Anion gap [Moles/Vol] 14 mmol/L Normal 7-20 [facility] Comment on above: Performed By: #### L [id number] #### [facility] ([facility]) [address] [place] [address] AST [Catalytic activity/Vol] 97 U/L High 13-39 [facility] Comment on above: Performed By: #### L [id number] #### [facility] ([facility]) [address] [place] [address] Bilirubin [Mass/Vol] 1.1 mg/dL High 0.3-1.0 [facility] Comment on above: Performed By: #### L [id number] #### [facility] ([facility]) [address] [place] [address] Calcium [Mass/Vol] 9.6 mg/dL Normal 8.6-10.3 [facility] Comment on above: Performed By: #### L [id number] #### [facility] ([facility]) [address] [place] [address] Chloride [Moles/Vol] 97 mmol/L Low 98-107 [facility] Comment on above: Performed By: #### L [id number] #### [facility] ([facility]) [address] [place] [address] CO2 [Moles/Vol] 29 mmol/L Normal 21-31 [facility] Comment on above: Performed By: #### L [id number] #### [facility] ([facility]) [address] [place] [address] Creatinine [Mass/Vol] 0.76 mg/dL Normal 0.60-1.20 [facility] Comment on above: Performed By: #### L [id number] #### [facility] ([facility]) [address] [place] [address] GLOMERULAR FILTRATION RATE ML/MIN/1.73 SQ M.PREDICTED 88.5 mL/min/1.73m*2 Normal >60.0 [facility] Comment on above: Result Comment: [facility]???s estimated glomerular filtration rate (eGFR) will no [...] individuals. Performed By: #### L [id number] #### [facility] ([facility]) [address] [place] [address] Glucose [Mass/Vol] 128 mg/dL High 70-100 [facility] Comment on above: Performed By: #### L [id number] #### [facility] ([facility]) [address] [place] [address] Potassium [Moles/Vol] 3.5 mmol/L Normal 3.5-5.1 [facility] Comment on above: Performed By: #### L [id number] #### [facility] ([facility]) [address] [place] [address] Protein [Mass/Vol] 7.9 g/dL Normal 6.0-8.3 [facility] Comment on above: Performed By: #### L [id number] #### [facility] ([facility]) [address] [place] [address] Sodium [Moles/Vol] 136 mmol/L Normal 136-145 [facility] Comment on above: Performed By: #### L [id number] #### [facility] ([facility]) [address] [place] [address] Urea nitrogen [Mass/Vol] 22 mg/dL Normal 7-25 [facility] Comment on above: Performed By: #### L [id number] #### [facility] ([facility]) [address] [place] [address] UREA NITROGEN/CREATININ E (MASS RATIO) IN SER/PLAS 28.9 Normal [facility] Comment on above: Performed By: #### L [id number] #### [facility] ([facility]) [address] [place] [address] CONSULTon 09-07-2024 CONSULT - Attestation signed by Medhat Moyer MD at 09/07/2024 4:59 PM I evaluated discussed and reviewed the patient on rounds with the infantry assaultman. I agree with his assessment and plan as documented in the patient's progress note from today Cardiology Consult Note Reason for Consult: CHF, pericardial effusion HPI: Jo Ann Lobo is a 63 y.o. female with unremarkable past medical history who presented to [facility] as a transfer from [facility] where she initially presented complaining of shortness [...] Value Ventricular Rate 92 Atrial Rate 92 GA Interval 168 QRS DURATION 100 QT Interval 422 QTC CALCULATION(BAZETT) 521 P Orange 20 R-Orange -31 T Wave Orange 31 Impression Normal sinus rhythm Possible Left atrial enlargement Left axis deviation Minimal voltage criteria for LVH, may be normal variant ( [place] product ) T wave abnormality, consider anterolateral [...] for LVH, may be normal variant ( [place] product ) T wave abnormality, consider anterolateral [...] follow pos (more content not included)... Normal [facility] ELECTROLYTE PANELon 09-07-19 25 Anion gap [Moles/Vol] 13 mmol/L Normal 7-20 [facility] Comment on above: Performed By: #### L [id number] #### [facility] ([facility]) [address] [place] [address] Chloride [Moles/Vol] 96 mmol/L Low 98-107 [facility] Comment on above: Performed By: #### L [id number] #### [facility] ([facility]) [address] [place] [address] CO2 [Moles/Vol] 32 mmol/L High 21-31 [facility] Comment on above: Performed By: #### L [id number] #### [facility] ([facility]) [address] [place] [address] Potassium [Moles/Vol] 3.7 mmol/L Normal 3.5-5.1 [facility] Comment on above: Performed By: #### L [id number] #### [facility] ([facility]) [address] [place] [address] Sodium [Moles/Vol] 137 mmol/L Normal 136-145 [facility] Comment on above: Performed By: #### L [id number] #### [facility] ([facility]) [address] [place] [address] HEPATITIS PANEL, ACUTEon HEPATITIS A VIRUS IGM AB PRESENCE IN SER/PLAS Non-Reactive Normal Nonreactive [facility] Comment on above: Performed By: #### L [id number] ####[facility] ([facility])[address] [place] [address] HEPATITIS B VIRUS CORE AB (PRESENCE) IN SER/PLAS BY IMM Reactive Critically abnormal Nonreactive [facility] Comment on above: Performed By: #### L [id number] ####[facility] ([facility])[address] [place] [address] HEPATITIS B VIRUS SURFACE AG PRESENCE IN SERUM Non-Reactive Normal Nonreactive [facility] Comment on above: Performed By: #### L [id number] ####[facility] (BEAKER)[address] [place] [address] HEPATITIS C VIRUS AB PRESENCE IN SERUM Non-Reactive Normal Nonreactive [facility] Comment on above: Performed By: #### L [id number] ####[facility] (BEALLIE)[address] [place] [address] HPon 09-07-2024 HP - Attestation signed by [...] unremarkable past medical history who presented to [facility] as a transfer from [facility] where she initially presented complaining of shortness [...] Value Ventricular Rate 92 Atrial Rate 92 GA Interval 168 QRS DURATION 100 QT Interval 422 QTC CALCULATION(BAZETT) 521 P Orange 20 R-Orange -31 T Wave Orange 31 Impression Normal sinus rhythm Possible Left atrial enlargement Left axis deviation Minimal voltage criteria for LVH, may be normal variant ( [place] product ) T wave abnormality, consider anterolateral [...] for LVH, may be normal variant ( [place] product ) T wave abnormality, consider anterolateral ischemia Prolonged QT Abnormal ECG No previous ECGs available ASSESSMENT Acute heart failure with reduced ejection fraction, reported EF 20-25% (no official echo report from outside hospital), BNP 250, unclear exact etiology at this time ischemic versus nonischemic Mildly elevated troponin (more content not included)... Normal [facility] MAGNESIUMon 09-07-2024 Magnesium [Mass/Vol] 2.3 mg/dL Normal 1.9-2.7 [facility] Comment on above: Performed By: #### L [id number] #### [facility] (AKER) [address] [place] [address] Magnesium [Mass/Vol] 2.3 mg/dL Normal 1.9-2.7 [facility] Comment on above: Performed By: #### L [id number] #### [facility] ([facility]) [address] [place] [address] NURSNOTEon 09-07-2024 NURSNOTE Offset Press Operator Helper notified by lab at 12:43 PM that pt Hep B core was reactive with lab check and technical report writer called to notify lift slab operator with and also updated Dr. Mckeon in regards to results. Normal [facility] PHOSPHORUSon 09-07-2024 Magnesium [Mass/Vol] 4.8 mg/dL Normal 2.5-5.0 [facility] Comment on above: Performed By: #### L [id number] #### [facility] ([employer]) [address] [place] [address] PROTIME-INRon 09-07-2024 INR IN PPP BY COAGULATION ASSAY 1.10 Normal 0.90-1.10 [facility] Comment on above: Result Comment: ACCC P [...] 1995;[id number]. Performed By: #### L AB16 #### [facility] ([employer]) [address] [place] [address] PROTHROMBIN TIME (PT) IN PPP BY COAGULATION ASSAY 14.2 Seconds Normal 12.3-14.8 [facility] Comment on above: Performed By: #### L AB16 #### [facility] ([employer]) [address] [place] [address] TROPONIN Ion 09-07-2024 Troponin I.cardiac [Mass/Vol] 0.02 ng/mL Normal 0.00-0.04 [facility] Comment on above: Performed By: #### L AB16 #### [facility] (BEAKER) [address] [place] [address] Troponin I.cardiac [Mass/Vol] 0.03 ng/mL Normal 0.00-0.04 [facility] Comment on above: Performed By: #### L [id number] #### [facility] (BEAKER) [address] [place] [address] Troponin I.cardiac [Mass/Vol] 0.07 ng/mL High 0.00-0.04 [facility] Comment on above: Performed By: #### L [id number] #### [facility] ([facility]AKER) [address] [place] [address] POCT Influenza A/Influenza B /SARS-COV-2 VeritorOrdered By: Katy Vega on 10-05-2023 External Poct Influenza A Antigen Positive [facility] External Poct Influenza B Antigen Negative [facility] SARS-CoV-2 (COVID-19) Ag IA.rapid Ql (Resp) Negative [facility] XR CHEST 2 Von 12-26-2022 [...] SAUNDRA ROA Date: 2022-12-26 00:14 Normal [facility] Covid-19 PCR (CVDTBH)on 11-29 SARS-CoV-2 (COVID-19) RNA DOTTY+probe Ql (Unsp spec) Not detected Normal NOT DETECTED [facility] Comment on above: Result Comment: This test is not yet approved or cleared by the [place] FDA. When there are no FDA-approved or cleared tests available, and other criteria are met, FDA can make tests available under an emergency access mechanism called an Emergency Use Authorization (EUA). The EUA for this test is supported by the [employer] and Human Service's (HHS's) declaration [...] SARS-CoV-2. Performed By: #### C VDTBH #### [facility] Laboratory [address] [place] [address] Dr. Laura Kidd GROUP A STREP CULTUREon 11-29 S. pyogenes Ag Ql (Unsp spec) Culture Observations: NEGATIVE FOR GROUP A STREPTOCOCCUS. Normal [facility] Comment on above: Performed By: #### G RASTCX, SSCRN #### [facility] Laboratory [address] [place] [address] Dr. Laura Kidd STREPT SCREENon 12-25-2022 STREP SCREEN A Negative Normal NEGATIVE [facility] Comment on above: Performed By: #### G RASTCX, SSCRN #### [facility] Laboratory [address] [place] [address] Dr. Laura Kidd SYMPTOMATIC COVID-19 ANTIGEN on 12-25-2022 EUA Statement SEE BELOW Normal [facility] Comment on above: Result Comment: This [...] sooner. Performed By: #### C VDAGS #### [facility] Laboratory [address] [address] [address] Laura Kidd SARS-CoV-2 (COVID-19) RNA DOTTY+probe Ql (Unsp spec) Negative Normal NEGATIVE [facility] Comment on above: Performed By: #### C VDAGS #### [facility] Laboratory [id number] Laura Kidd Quick Strepon 12-22-2022 S. pyogenes Org specific cx Ql (Throat) Negative [facility] Other Quick Strep Adore Me [facility] [employer] Other Vital Signs Date Time Vital Sign Value Performing Clinician Facility 09-20-2024 11:43-0500 Body height 152.8 cm [facility] Work Phone: [facility] 09-20-2024 11:43-0500 Body mass index (BMI) [Ratio] 25.37 kg/m2 [facility] Work Phone: [facility] 09-20-2024 11:43-0500 Body temperature 97.59 [degF] [facility] Work Phone: [facility] 09-20-2024 11:43-0500 Body weight 59.24 kg [facility] Work Phone: [facility] 09-20-2024 11:43-0500 Diastolic blood pressure 70 mm[Hg] [facility] Work Phone: [facility] 09-20-2024 11:43-0500 Heart rate 95 /min [facility] Work Phone: [facility] 09-20-2024 11:43-0500 Respiratory rate 18 /min [facility] Work Phone: [facility] 09-20-2024 11:43-0500 SaO2% (BldA) [Mass fraction] 99 % Malcolm Furlong DO Work Phone: [facility] 09-20-2024 11:43-0500 Systolic blood pressure 104 mm[Hg] Malcolm [facility] 10-05-2023 15:15-0500 Body height 152.8 cm Malcolm Furlong DO [facility] 10-05-2023 15:15-0500 Body temperature 99.3 [degF] Malcolm Furlong DO Work Phone: [facility] 10-05-2023 15:15-0500 Diastolic blood pressure 60 mm[Hg] Malcolm Furlong DO [facility] 10-05-2023 15:15-0500 Heart rate 103 /min Malcolm Furlong DO [facility] 10-05-2023 15:15-0500 SaO2% (BldA) [Mass fraction] 98 % Malcolm Furlong DO Work Phone: [facility] 10-05-2023 15:15-0500 Systolic blood pressure 118 mm[Hg] Malcolm Furlong DO Work Phone: [facility] 12-22-2022 18:50-0400 Body height 151.13 cm Bernice Dash Other [facility] Other 12-22-2022 18:50-0400 Body mass index (BMI) [Ratio] 23.83 kg/m2 Bernice Dash Other [facility] Other 12-22-2022 18:50-0400 Body temperature 97.6 [degF] Bernice Dash Other [facility] Other 12-22-2022 18:50-0400 Body weight 54.43 kg Bernice Dash Other [facility] Other 12-22-2022 18:50-0400 Respiratory rate 18 /min Bernice Dash Other [facility] Other 12-22-2022 18:50-0400 SaO2% (BldA) [Mass fraction] 97 % Bernice Dash Other [employer] Other Encounters Encounter Date Encounter Type Care Provider Facility Start: 12-11-2024 End: 12-11-2024 ambulatory [facility] Start: 09-20-2024 End: 09-20-2024 [facility] Start: 09-20-2024 End: 09-20-2024 Office outpatient visit 25 minutes [facility] Comment on above: Heart failure, unspe cified HF chronicity, unspecified heart failure type (CMS-HCC) (Primary Dx); Heart failure with reduced ejection fraction (HFrEF, <= 40%) (CMS-HCC); Calculus of gallbladder without cholecystitis without obstruction; Elevated liver enzymes Start: 09-19-2024 End: 09-19-2024 ambulatory [facility] Start: 09-07-2024 Evaluation and manag ement of inpatient [facility] Start: 09-07-2024 Evaluation and manag ement of inpatient [facility] Start: 09-07-2024 End: 09-08-2024 Evaluation and management of inpatient [facility] Start: 10-05-2023 End: 10-05-2023 Office outpatient visit 15 minutes Malcolm Claribel Davis DO [facility] Phone[facility] Comment on above: Influenza A (Primary Dx); Cough, unspecified type Start: 10-05-2023 End: 10-05-2023 ambulatory MALCOLM METCALF [facility] Start: 12-25-2022 End: 12-26-[address] APOLONIA GROVE Facility:[facility] Start: 12-22-2022 End: 12-22-2022 ambulatory Bernice Dash Other [place] [employer] Other Start: 12-22-2022 Office outpatient ne w [...] 09-20-2025 Adult BMI Screening Adult BMI Screening [facility] Start: 09-20-2025 Depression Screening Depression Screening [facility] Start: 09-20-2025 Tobacco Screening Tobacco Screening [facility] Start: 07-29-2024 Adult BMI Screening Adult BMI Screening [facility] Start: 06-17-2024 Depression Screening Depression Screening [facility] Start: 06-17-2024 Tobacco Screening Tobacco Screening [facility] Start: 04-30-2024 Influenza vaccination Influenza Vaccine [facility] Start: 04-30-2023 Influenza vaccination Influenza Vaccine [facility] Start: 12-16-2011 Administration of varicella zoster vaccine Zoster (Shingles) Vaccine (1 of 2) [facility] Start: 2006 Screening for malignant neoplasm of colon Colon Cancer Screening 3 Year Cologuard [facility] Start: 2001 Screening for malignant neoplasm of breast Mammogram [facility] Start: 1982 Screening for malignant neoplasm of cervix Pap Smear [facility] Start: 1980 DTaP,Tdap and Td Vaccines (1 - Tdap) DTaP,Tdap and Td Vaccines (1 - Tdap) [facility] Start: 12-16-1979 Adult BMI Follow Up Plan Adult BMI Follow Up Plan [facility] Payers Date Payer Category Payer Unknown [employer] OUT OF STATE PPO/TRUST [id number] 2020-Present [phone] [address] [place] [address] [id number] 1960 Unknown [id number] 1960 Unknown [id number] 1960 Unknown [id number] 1958 [facility] [id number] Social History Date Type Detail Facility Unknown if ever smoked [employer] Other Start: 12-29-2022 End: 10-05-2023 Sex Assigned At [facility] Other Start: 12-29-2022 Tobacco smoking stat [facility] Never smoked tobacco [facility] Start: 12-29-2022 Tobacco use and exposure Smokeless tobacco non-user [facility] Start: 10-05-2023 End: 09-20-2024 Alcoholic beverage intake Lifetime non-drinker (finding) [facility] Start: 12-29-2022 End: 10-05-2023 History of Social function [facility] How often to you hav e a drink containing alcohol? Never [facility] How many standard drinks containing alcohol do you have on a typical day? Patient does not drink [facility] How hard is it for y ou to pay for the very basics like food, housing, medical care, and heating Not very hard [facility] Start: 1960 Sex assigned at Not on file P At [employer] [facility] Start: 04-04-2015 Sex Female (finding) [facility] Clinical Notes 12-22-2022 to 12-11-2024 Malcolm Metcalf, DO - 09/20/2024 11:30 AM Oseas Metcalf, DO - 10/05/2023 3:20 PM EST Note Date & Type Note Facility 12-11-2024 Note [facility] Subjective Jo Ann Lobo is a 63 y.o. year old female patient being seen for Congestive Heart Failure , Cardiomyopathy, pericardial effusion , and Abnormal Potassium Patient Active Problem List Diagnosis HFrEF (heart failure with reduced ejection fraction) (CMS/HCC) Pericardial effusion Pleural effusion, bilateral Transaminitis Heart failure (CMS/HCC) Coronary artery disease involving pokagon coronary artery of pokagon heart without angina pectoris Mixed hyperlipidemia HPI 12/11/2024 Patient states that she has been doing well. She denies any chest discomfort at rest or with exertion. She denies exertional dyspnea, orthopnea or paroxysmal nocturnal dyspnea. She denies dizziness, syncope or near syncope. She denies palpitations, legs edema or discomfort on exertion. 09/19/2024 The patient is a 63-year-old female who came to [facility] on 09/07/2024 with shortness of breath and cough and her chest CT showed evidence of small to moderate pericardial effusion therefore she was transferred to [facility]. She underwent echocardiographic study which showed severely [...] (H) 09/08/2024 Lab (more content not included)... [facility] 09-20-2024 History of Present illness Narrative Subjective Patient ID: Jo Ann Lobo is a 63 y.o. female. Jo Ann presents today for hospital follow up. She went to the emergency room for shortness a breath and cough. She was found to be in heart failure with pleural and pericardial effusions. She was also noted to have cholelithiasis. She was transferred to [facility] for further care. She had a cardiac catheterization which did not reveal any significant coronary artery disease. Her EF ranged from 15% to 25% depending on the study and interpretation. She saw the solution design and analysis manager yesterday and her Coreg was increased to [...] any insurance right now. She retired from [employer] last October and [employer] insurance was too expensive. She also had [...] Exam Vitals reviewed. Exam conducted with a scarrer present (). Constitutional: General: She is not [...] unspecified HF chronicity, unspecified heart failure type ([facility]-HCC) Follow up with specialist. I recommend that [...] [facility]. documented in this encounter [facility] 09-19-2024 Note [facility] Subjective Jo Ann Lobo is a 63 y.o. year old female patient being seen for Congestive Heart Failure , Cardiomyopathy, pericardial effusion , and Abnormal Potassium Patient Active Problem List Diagnosis HFrEF (heart failure with reduced ejection fraction) (CMS/HCC) Pericardial effusion Pleural effusion, bilateral Transaminitis Heart failure (CMS/HCC) HPI The patient is a 63-year-old female who came to [facility] on 09/07/2024 with shortness of breath and cough and her chest CT showed evidence of small to moderate pericardial effusion therefore she was transferred to [facility]. She underwent echocardiographic study which showed severely [...] enlargement, left axi (more content not included)... [facility] 09-08-2024 Note Hospital Medicine Discharge Summary Final Discharge Diagnosis: # Acute HFrEF 15-20% # Nonischemic cardiomyopathy # Positive Hep B core antibodies: Admission Diagnosis: Heart failure (CMS/HCC) [I50.9] # Pericardial effusion # Hypokalemia Hospital course: Surgical, Invasive or Diagnostic Procedures Done During Admission: Cardiac Cath Consultations During Admission: Cardiology 63 y.o. female who came from [facility] with shortness of breath for 2 weeks. [...] severe bringing her to the ER in [place]. She reports orthopnea. She denies smoking, alcohol use or drug use. CTA in [place] was negative for PE and showed small [...] Center 09/19/2024 3:40 PM America George MD [facility] Your medication list START taking these [...] Medications These medications were sent to [facility] [place], [place] - [facility] [address] [facility] [address] aspirin 81 mg EC tablet atorvastatin 20 [...] discharge - r (more content not included)... 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 I agree with his assessment and plan [...] Value Ventricular Rate 92 Atrial Rate 92 GA Interval 168 QRS DURATION 100 QT Interval 422 QTC CALCULATION(BAZETT) 521 P Orange 20 R-Orange -31 T Wave Orange 31 Impression Normal sinus rhythm Possible Left atrial enlargement Left axis deviation Minimal voltage criteria for LVH, may be normal variant ( [place] product ) T wave abnormality, consider anterolateral ischemia Prolonged QT Abnormal ECG No previous ECGs available Confirmed by STRESS, (55), communications editor Efe HADLEY, L.S. (2) on 09/07/2024 1:22:29 PM Lab Results Component Value Date TROPONINI 0.02 09/07/2024 Complete Echo (TTE) w/wo Imaging Agent, Strain, 3D, Bubble Study Result Date: 09/07/2024 1 1 [facility] Heart Station [address] [place] [address] [phone] (fax) Echocardiogram-[facility] Name: JO ANN LOBO Study Date: 09/07/2024 11:29 AM B/P: 117 mmHg/78 mmHg HR: 89 bpm Date of : 1960 Location: [facility] Height: 58 in. Age: 63 year(s) Patient Room: 3120 Weight: 130 lb. Gender: Female Patient Status: InPt BSA: 1.52 m2 (more content not included)... [facility] 09-07-2024 Note Case was discussed w ith the CHESTER on 09/07/2024. I agree with the history, physical, assessment, and plan of care. I discussed the findings and therapeutic plan. I agree with the documentation, except for any updates below. TTE, cath given newly rEF Sourav Bailey MD [facility] 09-07-2024 Note Patient admitted to the hospital for: Heart failure. Chart echo from 09/07/2024 reports: EF 15-20%. Current echo report qualifies for Cardiac Rehab services per CMS eligibility criteria. A Cardiac Rehab referral diagnosis and code must also meet CMS criteria. Jocelynn Rizzo RN, BSN Cardiology Outpatient Coordinator Cardiopulmonary Rehab [facility] 09-07-2024 Note 09/07/24 8461 Admission Assessment Questions Verify insurance with patient [...] Status Interested Does the patient have a insurance case manager assigned to them through their insurance? No [...] to send link and activate MyChart? Yes [facility] 09-07-2024 Note Fatty Liver Course: RUQ US from [place] with hepatic steatosis, no hepatomegaly or hepatic [...] Case will be discussed with attending physician [facility] 09-07-2024 Note Course: Cardiology e valuation Daily Update: Lasix 40mg daily Continuous telemetry [facility] 09-07-2024 Note Relevant Hx: SOB x 2 weeks, orthopnea, cough Course: Cardiology consult, BNP, troponin trend Lasix 40mg daily Coreg 3.125 BID Strict intake and output Daily weights [facility] 09-07-2024 Note Continuous pulse ox Lasix 40 mg daily [facility] 09-07-2024 Note Hospital Medicine History and Physical 09/07/2024 8:03 AM THE HOSPITALIST TEAM PREFERS TO USE [employer] FOR NON-URGENT COMMUNICATION 7AM-7PM. IF I DO NOT RESPOND WITHIN 20 MINUTES OR URGENT MATTERS, PLEASE CALL THROUGH THE SCIENTIFIC RESEARCH MANAGER. FROM 7PM-7AM, PLEASE PAGE [phone](COVR). Chief Complaint No chief complaint on file. History of Present Illness Jo Ann Lobo is an 63 y.o. female who came from [facility] with shortness of breath for 2 weeks. [...] severe bringing her to the ER in [place]. She reports orthopnea. She denies smoking, alcohol use or drug use. CTA in [place] was negative for PE and showed small [...] HFrEF (heart failure with reduced ejection fraction) (CMS/[facility]) Relevant Hx: SOB x 2 weeks, orthopnea, cough Course: Cardiology consult, BNP, troponin trend Lasix 40mg daily Coreg 3.125 BID Strict intake and output Daily weights Pericardial effusion Course: Cardiology evaluation Daily Update: Lasix 40mg daily Continuous telemetry Pleural effusion, bilateral Continuous pulse ox Lasix 40 mg daily Transaminitis Fatty Liver Course: RUQ US from [place] with hepatic steatosis, no hepatomegaly or hepatic [...] this hospital stay by a member of [facility]. Past Medical History History reviewed. No pertinent past medical history. Past Surgical History History reviewed. No pertinent surgical history. Social Hist (more content not included)... [facility] 10-05-2023 History of Present illness Narrative pocSubjective [...] might have gotten sick from people at [facility] on Wednesday. Sinusitis The following portions of [...] Enlarged and swollen. Not pale. Mouth/Throat: Lips: [place]. Pharynx: Oropharynx is clear. Neck: Trachea: Trachea [...] for 5 days. documented in this encounter [facility] 12-22-2022 Evaluation note Encounter Date Diagnosis Assessment [...] understanding and is agreeable with treatment plan. [facility] Other Evaluation note* Diagnosis Heart failure, unspecified HF chronicity, unspecified heart failure type ([facility]-HCC)- Primary Heart failure with reduced ejection fraction [...] pain in side from coughing Follow-up 09/05- [facility] Reason Comments Headache Sinusitis 3 days INFORMATION SOURCE (unrecogn ized section and content) DATE CREATED AUTHOR 12/28/2022 [facility] [place] [facility] DATE CREATED AUTHOR AUTHOR'S ORGANIZ ATION 09/22/2024 [facility] DATE CREATED AUTHOR AUTHOR'S ORGANIZ ATION 12/13/2024 [facility] Care Teams (unrecognized sec tion and content) Technical Planner Relationship Specialty Start Date End Date Malcolm Metcalf DO [address], [facility] [place] [address] PCP - General Family Medicine 12/28/22 Technical Planner Relationship Specialty Start Date End Date Malcolm Metcalf DO [address], [facility] [place] [address] PCP - General Family Medicine 12/28/22 Technical Planner Relationship Specialty Start Date End Date Malcolm Metcalf DO [address], [place] [address] PCP - General Family Medicine 12/28/22 FOR [...] BE BASED ON THE PRIMARY CLINICAL RECORDS. [facility]. provides no warranty or guarantee of the accuracy or completeness of information in this document.
[2025-02-02 09:50] LABS: Anion Gap 13.3; BUN Creatinine Ratio 22.2; Calcium 9.6 mg/dL (8.5-10.1); Carbon Dioxide 29.3 mmol/L (21.0-32.0); Chloride 103 mmol/L (98-107); Estimated GFR (African America >60 (>=60 mL/min/1.73m^2); Estimated GFR (Non-African Ame >60 (>=60 mL/min/1.73m^2); Glucose 114 mg/dL (74-106); Potassium 3.6 mmol/L (3.5-5.1); Sodium 142 mmol/L (136-145)
== END 2025-02-02 09:17 | disposition home or self-care (01) ==
LOC: LAB 09:17
PROVIDERS: PCP Family Medicine; Visit Provider Internal Medicine Cardiovascular Disease
DX: I50.42 Chronic combined systolic (congestive) and diastolic (congestive) heart failure (principal)
CPT/HCPCS: 36415; 80048

== ENCOUNTER 2025-08-21 12:34 | Emergency (ER) | payer OTHER, SELFPAY ==
[2025-08-21 12:47] VITALS: BP 174/100; PULSE 107; TEMP 36.7; O2SAT 98; BMI 28.0
--- OUTSIDE RECORDS SUMMARY | 2025-08-21 13:14 | XMS_ITS | Clinical Summary ---
Author Organization [facility] Address [address] [place] [address] Care Team Providers Care Privacy Manager Name Role Phone YaakovMalcolm merrill Primary Care Provider [phone] Allergies Active AllergyReactionsCriticalityNoted DateCommentsClarithromycinHivesMedium 09/07/20247761FayzhlhIjnsvUjyarn51/09/2025 Medications MedicationSigDispense QuantityRefillsLast FilledStart DateEnd DateStatus furosemide (Lasix) 20 mg tablet Indications:Heart failure (CMS/HCC),HFrEF (heart failure with reduced ejection fraction) (CMS/HCC)Take 1 tablet (20 mg) by mouth in the morning for 360 doses. 90 tablet /ctive spironolactone (Aldactone) 25 mg tablet Indications:Heart failure (CMS/HCC),HFrEF (heart failure with reduced ejection fraction) (CMS/HCC)Take 1 tablet (25 mg) by mouth once daily as directed. 90 tablet /ctive carvedilol (Coreg) 6.25 mg tablet Indications:HFrEF (heart failure with reduced ejection fraction) (CMS/HCC)Take 1 tablet (6.25 mg) by mouth with breakfast and with evening meal. 180 tablet /ctive aspirin 81 mg EC tablet Take 81 mg by mouth every other day.Active sacubitril-valsartan (Entresto) 49-51 mg tablet Indications:Chronic combined systolic and diastolic heart failure (CMS/HCC)Take 1 tablet by mouth two times daily. 60 tablet 1204/ctive empagliflozin (Jardiance) 10 mg Indications:Chronic combined systolic and diastolic heart failure (CMS/HCC)Take 1 tablet (10 mg) by mouth in the morning. 30 tablet 11012/11/38068812/11/2025ctive carvedilol (Coreg) 12.5 mg tablet Indications:Benign hypertensive heart disease without congestive heart failure Take 1 tablet (12.5 mg) by mouth with breakfast and with evening meal. 180 tablet 306///ctive Active Problems ProblemNoted DateDiagnosed DateEssential uskslgtfdtgc74/14/2025oronary artery disease involving chilkoot coronary artery of chilkoot heart without angina pectoris 09/19/2024Mixed qtussynvivjtsn44/21/2025HFrEF (heart failure with reduced ejection fraction)09/07/2024 Assessment & Plan (09/07/2024 8:31 AM EST): Relevant Hx: SOB x 2 weeks, orthopnea, cough Course: Cardiology consult, BNP, troponin trend Lasix 40mg daily Coreg 3.125 BID Strict intake and output Daily weights Pericardial uatlzppv93/09/2025 Assessment & Plan (09/07/2024 8:31 AM EST): Course: Cardiology evaluation Daily Update: Lasix 40mg daily Continuous telemetry Pleural effusion, hoawovmpi01/09/2025 Assessment & Plan (09/07/2024 8:31 AM EST): Continuous pulse ox Lasix 40 mg daily Afewzlauyypbh05/09/2025 Assessment & Plan (09/07/2024 9:09 AM EST): Fatty Liver Course: RUQ US from [place] with hepatic steatosis, no hepatomegaly or hepatic [...] will be discussed with attending physician Heart uxkauhs9409/06/2024 Family History Medical HistoryRelationNameCommentsNo Known ProblemsFatherNo Known Problems MotherRelationNameStatusCommentsBrotherAliveFatherDeceasedMotherAliveSisterAlive Social History Tobacco UseTypesPacks/DayYears UsedDateSmoking Tobacco: NeverSmokeless Tobacco: Never Tobacco Cessation:Counseling Given: Not Answered Alcohol UseStandard Drinks/WeekCommentsNot Currently0 (1 standard drink = 0.6 oz pure alcohol)[facility] UtilitiesAnswerDate RecordedIn the past 12 months has the [employer], gas, oil, or water [employer] threatened to shut off services in your home?No09/07/2024Humiliation, Afraid, Rape, and Kick questionnaireAnswerDate RecordedWithin the last year, have you been afraid of your partner or ex-partner?No09/07/2024Emotionally AbusedNot on file09/07/2024Physically Abused Not on file09/07/2024Sexually AbusedNot on file09/07/2024Overall Financial Resource Strain (CARDIA)AnswerDate RecordedHow hard is it for you to pay for the very basics like food, housing, medical care, and heating?Not hard at all 09/07/2024TransportationAnswerDate RecordedIn the past 12 months, has lack of transportation kept you from medical appointments or from getting medications?No 09/07/2024Lack of Transportation (Non-Medical)Not on file09/07/2024Housing Stability Vital SignAnswerDate RecordedIn the last 12 months, was there a time when you were not able to pay the mortgage or rent on time?No09/07/2024Number of Times Moved in the Last YearNot on file09/07/2024t any time in the past 12 months, were you homeless or living in a senior living (including now)?No09/07/2024 Hunger Vital SignAnswerDate RecordedWithin the past 12 months, you worried that your food would run out before you got the money to buymore.Never true09/07/2024 Ran Out of Food in the Last YearNot on file09/07/2024CommentsUnknownSex and Gender InformationValueDate RecordedSex Assigned at QzbpaOtzpwp83/09/2025 6:10 AM ESTLegal VxfRtgkde02/08/2025 3:17 PM ESTGender AenvnygyMjvsjw63/09/2025 6:10 AM ESTSexual OrientationHeterosexual or Jtgvbanh37/09/2025 6:10 AM EST Last Filed Vital Signs Vital SignReadingTime TakenCommentsBlood Fcnybxzv420/9576402/05/2025 9:41 AM EDT Fhynt55024/09/2025 9:41 AM IDNIqjqahrpouq85.6 ??C (97.9 ??F)09/08/2024 11:20 AM ESTRespiratory Zbve723609/08/2024 11:20 AM ESTOxygen Kackiofdlc34%02/05/2025 9:41 AM EDTInhaled Oxygen Concentration--Ljblpv54.6 kg (127 lb)02/05/2025 9:41 AM EDT Vwypvw918.3 cm (4' 10 )02/05/2025 9:41 AM EDTBody Mass Index26.54002/05/2025 9:41 AM EDT Plan of Treatment Health MaintenanceDue DateLast DoneCommentsCT Diteetlagrud58/18/1962Colonoscopy 2Colorectal Cancer Xtgwdxnau86/18/1962FIT-DNA1961FIT1961 FOBT9870Aqmppkxspwvyg47/18/1962Depression Gwfjuqnzk14/18/1974Pneumococcal Vaccine: Pediatrics (0 to 5 Years) and At-Risk Patients (6 to 64 Years) (1 of 2 - PCV)1980Pap Smear1982Adult Stlhvum8612/16/1983Cervical Cancer Nsvqxzftn55/18/1992HPV/Qzwkxt1512/16/19915497Zsvqxhwab92/18/2002Zoster Vaccines (1 of 2)12/16/2011COVID-19 Vaccine (1 - 2024- season)2025Influenza Vaccine (#1)2025HIB VaccinesAged OutNo longer eligible based on patient's age to complete this topicHPV VaccinesAged OutNo longer eligible based on patient's age to complete this topicIPV VaccinesAged OutNo longer eligible based on patient's age to complete this topicMeningococcal B VaccineAged OutNo longer eligible based on patient's age to complete this topicMeningococcal VaccineAged OutNo longer eligible based on patient's age to complete this topicRotavirus Vaccines Aged OutNo longer eligible based on patient's age to complete this topic Advance Directives * Full Code (Latest Code Status on File) Date ActivatedDate InactivatedComments09/07/2024 6:07 AM09/08/2024 3:11 PM Care Teams Team MemberRelationshipSpecialtyStart DateEnd Date Malcolm Metcalf DO [address] [facility] PCP - GeneralFamily Medicine09/07/24
--- OUTSIDE RECORDS SUMMARY | 2025-08-21 13:14 | XMS_ITS | Clinical Summary ---
Author Organization [facility] [facility] Address [id number] 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 Role Phone Malcolm Metcalf Primary Care Provider [phone] Allergies Active AllergyReactionsCriticalityNoted OqvlByzwcqnnCzazcniwtewyaw25/02/2023 SaziqvnTqqkiFhpyyx33/09/6923LaiihlkjdkzMjekj91/19/2023 Medications MedicationSigDispense QuantityRefillsLast FilledStart DateEnd DateStatus furosemide (LASIX) 20 mg tablet Take 1 tablet (20 mg total) by mouth daily.ctive spironolactone (ALDACTONE) 25 mg tablet Take 1 tablet (25 mg total) by mouth.ctive valsartan (DIOVAN) 40 mg tablet Take 1 tablet (40 mg total) by mouth.ctive carvediloL (COREG) 6.25 mg tablet Take 1 tablet (6.25 mg total) by mouth in the morning and 1 tablet (6.25 mg total) in the evening. Take with meals. Not taking yet. Active Active Problems ProblemNoted DateDiagnosed DateElevated liver fdkzpsu2709/20/2024alculus of gallbladder without cholecystitis without agreueusxhj20/22/2025Heart failure with reduced ejection fraction (HFrEF, <= 40%)09/20/2024 Immunizations No known immunizations Family History Medical HistoryRelationNameCommentsgi bleedBrother 2MigrainesFatherNo Known ProblemsMotherRelationNameStatusCommentsBrother 1AliveBrother 2DeceasedDaughter AliveFatherDeceasedMotherAliveSisterAlive Social History Tobacco UseTypesPacks/DayYears UsedDateSmoking Tobacco: NeverSmokeless Tobacco: NeverAlcohol UseStandard Drinks/WeekCommentsNever0 (1 standard drink = 0.6 oz pure alcohol)AUDIT-CAnswerDate RecordedQ1: How often do you have a drink containing alcohol?Never12/29/2022Q2: How many drinks containing alcohol do you have on a typical day when you are drinking?Patient does not drink12/29/2022Q3: How often do you have six or more drinks on one occasion?Never12/29/2022Overall Financial Resource Strain (CARDIA)AnswerDate RecordedHow hard is it for you to pay for the very basics like food, housing, medical care, and heating?Not very hard09/18/2024PHQ-2AnswerDate RecordedTotal Amqmf959PRAPARE - TransportationAnswerDate RecordedIn the past 12 months, has lack of transportation kept you from medical appointments or from getting medications?No 09/18/2024In the past 12 months, has lack of transportation kept you from meetings, work, or from getting things needed for daily living?No09/18/2024 Housing InstabilityAnswerDate RecordedAre you worried or concerned that in the next two months you may not have stable housing that you own, rent or stay in as a part of a household?No09/18/2024hildcareAnswerDate RecordedChildcareUnknown 02/08/2019EmploymentAnswerDate RecordedDo you need help finding a local career center and/or a training program?No09/20/2024Hunger ScreeningAnswerDate Recorded Within the past 12 months we worried whether our food would run out before we got money to buy more.Never True09/18/2024Within the past 12 months the food we bought just didn't last and we didn't have money to get more.Never True 09/18/2024CommentsUnknownSex and Gender InformationValueDate RecordedSex Assigned at BirthNot on fileLegal LvoVwbuab27/06/2015 12:10 PM EDTGender IdentityNot on fileSexual OrientationNot on file Last Filed Vital Signs Vital SignReadingTime TakenCommentsBlood Izkbwndr179/70009/20/2024 11:43 AM EST Xswjq419809/20/2024 11:43 AM YZMKnrmbgkdnmn57.4 ??C (97.6 ??F)09/20/2024 11:43 AM ESTRespiratory Bvog663109/20/2024 11:43 AM ESTOxygen Wqojraxvhn24%09/20/2024 11:43 AM ESTInhaled Oxygen Concentration--Wxnmgr66.2 kg (130 lb 9.6 oz)09/20/2024 11:43 AM ZGNEzzkye388.8 cm (5' 0.16 )09/20/2024 11:43 AM ESTBody Mass Index25.37 09/20/2024 11:43 AM EST Plan of Treatment Health MaintenanceDue DateLast DoneCommentsAdult BMI Follow Up Plan12/16/1979 DTaP,Tdap and Td Vaccines (1 - Tdap)1980Pap Smear1982Mammogram 2001Colon Cancer Screening 3 Year Vejudoknw24/18/2007Zoster (Shingles) Vaccine (1 of 2)12/16/2011Influenza Xarvhgd5204/30/2025dult BMI Screening Depression Uonubkfhc06Tobacco Screening RSV ( or age 60+ yrs) (1 - 1-dose 75+ series) 2036 Medical Devices Not on file Care Teams Team MemberRelationshipSpecialtyStart DateEnd Date Malcolm Metcalf DO [address] [facility], [place] [address] PCP - GeneralFamily Medicine12/28/22
--- NOTE | 2025-08-21 13:41 | XR_ITS ---
[address] [address] Patient Name: JOHNNY LOBO MRN: [id number] date: 1960 Sex: F Assigned Patient Location: ER Current Patient Location: ER Accession/Order Number: [id number] Exam Date: 08/21/2025 14:20 Report Date: 08/21/2025 14:45 At the request of: JEZ BATEMAN MD Procedure: XR shoulder LT min 2V LEFT SHOULDER - - 3 views CLINICAL HISTORY: injury COMPARISON: None FINDINGS: Mild degenerative changes involving the AC joints without acute bony process XR/XR shoulder LT min 2V IMPRESSION: DEGENERATIVE CHANGES WITHOUT ACUTE PROCESS. Impression dictated by: James Alonzo Jr., D.OKan 08/21/2025 2:45 PM Dictation Location: [place] [address] Electronically authenticated by: [id number] Y Date: 08/21/2025 14:45
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
== END 2025-08-21 16:30 | disposition home or self-care (01) ==
PROVIDERS: Emergency Provider Emergency Medicine; PCP Family Medicine
DX: M25.512 Pain in left shoulder (principal); M54.2 Cervicalgia; M54.50 Low back pain, unspecified
CPT/HCPCS: 73030; 99283